=== PATIENT | male | born 1945 | race Caucasian/White ===

== ENCOUNTER 2018-03-28 16:33 | Inpatient (IN) | payer MEDICARE, OTHER ==
[2018-03-28] MEDS ORDERED: ASPIRIN 81 MG PO STA (16:53)
[2018-03-28] MEDS ORDERED: NITROGLYCERIN OINT 1 INCH/GM PACKET TOPICAL STA (16:53)
--- NOTE | 2018-03-28 16:56 | ED ---
General Adult HPI - General Chief complaint: Chest Pain Stated complaint: Chest pain Time Seen by Provider: 03/28/18 16:44 Source: patient, family, RN notes reviewed Mode of arrival: ambulatory Limitations: no limitations - History of Present Illness Initial comments: Patient is a pleasant 72-year-old male presenting to the emergency Department with chest discomfort. Patient has had intermittent chest heaviness over the past 4-5 days. Discomfort is mild at this time. Discomfort does get as bad as 7/10. Discomfort is not necessarily exertional. No associated dyspnea, nausea , or diaphoresis. No history of similar symptoms previously. Patient did have elective right hip surgery/replacement done approximately 5 weeks ago. No leg pain or leg swelling. No radiation. - Related Data Home Medications Medication Instructions Recorded Confirmed Calcium Carbonate [Calcium] 600 mg PO DAILY 03/28/18 03/28/18 Hydrocodone/Acetaminophen [[place] 1 tab PO Q6H PRN 03/28/18 03/28/18 7.5-325] Losartan [Cozaar] 50 mg PO DAILY 03/28/18 03/28/18 Meloxicam [Mobic] 7.5 mg PO BID 03/28/18 03/28/18 Multivitamins, Thera [Multivitamin 1 tab PO DAILY 03/28/18 03/28/18 (formulary)] Simvastatin 40 mg PO DAILY 03/28/18 03/28/18 Vit C/E/Zn/Coppr/Lutein/Zeaxan 1 cap PO BID 03/28/18 03/28/18 [Preservision Areds 2 Softgel] predniSONE 40 mg PO DAILY 03/28/18 03/28/18 Allergies Allergy/AdvReac Type Severity Reaction Status Date / Time No Known Allergies Allergy Verified 03/28/18 17:25 Review of Systems ROS Statement: Those systems with pertinent positive or pertinent negative responses have been documented in the HPI. ROS Other: All systems not noted in ROS Statement are negative. Constitutional: Denies: fever Eyes: Denies: eye pain ENT: Denies: ear pain Respiratory: Denies: cough, dyspnea Cardiovascular: Reports: chest pain Endocrine: Denies: fatigue Gastrointestinal: Denies: abdominal pain Genitourinary: Denies: dysuria Musculoskeletal: Denies: back pain Skin: Denies: rash Neurological: Denies: weakness Past Medical History Past Medical History: Hyperlipidemia, Hypertension History of Any Multi-Drug Resistant Organisms: None Reported Past Surgical History: Orthopedic Surgery Additional Past Surgical History / Comment(s): carpel tunnel Past Psychological History: No Psychological Hx Reported Smoking Status: Former smoker Past Alcohol Use History: None Reported Past Drug Use History: None Reported General Exam Limitations: no limitations General appearance: alert, in no apparent distress Head exam: Present: atraumatic Eye exam: Present: normal appearance, PERRL ENT exam: Present: normal oropharynx Neck exam: Present: normal inspection Respiratory exam: Present: normal lung sounds bilaterally. Absent: chest wall tenderness Cardiovascular Exam: Present: normal rhythm, bradycardia Expanded Peripheral pulses: 2+: Radial (R), Radial (L), Posterior Tibialis (R), Posterior Tibialis (L) GI/Abdominal exam: Present: soft. Absent: tenderness Extremities exam: Present: normal inspection. Absent: pedal edema, calf tenderness Neurological exam: Present: alert Psychiatric exam: Present: normal affect, normal mood Skin exam: Present: normal color Course Vital Signs 03/28/18 03/28/18 03/28/18 16:34 17:20 18:24 Temperature 98.2 F 98.2 F Pulse Rate 52 L 48 L 47 L Respiratory 18 18 Rate Blood Pressure 144/63 147/70 148/70 O2 Sat by Pulse 99 99 100 Oximetry EKG Findings - EKG Comments: EKG Findings:: Sinus bradycardia 51. PA 198. QRS 92. QT 452. QTC 416. Normal axis. Incomplete right bundle-branch block. No acute ST change. Medical Decision Making - Medical Decision Making Case discussed in detail with Dr. Dave, who will admit for Dr. Linton. She does request cardiology consult, echo, and subcutaneous heparin. Patient reevaluated and updated - Lab Data Result diagrams: 03/28/18 17:04 03/28/18 17:04 Lab Results 03/28/18 03/28/18 03/28/18 Range/Units 17:04 17:04 17:04 WBC 7.0 (3.8-10.6) k/uL RBC 4.28 L (4.30-5.90) m/uL Hgb 12.5 L (13.0-17.5) gm/dL Hct 39.9 (39.0-53.0) % MCV 93.2 (80.0-100.0) fL MCH 29.2 (25.0-35.0) pg MCHC 31.3 (31.0-37.0) g/dL RDW 14.8 (11.5-15.5) % Plt Count 259 (150-450) k/uL Neutrophils % 74 % Lymphocytes % 18 % Monocytes % 6 % Eosinophils % 1 % Basophils % 0 % Neutrophils # 5.2 (1.3-7.7) k/uL Lymphocytes # 1.2 (1.0-4.8) k/uL Monocytes # 0.4 (0-1.0) k/uL Eosinophils # 0.1 (0-0.7) k/uL Basophils # 0.0 (0-0.2) k/uL Hypochromasia Slight PT (9.0-12.0) sec INR (<1.2) APTT (22.0-30.0) sec D-Dimer (<0.60) mg/L FEU Sodium 139 (137-145) mmol/L Potassium 4.5 (3.5-5.1) mmol/L Chloride 105 (98-107) mmol/L Carbon Dioxide 27 (22-30) mmol/L Anion Gap 7 mmol/L BUN 27 H (9-20) mg/dL Creatinine 0.77 (0.66-1.25) mg/dL Est GFR (CKD-EPI)AfAm >90 (>60 ml/min/1.73 sqM) Est GFR (CKD-EPI)NonAf 90 (>60 ml/min/1.73 sqM) Glucose 103 H (74-99) mg/dL Calcium 9.5 (8.4-10.2) mg/dL Magnesium 2.3 (1.6-2.3) mg/dL Total Bilirubin 0.5 (0.2-1.3) mg/dL AST 52 (17-59) U/L ALT 32 (21-72) U/L Alkaline Phosphatase 80 (38-126) U/L Total Creatine Kinase 225 H (55-170) U/L CK-MB (CK-2) 3.0 H* (0.0-2.4) ng/mL CK-MB (CK-2) Rel Index 1.3 Troponin I 0.013 (0.000-0.034) ng/mL Total Protein 7.2 (6.3-8.2) g/dL Albumin 4.1 (3.5-5.0) g/dL Amylase 74 (30-110) U/L Lipase 124 (23-300) U/L 03/28/18 Range/Units 17:04 WBC (3.8-10.6) k/uL RBC (4.30-5.90) m/uL Hgb (13.0-17.5) gm/dL Hct (39.0-53.0) % MCV (80.0-100.0) fL MCH (25.0-35.0) pg MCHC (31.0-37.0) g/dL RDW (11.5-15.5) % Plt Count (150-450) k/uL Neutrophils % % Lymphocytes % % Monocytes % % Eosinophils % % Basophils % % Neutrophils # (1.3-7.7) k/uL Lymphocytes # (1.0-4.8) k/uL Monocytes # (0-1.0) k/uL Eosinophils # (0-0.7) k/uL Basophils # (0-0.2) k/uL Hypochromasia PT 10.1 (9.0-12.0) sec INR 1.0 (<1.2) APTT 22.1 (22.0-30.0) sec D-Dimer 1.29 H (<0.60) mg/L FEU Sodium (137-145) mmol/L Potassium (3.5-5.1) mmol/L Chloride (98-107) mmol/L Carbon Dioxide (22-30) mmol/L Anion Gap mmol/L BUN (9-20) mg/dL Creatinine (0.66-1.25) mg/dL Est GFR (CKD-EPI)AfAm (>60 ml/min/1.73 sqM) Est GFR (CKD-EPI)NonAf (>60 ml/min/1.73 sqM) Glucose (74-99) mg/dL Calcium (8.4-10.2) mg/dL Magnesium (1.6-2.3) mg/dL Total Bilirubin (0.2-1.3) mg/dL AST (17-59) U/L ALT (21-72) U/L Alkaline Phosphatase (38-126) U/L Total Creatine Kinase (55-170) U/L CK-MB (CK-2) (0.0-2.4) ng/mL CK-MB (CK-2) Rel Index Troponin I (0.000-0.034) ng/mL Total Protein (6.3-8.2) g/dL Albumin (3.5-5.0) g/dL Amylase (30-110) U/L Lipase (23-300) U/L - Radiology Data Radiology results: report reviewed (Computed tomography scan of the chest negative for pulmonary embolism.), image reviewed (Chest x-ray shows no acute process.) Disposition Clinical Impression: Chest pain Disposition: ADMITTED IP TO THIS HOSP Is patient prescribed a controlled substance at d/c from ED?: No Decision Time: 18:40
[2018-03-28 17:13] LABS: Basophils % (A) 0 %; Eosinophils # (A) 0.1 k/uL (0-0.7); Eosinophils % (A) 1 %; HCT 39.9 % (39.0-53.0); HGB 12.5 gm/dL (13.0-17.5); Hypochromasia Slight; Lymphocytes # (A) 1.2 k/uL (1.0-4.8); Lymphocytes % (A) 18 %; MCH 29.2 pg (25.0-35.0); MCHC 31.3 g/dL (31.0-37.0); MCV 93.2 fL (80.0-100.0); Mean Platelet Volume 6.7; Monocytes # (A) 0.4 k/uL (0-1.0); Monocytes % (A) 6 %; Neutrophils # (A) 5.2 k/uL (1.3-7.7); Neutrophils % (A) 74 %; Platelet Count 259 k/uL (150-450); RBC 4.28 m/uL (4.30-5.90); RDW 14.8 % (11.5-15.5)
[2018-03-28 17:25] LABS: ALT 32 U/L (21-72); AST 52 U/L (17-59); Albumin 4.1 g/dL (3.5-5.0); Alkaline Phosphatase 80 U/L (38-126); Amylase 74 U/L (30-110); Anion Gap 7 mmol/L; Blood Urea Nitrogen 27 mg/dL (9-20); Calcium 9.5 mg/dL (8.4-10.2); Carbon Dioxide 27 mmol/L (22-30); Chloride 105 mmol/L (98-107); Glucose 103 mg/dL (74-99); Lipase 124 U/L (23-300); Magnesium 2.3 mg/dL (1.6-2.3); Partial Thromboplastin Time 22.1 sec (22.0-30.0); Potassium 4.5 mmol/L (3.5-5.1); Prothrombin Time 10.1 sec (9.0-12.0); Sodium 139 mmol/L (137-145); Total Bilirubin 0.5 mg/dL (0.2-1.3); Total Protein 7.2 g/dL (6.3-8.2)
--- NOTE | 2018-03-28 17:30 | XR ---
EXAMINATION TYPE: XR chest 2V DATE OF EXAM: 03/28/2018 COMPARISON: NONE HISTORY: Chest pain. TECHNIQUE: Frontal and lateral views of the chest are obtained. FINDINGS: There is no heart failure nor confluent pneumonic infiltrate. There is right shoulder pros thesis. Thoracic aorta is atheromatous. There is no pleural effusion. There are chest leads. IMPRESSION: No active cardiopulmonary disease. Normal heart size.
[2018-03-28 17:33] LABS: D-Dimer 1.29 mg/L FEU (<0.60)
[2018-03-28 17:48] LABS: Troponin I 0.013 ng/mL (0.000-0.034)
--- NOTE | 2018-03-28 18:21 | CT ---
EXAMINATION TYPE: CT angio chest DATE OF EXAM: 03/28/2018 6:03 PM COMPARISON: None HISTORY: Chest heaviness. CT DLP: 647 mGycm Automated exposure control for dose reduction was used. CONTRAST: CTA scan of the thorax is performed with IV Contrast, patient injected with 100 mL of Isovue 370, pul monary embolism protocol. There are 3-D post processed images.. FINDINGS: There is mild linear density along the right minor fissure. There is no evidence of a pulmonary mass. There is no pleural effusion. Heart size is normal. I see no filling defects in the pulmonary arteries. Thoracic aorta is atheromatous. There is no evide nce of aneurysm or dissection. There is no mediastinal adenopathy. There are a few paratracheal lymph nodes that measure up to 1 cm. There are no hilar masses. There is spurring in the thoracic spine. IMPRESSION: NO EVIDENCE OF PULMONARY EMBOLISM. MILD ATHEROSCLEROTIC VASCULAR DISEASE. Minimal pleural thickening in the right minor fissure of uncertain significance.
[2018-03-28] MEDS ORDERED: NITROGLYCERIN SL TABS 0.4 MG TAB SUBLINGUAL PRN (18:38)
[2018-03-28] MEDS: HEPARIN SODIUM,PORCINE 5,000 UNIT/ML 1 ML VIAL SQ SCH (20:27)
[2018-03-28 23:37] LABS: Creatine Kinase MB 2.1 ng/mL (0.0-2.4); Troponin I 0.012 ng/mL (0.000-0.034)
[2018-03-28] MEDS: HYDROcodone/APAP 7.5-325MG 1 EACH TAB PO PRN (23:59)
[2018-03-29] MEDS: NITROGLYCERIN OINT 1 INCH/GM PACKET TOPICAL SCH ×2 (00:02→05:06)
[2018-03-29] MEDS: HEPARIN SODIUM,PORCINE 5,000 UNIT/ML 1 ML VIAL SQ SCH ×4 (00:02→23:07)
[2018-03-29 02:26] LABS: Cholesterol 195 mg/dL (<200); HDL Cholesterol 56 mg/dL (40-60); LDL Cholesterol,Calculated 121 mg/dL (0-99); Triglycerides 90 mg/dL (<150)
[2018-03-29 05:57] LABS: Creatine Kinase MB 1.9 ng/mL (0.0-2.4); Troponin I 0.012 ng/mL (0.000-0.034)
[2018-03-29] MEDS ORDERED: REGADENOSON 0.4 MG/5 ML SYRINGE IV ONE (07:44)
[2018-03-29] MEDS ORDERED: AMINOPHYLLINE 500 MG/20 ML VIAL IV PRN (07:44)
--- NOTE | 2018-03-29 08:46 | P.CRDCN ---
History of Present Illness History of present illness: Mr. Shafer is a pleasant 72-year-old male past medical history significant for hypertension, dyslipidemia, sinus bradycardia, sleep apnea, bariatric surgery and recent right hip replacement. He denies coronary artery disease and has never seen a traffic court magistrate for any reason. We have been asked to see him in consultation for chest pain. He states he has a heavy pressure sensation in his chest since approximately Tuesday or Tuesday of last week. The pain is located in the midsternal region and it feels so there as a weight sitting on his chest. The symptoms are intermittent in nature and not associated with any specific activity. He denies radiation to the arm, back, neck or jaw. He denies associated shortness of breath, dizziness, palpitations , nausea, vomiting or diaphoresis. He recently underwent right hip replacement February 15 and has been going to physical therapy. He went to physical therapy on Tuesday was having this heaviness in the morning. He was able to do EXERCISES and the pain did not get any worse. He says primary care physician yesterday and was sent in for further evaluation. Denies having any chest discomfort since coming to the hospital. EKG reveals sinus mechanism with incomplete right bundle branch block no acute ST or T wave abnormalities noted. Chest x-ray is negative for an acute cardiopulmonary process. CTA of the chest negative for pulmonary embolism with evidence of mild atherosclerotic vascular disease of the thoracic aorta. Laboratory data reviewed, hemoglobin 12.5, platelets 259, d-dimer 1.29, sodium 139, potassium 4.5, magnesium 2.3, creatinine 0.77, cardiac enzymes negative 3 , LDL 121, HDL 56. Current cardiac medications include simvastatin 40 mg daily and losartan 50 mg daily. He also takes [place], prednisone, multivitamin, Moban and calcium supplementation. There is no old diagnostic testing to review. Review of Systems At the time of my exam: CONSTITUTIONAL: Denies fever. Denies chills. EYES: Denies blurred vision. Denies vision changes. Denies eye pain. EARS, NOSE, MOUTH & THROAT: Denies headache. Denies sore throat. Denies ear pain. CARDIOVASCULAR: Denies chest pain. Denies shortness of breath. Denies orthopnea. Denies PND. Denies palpitations. RESPIRATORY: Denies cough. GASTROINTESTINAL: Denies abdominal pain. Denies diarrhea. Denies constipation. Denies nausea. Denies vomiting. MUSCULOSKELETAL: Denies myalgias. INTEGUMENTARY: Denies pruitis. Denies rash. NEUROLOGIC: Denies numbness. Denies tingling. Denies weakness. PSYCHIATRIC: Denies anxiety. Denies depression. ENDOCRINE: Denies fatigue. Denies weight change. Denies polydipsia. Denies polyurina. GENITOURINARY: Denies burning, hematuria or urgency with micturation. HEMATOLOGIC: Denies history of anemia. Denies bleeding. Past Medical History Past Medical History: Eye Disorder, Hyperlipidemia, Hypertension, Osteoarthritis (OA), Sleep Apnea/CPAP/BIPAP Additional Past Medical History / Comment(s): [place] 2002, in past was treated for diabetres but after bariatric sx lost 100# no longer needed insuling and only checks bs occ. no longer needs cpap machine since wt loss. ddd pt stated he had his back stretched by jayson wilson at [employer] [facility] in [place]. has the start of macular degeneration-has'nt progressed inpast 3 years. has abrasion lt lower leg. History of Any Multi-Drug Resistant Organisms: None Reported Past Surgical History: Bariatric Surgery, Orthopedic Surgery Additional Past Surgical History / Comment(s): bilcarpel tunnel release,gastric sleeve, alice cataracts, rt foot reconstruction d/t being flat footed. lt knee replacment, rt shoulder replacment, rt hip replacement, lt shoulder rebuilt Past Anesthesia/Blood Transfusion Reactions: No Reported Reaction Smoking Status: Former smoker - Past Family History Mother Family Medical History: Dementia Additional Family Medical History / Comment(s): at age 94 -dementia Father Family Medical History: Diabetes Mellitus, Myocardial Infarction ([place]) Additional Family Medical History / Comment(s): at age 69 from [place]. Medications and Allergies Home Medications Medication Instructions Recorded Confirmed Type Calcium Carbonate [Calcium] 600 mg PO DAILY 03/28/18 03/28/18 History Hydrocodone/Acetaminophen [[place] 1 tab PO Q6H PRN 03/28/18 03/28/18 History 7.5-325] Losartan [Cozaar] 50 mg PO DAILY 03/28/18 03/28/18 History Meloxicam [Mobic] 7.5 mg PO BID 03/28/18 03/28/18 History Multivitamins, Thera [Multivitamin 1 tab PO DAILY 03/28/18 03/28/18 History (formulary)] Simvastatin 40 mg PO DAILY 03/28/18 03/28/18 History Vit C/E/Zn/Coppr/Lutein/Zeaxan 1 cap PO BID 03/28/18 03/28/18 History [Preservision Areds 2 Softgel] predniSONE 40 mg PO DAILY 03/28/18 03/28/18 History Allergies Allergy/AdvReac Type Severity Reaction Status Date / Time No Known Allergies Allergy Verified 03/28/18 17:25 Physical Exam Vitals: Vital Signs Temp Pulse Pulse Resp BP BP Pulse Ox 03/29/18 04:10 97.5 F L 41 L 18 124/67 95 03/29/18 04:00 18 03/29/18 00:00 98.3 F 43 L 16 128/63 97 03/28/18 20:00 18 03/28/18 19:50 97.4 F L 50 L 18 169/71 95 03/28/18 19:44 97.8 F 03/28/18 19:30 45 L 19 168/79 97 03/28/18 18:24 98.2 F 47 L 18 148/70 100 03/28/18 17:20 48 L 147/70 99 03/28/18 16:34 98.2 F 52 L 18 144/63 99 Intake and Output 03/28/18 03/29/18 03/29/18 22:59 06:59 14:59 Other: # Voids 2 Weight 113.2 kg 114.2 kg GENERAL: This is a 72-year-old male in no apparent distress at the time of my examination. HEENT: Head is atraumatic, normocephalic. Pupils are equal, round. Sclerae anicteric. Conjunctivae are clear. Mucous membranes of the mouth are moist. Neck is supple. There is no jugular venous distention. No carotid bruit is heard. LUNGS: Clear to auscultation no wheezes, rales or rhonchi. No chest wall tenderness is noted on palpation or with deep breathing. HEART: Slow, regular rate and rhythm without murmurs, rubs or gallops. S1 and S2 heard. ABDOMEN: Soft, nontender. Bowel sounds are heard. No organomegaly noted. EXTREMITIES: No evidence of peripheral edema and no calf tenderness noted. VASCULAR: Radial and dorsalis pedis pulses palpated, no evidence of clubbing. NEUROLOGIC: Patient is awake, alert and oriented x3. Results 03/28/18 17:04 03/28/18 17:04 Cardiac Enzymes 03/28/18 03/28/18 03/28/18 Range/Units 17:04 17:04 22:48 AST 52 (17-59) U/L CK-MB (CK-2) 3.0 H* 2.1 (0.0-2.4) ng/mL Troponin I 0.013 0.012 (0.000-0.034) ng/mL 03/29/18 Range/Units 05:18 AST (17-59) U/L CK-MB (CK-2) 1.9 (0.0-2.4) ng/mL Troponin I 0.012 (0.000-0.034) ng/mL Coagulation 03/28/18 Range/Units 17:04 PT 10.1 (9.0-12.0) sec APTT 22.1 (22.0-30.0) sec Lipids 03/28/18 Range/Units 17:04 Triglycerides 90 (<150) mg/dL Cholesterol 195 (<200) mg/dL HDL Cholesterol 56 (40-60) mg/dL CBC 03/28/18 Range/Units 17:04 WBC 7.0 (3.8-10.6) k/uL RBC 4.28 L (4.30-5.90) m/uL Hgb 12.5 L (13.0-17.5) gm/dL Hct 39.9 (39.0-53.0) % Plt Count 259 (150-450) k/uL Comprehensive Metabolic Panel 03/28/18 Range/Units 17:04 Sodium 139 (137-145) mmol/L Potassium 4.5 (3.5-5.1) mmol/L Chloride 105 (98-107) mmol/L Carbon Dioxide 27 (22-30) mmol/L BUN 27 H (9-20) mg/dL Creatinine 0.77 (0.66-1.25) mg/dL Glucose 103 H (74-99) mg/dL Calcium 9.5 (8.4-10.2) mg/dL AST 52 (17-59) U/L ALT 32 (21-72) U/L Alkaline Phosphatase 80 (38-126) U/L Total Protein 7.2 (6.3-8.2) g/dL Albumin 4.1 (3.5-5.0) g/dL Current Medications Generic Name Dose Route Start Last Admin Trade Name Freq PRN Reason Stop Dose Admin Hydrocodone Bitart/Acetaminophen 1 each 03/28/18 21:21 03/28/18 23:59 [place] 7.5-325 PO 1 each Q6H PRN Administration Pain Aspirin 325 mg 03/29/18 09:00 Aspirin PO DAILY [facility] Heparin Sodium (Porcine) 5,000 unit 03/28/18 18:45 03/29/18 00:02 Heparin SQ Not Given Q8HR [facility] Nitroglycerin 1 inch 03/29/18 00:00 03/29/18 05:06 Nitro-Bid Oint TOPICAL Not Given Q6HR [facility] Nitroglycerin 0.4 mg 03/28/18 18:38 Nitrostat SUBLINGUAL Q5M PRN Chest Pain Sodium Chloride 10 ml 03/28/18 21:00 03/28/18 20:29 Saline Flush IV 10 ml BID MERLYN Administration Intake and Output 03/28/18 03/29/18 03/29/18 22:59 06:59 14:59 Other: # Voids 2 Weight 113.2 kg 114.2 kg 03/28/18 17:04 03/28/18 17:04 Assessment and Plan Assessment: ASSESSMENT Chest pain, atypical. An acute coronary event has been ruled out with no EKG evidence of ischemia and negative cardiac enzymes. Hypertension Dyslipidemia Sinus bradycardia, asymptomatic Recent right hip replacement, December 2017 PLAN An acute coronary event has been ruled out. Obtain 2D echocardiogram and doppler study to assess cardiac structure and function. Perform Lexiscan stress test to assess for reversible cardiac ischemia. Further recommendations to follow based on clinical course and diagnostic test findings. Thank you kindly for this consultation. Nurse Practitioner note has been reviewed, I agree with a documented findings and plan of care. Patient was seen and examined.
[2018-03-29] MEDS ORDERED: ASPIRIN 325 MG TAB PO SCH (09:00)
[2018-03-29] MEDS ORDERED: ASPIRIN 81 MG PO SCH (09:00)
[2018-03-29] MEDS ORDERED: ATORVASTATIN 20 MG TAB PO SCH ×2 (09:00→21:00)
--- NOTE | 2018-03-29 10:35 | ECHOF ---
Referral Reason:cp MEASUREMENTS -------- HEIGHT: 162.6 cm WEIGHT: 118.4 kg BP: RVIDd: 3.4 cm (< 3.3) IVSd: 1.3 cm (0.6 - 1.1) LVIDd: 5.1 cm (3.9 - 5.3) LVPWd: 1.2 cm (0.6 - 1.1) IVSs: 1.4 cm LVIDs: 4.3 cm LVPWs: 1.1 cm LA Diam: 3.9 cm (2.7 - 3.8) LAESV Index (A-L): 26.24 ml/m Ao Diam: 3.5 cm (2.0 - 3.7) AV Cusp: 2.2 cm (1.5 - 2.6) LA Diam: 4.8 cm (2.7 - 3.8) MV EXCURSION: 13.644 mm (> 18.000) MV EF SLOPE: 59 mm/s (70 - 150) EPSS: 0.8 cm MV E Luis: 0.63 m/s MV DecT: 222 ms MV A Luis: 0.79 m/s MV E/A Ratio: 0.80 RAP: 5.00 mmHg RVSP: 22.12 mmHg FINDINGS -------- Sinus rhythm. Resting bradycardia (HR<60bpm). This was a technically adequate study. The left ventricular size is normal. There is mild concentric left ventricular hypertrophy. Overa ll left ventricular systolic function is normal with, an EF between 55 - 60 %. The right ventricle is normal in size. Normal LA size by volume 22+/-6 ml/m2. The right atrial size is normal. The aortic valve is trileaflet, and appears structurally normal. No aortic stenosis or regurgitation. Mild mitral annular calcification present. Mild mitral regurgitation is present. Mild tricuspid regurgitation present. There is no evidence of pulmonary hypertension. The right v entricular systolic pressure, as measured by Doppler, is 22.12mmHg. Trace/mild (physiologic) pulmonic regurgitation. The aortic root size is normal. There is no pericardial effusion. CONCLUSIONS -------- 1. Sinus rhythm. 2. The left ventricular size is normal. 3. There is mild concentric left ventricular hypertrophy. 4. Overall left ventricular systolic function is normal with, an EF between 55 - 60 %. 5. Normal LA size by volume 22+/-6 ml/m2. 6. The aortic valve is trileaflet, and appears structurally normal. No aortic stenosis or regurgitati on. 7. Mild mitral annular calcification present. 8. Mild mitral regurgitation is present. 9. Mild tricuspid regurgitation present. 10. There is no evidence of pulmonary hypertension. 11. Trace/mild (physiologic) pulmonic regurgitation. 12. The aortic root size is normal. 13. There is no pericardial effusion. SALES TECHNICIAN [employer] THE[employer]: Ophelia Connell RDCS
[2018-03-29] MEDS: LOSARTAN 50 MG TAB PO SCH (10:47)
--- NOTE | 2018-03-29 10:53 | NM ---
EXAMINATION TYPE: NM stress lexiscan cardiolite DATE OF EXAM: 03/29/2018 COMPARISON: NONE HISTORY: Chest pain TECHNIQUE: After the intravenous administration of 10.45 mCi Tc 99m Sestamibi - Cardiolite resting S PECT images acquired 65 minutes post injection. The patient received 0.4mg Lexiscan, 26.8 mCi Tc 99m Sestamibi - Stress images obtained [address] injection FINDINGS: There is loss of radiotracer through the inferior wall on both rest and stress images. Find ings appear matched. No stress-induced ischemic changes are evident. There is mild hypokinesia. The ejection fraction of 47% is slightly low. Normal greater than 50%. Onel e dyskinesia may be at the cardiac apex. There may be some minimal reversibility at the cardiac apex best visualized on the coronal SPECT imag ing IMPRESSION: 1. Suggestion of minimal stress-induced ischemic change at the cardiac apex. This is supported by rudy ar map findings. 2. 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 3. Global hypokinesia. Some dyskinesia cardiac apex is present. 4. Ejection fraction is low at 47%
--- NOTE | 2018-03-29 11:03 | EST ---
EXERCISE STRESS AGE: 72 SEX: M HT: 66" WT: 251 PROTOCOL: Lexiscan Cardiolite Stress Test HEART RATE REST: 41 BLOOD PRESSURE REST: 129/72 MAXIMUM HEART RATE ACHIEVED: 66 MAXIMUM BLOOD PRESSURE: 129/72 85% MPHR: 124 100% MPHR: 146 INDICATIONS: Chest pain. CLINICAL INFORMATION: Baseline rhythm sinus mechanism rate 41, normal axis and intervals, normal electrocardiogram. Baseline blood pressure 129/72 mmHg. Patient received an injection of Lexiscan. Electrocardiographic monitoring revealed occasional PACs. There was no evidence of diagnostic ischemic ST deviation. Cardiolite was injected per protocol. CONCLUSION: 1. Nondiagnostic electrocardiograph stress testing. 2. Nuclear images will be reported separately. MMODL / IJN: [id number] /
[2018-03-29] MEDS ORDERED: NEOMYCIN-BACITRACIN-POLY OINT 14 GM TUBE TOPICAL PRN (12:43)
[2018-03-29] MEDS ORDERED: ALPRAZolam 0.25 MG TAB PO PRN (13:42)
[2018-03-29] MEDS ORDERED: SODIUM CHLORIDE 0.9% 1,000 ML in EMPTY BAG 1 BAG IV ONE (13:42)
[2018-03-29] MEDS ORDERED: ALPRAZolam 0.5 MG TAB PO PRN (13:42)
--- NOTE | 2018-03-29 13:42 | P.PN ---
Progress Note - Text Lexiscan stress test performed revealed suggestion of minimal stress-induced ischemic changes at the cardiac apex with evidence of prior infarct with a fixed defect along the inferior wall, global hypokinesia with an ejection fraction low at 47%. He's findings have been discussed in detail with the patient and we recommend proceeding with cardiac catheterization. I have discussed the risks, benefits and alternative therapies for the above-mentioned procedure and for both sedation/analgesia as well as necessary blood product administration, if indicated, as they pertain to this patient. The patient has indicated understanding and acceptance of the risks and procedures discussed. Questions have been answered appropriately and he is agreeable to move forward with above stated procedure. Case has been boarded with Dr. Burkett tomorrow morning.
--- NOTE | 2018-03-29 14:50 | P.HPIM ---
History of Present Illness H&P Date: 03/29/18 Chief Complaint: Chest pain This 72-year-old gentleman patient of Dr. Tigre Linton. He has underlying history of hypertension, hyperlipidemia, obstructive sleep apnea, sinus bradycardia, with recent right hip replacement on 02/15/2018 anterior approach at [facility] Dr. Cummings. He did well, complaining of chest pressure. Patient has never seen a business administration professor in the past, no known history of CAD. Chest pain occurred one week prior to admission, with pressure, off and on without any particular aggravation or palliative measures, it is midsternal, without any regurgitation, with symptoms of feeling like wavy sitting on his chest. Patient denies any dysphagia, no dysarthria, no likeness of dizziness or palpitation, patient comes to the emergency room for the above complaints. Patient's chest pain-free while in the hospital. While in the emergency room EKG showed sinus mechanism with incomplete right bundle branch block, no acute ST-T wave changes, chest x-ray shows no acute cardiopulmonary process, CTA of the chest failed to reveal any pulmonary emboli , has mild atherosclerotic vascular disease of the aorta, d-dimer 1.29, creatinine 0.7 troponins are negative 3, LDL of 121 Review of Systems Constitutional: Reports as per HPI, Denies anorexia, Denies chills, Denies chronic headaches, Denies chronic pain, Denies daytime sleepiness, Denies fatigue, Denies fever, Denies lethargy, Denies malaise, Denies night sweats, Denies poor appetite, Denies sweats, Denies weakness, Denies weight gain, Denies weight loss Ears, nose, mouth and throat: Reports as per HPI Cardiovascular: Reports as per HPI, Reports chest pain, Denies claudication, Denies decreased exercise tolerance, Denies dyspnea on exertion, Denies edema, Denies high blood pressure, Denies irregular heart beat, Denies leg edema, Denies lightheadedness, Denies orthopnea, Denies palpitations, Denies paroxysmal nocturnal dyspnea, Denies phlebitis, Denies rapid heart beat, Denies shortness of breath, Denies syncope Respiratory: Reports as per HPI, Denies congestion, Denies cough, Denies cough with sputum, Denies dyspnea, Denies excessive sputum, Denies hemoptysis, Denies home oxygen, Denies pain, Denies pain on inspiration, Denies pleurisy, Denies respiratory infections, Denies sleep apnea, Denies snoring, Denies wheezing Gastrointestinal: Reports as per HPI, Denies abdominal pain, Denies belching, Denies bloating, Denies BRBPR, Denies change in bowel habits, Denies coffee ground emesis, Denies constipation, Denies diarrhea, Denies dyspepsia, Denies early satiety, Denies excessive gas, Denies heartburn, Denies hematemesis, Denies hematochezia, Denies indigestion, Denies jaundice, Denies lactose intolerance, Denies loss of appetite, Denies melena, Denies nausea, Denies vomiting Genitourinary: Reports as per HPI Musculoskeletal: Reports as per HPI, Denies arm numbness/tingling, Denies atrophy, Denies fractures, Denies frequent falls, Denies gait dysfunction, Denies hot joints, Denies leg numbness/tingling, Denies limitation of motion, Denies loss of height, Denies low back pain, Denies morning stiffness, Denies muscle cramps, Denies muscle weakness, Denies myalgias, Denies neck pain, Denies neck stiffness, Denies prior amputations, Denies redness of joints, Denies shooting arm pain, Denies shooting leg pain Integumentary: Reports as per HPI Neurological: Reports as per HPI, Denies aphasia, Denies ataxia, Denies balance difficulties, Denies burning pain, Denies change in mentation, Denies change in smell/taste, Denies change in speech, Denies confusion, Denies convulsions, Denies double vision, Denies gait dysfunction, Denies head injury, Denies headaches, Denies hearing difficulties, Denies lack of coordination, Denies loss of vision, Denies memory loss, Denies migraines, Denies motor disturbance, Denies numbness, Denies paralysis, Denies paresthesias, Denies seizures, Denies sensory deficit, Denies spasticity, Denies syncope, Denies tic, Denies tingling , Denies transient paralysis, Denies tremors, Denies vertigo, Denies weakness, Denies visual changes Psychiatric: Reports as per HPI, Denies anhedonia, Denies anxiety, Denies anxiety attacks, Denies change in appetite, Denies change in libido, Denies change in sleep habits, Denies confusion, Denies depression, Denies difficulty concentrating, Denies disorientation, Denies hallucinations, Denies hopelessness , Denies hypersomnia, Denies insomnia, Denies irritability, Denies memory loss, Denies mood swings, Denies paranoia, Denies sadness/tearfulness, Denies sleep disturbances, Denies suicidal ideation Endocrine: Reports as per HPI Hematologic/Lymphatic: Reports as per HPI, Denies easy bleeding, Denies easy bruising, Denies lymphadenopathy, Denies lymphedema, Denies thrombophilia Allergic/Immunologic: Reports as per HPI, Denies allergic rhinitis, Denies anaphylaxis, Denies angioedema, Denies gluten intolerance, Denies persistent infections, Denies seasonal allergies, Denies urticaria, Denies wheezing Past Medical History Past Medical History: Eye Disorder, Hyperlipidemia, Hypertension, Osteoarthritis (OA), Sleep Apnea/CPAP/BIPAP Additional Past Medical History / Comment(s): [place] 2002, in past was treated for diabetres but after bariatric sx lost 100# no longer needed insuling and only checks bs occ. no longer needs cpap machine since wt loss. ddd pt stated he had his back stretched by jayson wilson at [employer] in [place]. has the start of macular degeneration-has'nt progressed inpast 3 years. has abrasion lt lower leg. History of Any Multi-Drug Resistant Organisms: None Reported Past Surgical History: Bariatric Surgery, Orthopedic Surgery Additional Past Surgical History / Comment(s): bilcarpel tunnel release,gastric sleeve, alice cataracts, rt foot reconstruction d/t being flat footed. lt knee replacment, rt shoulder replacment, rt hip replacement, lt shoulder rebuilt Past Anesthesia/Blood Transfusion Reactions: No Reported Reaction Smoking Status: Former smoker - Past Family History Mother Family Medical History: Dementia Additional Family Medical History / Comment(s): at age 94 -dementia Father Family Medical History: Diabetes Mellitus, Myocardial Infarction ([place]) Additional Family Medical History / Comment(s): at age 69 from [place]. Brother(s) Family Medical History: Diabetes Mellitus Sister(s) Family Medical History: Cancer (Ovarian) Medications and Allergies Home Medications Medication Instructions Recorded Confirmed Type Calcium Carbonate [Calcium] 600 mg PO DAILY 03/28/18 03/28/18 History Hydrocodone/Acetaminophen [[place] 1 tab PO Q6H PRN 03/28/18 03/28/18 History 7.5-325] Losartan [Cozaar] 50 mg PO DAILY 03/28/18 03/28/18 History Meloxicam [Mobic] 7.5 mg PO BID 03/28/18 03/28/18 History Multivitamins, Thera [Multivitamin 1 tab PO DAILY 03/28/18 03/28/18 History (formulary)] Simvastatin 40 mg PO DAILY 03/28/18 03/28/18 History Vit C/E/Zn/Coppr/Lutein/Zeaxan 1 cap PO BID 03/28/18 03/28/18 History [Preservision Areds 2 Softgel] predniSONE 40 mg PO DAILY 03/28/18 03/28/18 History Allergies Allergy/AdvReac Type Severity Reaction Status Date / Time atorvastatin AdvReac Unknown Verified 03/29/18 11:01 Physical Exam Vitals: Vital Signs Temp Pulse Pulse Resp BP BP BP 03/29/18 12:00 58 L 18 03/29/18 11:38 98.1 F 58 L 18 136/58 03/29/18 08:00 44 L 18 03/29/18 07:15 98.1 F 44 L 18 122/65 03/29/18 04:10 97.5 F L 41 L 18 124/67 03/29/18 04:00 18 03/29/18 00:00 98.3 F 43 L 16 128/63 03/28/18 20:00 18 03/28/18 19:50 97.4 F L 50 L 18 169/71 03/28/18 19:44 97.8 F 03/28/18 19:30 45 L 19 168/79 03/28/18 18:24 98.2 F 47 L 18 148/70 03/28/18 17:20 48 L 147/70 03/28/18 16:34 98.2 F 52 L 18 144/63 Pulse Ox 03/29/18 12:00 03/29/18 11:38 97 03/29/18 08:00 03/29/18 07:15 98 03/29/18 04:10 95 03/29/18 04:00 03/29/18 00:00 97 03/28/18 20:00 03/28/18 19:50 95 03/28/18 19:44 03/28/18 19:30 97 03/28/18 18:24 100 03/28/18 17:20 99 03/28/18 16:34 99 Intake and Output 03/28/18 03/29/18 03/29/18 22:59 06:59 14:59 Other: Voiding Method Toilet # Voids 2 2 Weight 113.2 kg 114.2 kg 113.852 kg - Constitutional General appearance: cooperative, no acute distress - EENT Eyes: anicteric sclerae, EOMI, PERRLA, dentition normal, normal appearance ENT: NA/AT, normal oropharynx - Neck Neck: no lymphadenopathy, normal ROM, no other, no rigidity, no stridor, no thyromegaly - Respiratory Respiratory: bilateral: CTA, negative: diminished, dullness - Cardiovascular Rhythm: regular Abnormal Heart Sounds: no systolic murmur, no diastolic murmur, no rub, no S3 Gallop, no S4 Gallop, no click, no other - Gastrointestinal General gastrointestinal: normal bowel sounds, soft - Integumentary Integumentary: decreased turgor, normal - Neurologic Neurologic: CNII-XII intact - Musculoskeletal Musculoskeletal: gait normal, strength equal bilaterally - Psychiatric Psychiatric: A&O x's 3, appropriate affect, intact judgment & insight Results CBC & Chem 7: 03/28/18 17:04 03/28/18 17:04 Labs: Abnormal Lab Results - Last 24 Hours (Table) 03/28/18 03/28/18 03/28/18 Range/Units 17:04 17:04 17:04 RBC 4.28 L (4.30-5.90) m/uL Hgb 12.5 L (13.0-17.5) gm/dL D-Dimer (<0.60) mg/L FEU BUN 27 H (9-20) mg/dL Glucose 103 H (74-99) mg/dL Total Creatine Kinase 225 H (55-170) U/L CK-MB (CK-2) 3.0 H* (0.0-2.4) ng/mL LDL Cholesterol, Calc (0-99) mg/dL 03/28/18 03/28/18 Range/Units 17:04 17:04 RBC (4.30-5.90) m/uL Hgb (13.0-17.5) gm/dL D-Dimer 1.29 H (<0.60) mg/L FEU BUN (9-20) mg/dL Glucose (74-99) mg/dL Total Creatine Kinase (55-170) U/L CK-MB (CK-2) (0.0-2.4) ng/mL LDL Cholesterol, Calc 121 H (0-99) mg/dL Laboratory Results WBC 7.0 k/uL (3.8-10.6) 03/28/18 17:04 RBC 4.28 m/uL (4.30-5.90) L 03/28/18 17:04 Hgb 12.5 gm/dL (13.0-17.5) L 03/28/18 17:04 Hct 39.9 % (39.0-53.0) 03/28/18 17:04 MCV 93.2 fL (80.0-100.0) 03/28/18 17:04 MCH 29.2 pg (25.0-35.0) 03/28/18 17:04 MCHC 31.3 g/dL (31.0-37.0) 03/28/18 17:04 RDW 14.8 % (11.5-15.5) 03/28/18 17:04 Plt Count 259 k/uL (150-450) 03/28/18 17:04 Neutrophils % 74 % 03/28/18 17:04 Lymphocytes % 18 % 03/28/18 17:04 Monocytes % 6 % 03/28/18 17:04 Eosinophils % 1 % 03/28/18 17:04 Basophils % 0 % 03/28/18 17:04 Neutrophils # 5.2 k/uL (1.3-7.7) 03/28/18 17:04 Lymphocytes # 1.2 k/uL (1.0-4.8) 03/28/18 17:04 Monocytes # 0.4 k/uL (0-1.0) 03/28/18 17:04 Eosinophils # 0.1 k/uL (0-0.7) 03/28/18 17:04 Basophils # 0.0 k/uL (0-0.2) 03/28/18 17:04 Hypochromasia Slight 03/28/18 17:04 PT 10.1 sec (9.0-12.0) 03/28/18 17:04 INR 1.0 (<1.2) 03/28/18 17:04 APTT 22.1 sec (22.0-30.0) 03/28/18 17:04 D-Dimer 1.29 mg/L FEU (<0.60) H 03/28/18 17:04 Sodium 139 mmol/L (137-145) 03/28/18 17:04 Potassium 4.5 mmol/L (3.5-5.1) 03/28/18 17:04 Chloride 105 mmol/L (98-107) 03/28/18 17:04 Carbon Dioxide 27 mmol/L (22-30) 03/28/18 17:04 Anion Gap 7 mmol/L 03/28/18 17:04 BUN 27 mg/dL (9-20) H 03/28/18 17:04 Creatinine 0.77 mg/dL (0.66-1.25) 03/28/18 17:04 Est GFR (CKD-EPI)AfAm >90 (>60 ml/min/1.73 sqM) 03/28/18 17:04 Est GFR (CKD-EPI)NonAf 90 (>60 ml/min/1.73 sqM) 03/28/18 17:04 Glucose 103 mg/dL (74-99) H 03/28/18 17:04 Calcium 9.5 mg/dL (8.4-10.2) 03/28/18 17:04 Magnesium 2.3 mg/dL (1.6-2.3) 03/28/18 17:04 Total Bilirubin 0.5 mg/dL (0.2-1.3) 03/28/18 17:04 AST 52 U/L (17-59) 03/28/18 17:04 ALT 32 U/L (21-72) 03/28/18 17:04 Alkaline Phosphatase 80 U/L (38-126) 03/28/18 17:04 Total Creatine Kinase 111 U/L (55-170) 03/29/18 05:18 CK-MB (CK-2) 1.9 ng/mL (0.0-2.4) 03/29/18 05:18 CK-MB (CK-2) Rel Index 1.7 03/29/18 05:18 Troponin I 0.012 ng/mL (0.000-0.034) 03/29/18 05:18 Total Protein 7.2 g/dL (6.3-8.2) 03/28/18 17:04 Albumin 4.1 g/dL (3.5-5.0) 03/28/18 17:04 Triglycerides 90 mg/dL (<150) 03/28/18 17:04 Cholesterol 195 mg/dL (<200) 03/28/18 17:04 LDL Cholesterol, Calc 121 mg/dL (0-99) H 03/28/18 17:04 HDL Cholesterol 56 mg/dL (40-60) 03/28/18 17:04 Amylase 74 U/L (30-110) 03/28/18 17:04 Lipase 124 U/L (23-300) 03/28/18 17:04 Thrombosis Risk Factor Assmnt - Choose All That Apply Each Factor Represents 1 point: History of prior major surgery (<1month), Obesity (BMI >25) Each Risk Factor Represents 2 Points: Age 61-74 years Thrombosis Risk Factor Assessment Total Risk Factor Score: 4 Thrombosis Risk Factor Assessment Level: Moderate Risk Assessment and Plan Plan: 1. Chest pain ruled out myocardial infarction, 3 negative troponins, EKG failed to reveal any ischemia nature however with risk factors, stress test was performed, was seen in consultation by cardiology, patient is to continue on aspirin, and beta blockers and statins 2. Abnormal stress test as performed during this current hospital stay, patient would undergo cardiac catheterization in the morning 03/30/2018 3. Hypertension on losartan 50 mg daily 4. 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 5. Recent right hip replacement on 02/15/2018 medications noted 6. Chronic pain, was on [place] prior to admission 8. Leg injury left leg, from type metal falling into the leg, recently finishing Keflex treatment completed, this point to be applied on remaining wound left leg 9. Exposure to poison bar present prior to admission, patient's to finish oral prednisone as directed
[2018-03-29] MEDS: predniSONE 20 MG TAB PO SCH (16:42)
[2018-03-29] MEDS: HYDROcodone/APAP 7.5-325MG 1 EACH TAB PO PRN (19:55)
[2018-03-30] MEDS: LOSARTAN 50 MG TAB PO SCH (07:47)
[2018-03-30] MEDS: predniSONE 20 MG TAB PO SCH (07:48)
[2018-03-30] MEDS ORDERED: IV FLUID CONTINUATION 1,000 ML IV ONE (08:21)
[2018-03-30] MEDS ORDERED: VERAPAMIL 2.5 MG/ML 2 ML AMP ONE (08:27)
[2018-03-30] MEDS ORDERED: LIDOCAINE 1% INJ 10MG/ML (20 ML MDV) ONE (08:28)
[2018-03-30] MEDS ORDERED: fentaNYL (PF) 50 MCG/ML 2 ML AMP ONE (08:28)
[2018-03-30] MEDS ORDERED: HEPARIN SODIUM 1,000 UN/ML (10ML VL) ONE (08:28)
[2018-03-30] MEDS ORDERED: fentaNYL (PF) 50 MCG/ML 2 ML AMP IV ONE (08:59)
[2018-03-30] MEDS ORDERED: ASPIRIN 325 MG TAB PO ONE (09:00)
[2018-03-30] MEDS ORDERED: LIDOCAINE 1% INJ 10MG/ML (20 ML MDV) SQ ONE (09:01)
[2018-03-30] MEDS: VERAPAMIL SYRINGE (5 MG/10 ML) INTRAARTER ONE ×2 (09:05→09:18)
[2018-03-30] MEDS ORDERED: BIVALIRUDIN BOLUS 250 MG/50 ML IV ONE (09:20)
[2018-03-30] MEDS ORDERED: BIVALIRUDIN 250 MG in SODIUM CHLORIDE 0.9% 35 ML IV ONE (09:20)
[2018-03-30] MEDS ORDERED: CLOPIDOGREL 75 MG TAB ONE (09:21)
[2018-03-30] MEDS ORDERED: CLOPIDOGREL 75 MG TAB PO ONE (09:22)
[2018-03-30] MEDS ORDERED: NITROGLYCERIN 1000MCG/10ML SYRINGE INTRACORON ONE (09:23)
[2018-03-30] MEDS ORDERED: IOPAMIDOL-370 125ML BTL INJ ONE (09:25)
[2018-03-30] MEDS: HEPARIN SODIUM,PORCINE 5,000 UNIT/ML 1 ML VIAL SQ SCH (09:43)
[2018-03-30] MEDS ORDERED: BIVALIRUDIN 250 MG in SODIUM CHLORIDE 0.9% 50 ML IV ONE (09:49)
[2018-03-30] MEDS ORDERED: ATROPINE SULFATE 0.1 MG/ML 10ML SYRINGE IV PRN (10:37)
[2018-03-30] MEDS ORDERED: ZOLPIDEM 5 MG TAB PO PRN (10:37)
[2018-03-30] MEDS ORDERED: NITROGLYCERIN SL TABS 0.4 MG TAB SUBLINGUAL PRN (10:37)
[2018-03-30] MEDS ORDERED: RX INFO: IV CONTRAST WAS GIVEN 1 EACH MISC MISCELLANE PRN (10:37)
[2018-03-30] MEDS ORDERED: MAG HYDROX/AL HYDROX/SIMETH 30 ML CUP PO PRN (10:37)
[2018-03-30] MEDS ORDERED: SODIUM CHLORIDE 0.9% 1,000 ML IV SCH (10:45)
--- NOTE | 2018-03-30 11:01 | CC ---
CARDIAC CATHETERIZATION REPORT Mr. Shafer is a 72-year-old male with known history of hypertension, hyperlipidemia, who presented with symptoms of chest discomfort. He underwent a myocardial perfusion imaging that showed evidence of inducible ischemia. In view of that, recommendation was made regarding cardiac catheterization. The procedure as well as the risks and the complications were discussed with the patient who is in full understanding and agreement. PROCEDURE: Patient was brought to labor commissioner in a fasting semi-sedated state after receiving fentanyl and Benadryl and achieving moderate conscious sedated state. Using Xylocaine anesthesia in the Seldinger technique, a 6-Khmer sheath was introduced in the right radial artery. Selective right and left coronary angiography performed using 5-Khmer 3.5 bend right and left Abhijit catheter. Multiple views of the coronary artery including hemiaxial views were obtained. Following that, the catheter was removed. Images were reviewed. FINDINGS: FLUOROSCOPY: There was severe calcification involving all the coronary arteries. LEFT MAIN: This is a large-sized vessel bifurcating in the left circumflex, left anterior descending artery. Left main coronary artery has no evidence of high-grade stenosis. LEFT ANTERIOR DESCENDING ARTERY: This is a large-sized vessel reaching towards the apex with a wraparound apex segment. The mid LAD has a plaque of about 40% to 50% The rest of the vessel has intimal disease without any evidence of high-grade stenosis. LEFT CIRCUMFLEX: This is a nondominant vessel giving rise to one obtuse marginal branch. The proximal left circumflex has tubular lesion of about 50%. The first obtuse marginal branch shortly after the takeoff has a 99% stenosis. The rest of the vessel has intimal disease without any evidence of high-grade stenosis. RIGHT CORONARY ARTERY: This is a large dominant vessel bifurcating PDA and posterolateral segment and branches. The right coronary artery has a plaque in the mid segment of about 40%. The rest of the vessel has no high-grade stenosis. LEFT VENTRICULOGRAM: Left ventriculogram is not performed. CONCLUSION: 1. Calcified coronary arteries. 2. Significant stenosis in the first obtuse marginal branch. 3. Mild to moderate disease in the left anterior descending artery and the right coronary artery. RECOMMENDATION: In view of finding anatomy, I recommend proceeding with angioplasty and stenting of the obtuse marginal branch. The procedure as well as the risks and the complications were discussed with the patient who is in full understanding and agreement. MMODL / IJN: [id number] /
--- NOTE | 2018-03-30 11:13 | PTCA ---
PERCUTANEOUSTRANS CORORONARY ANGIOGRAPHY Mr. Shafer is a 72-year-old male with known history of hypertension, hyperlipidemia, who presented with symptoms of chest discomfort, had an abnormal myocardial perfusion imaging, underwent cardiac catheterization, was found to have critical stenosis involving the obtuse marginal branch. In view of that, recommendation was made regarding angioplasty and stenting. The procedures, risks and complications were discussed with the patient who is in full understanding and agreement. PROCEDURE: A 6-Urdu FL 3.5 guiding catheter was introduced into the system. After cannulating the left main, a 0.014 balanced medium weight J-wire was advanced across the lesion and positioned distally. Subsequently, another wire 0.014 Whisper J-wire was advanced next to the first wire and positioned distally. Then attempt to advance a 2.5 x 12 mm Xience Alpine stent was unsuccessful because of the severe calcification and tortuosity. That stent was removed and an Heyburn Resolute 2.0 x 12 mm stent could not be advanced either. At that point, the stent was removed and a 2.0 x 8 mm Trek balloon was advanced and 2 inflations at the lesion at maximum of 10 atmospheres were done. Following that, the balloon was removed and the BMW J-wire was removed and a GuideLiner was advanced. Attempt to advance the Storm 12 mm stent was unsuccessful. That stent was removed and attempt to advance an 8 mm 2.0 Heyburn Resolute stent was unsuccessful as well. Those stents were removed. The guidewire was removed and another whisper J-wire was positioned next to the first one. Subsequently, attempt to advance a 8 mm Heyburn stent was unsuccessful. That stent was removed and a third Whisper J-wire was advanced with a Fine Cross catheter and exchanged to a Mailman. Following that, the Whisper J- wire was removed and attempt to advance the 8 mm Heyburn stent was unsuccessful as well. At that point, the stent and the Mailman was removed and a 2.25 x 12 mm Trek balloon was advanced and inflation up to 10 atmospheres were done. After the last inflation, after appropriate wait, the balloon and the guidewire were withdrawn back in the guiding catheter. Images were obtained and repeated. Those images reveal stable successful angioplasty. At that point, the guiding catheter, the balloon and the guidewire were removed. The sheath was removed. Hemostasis was obtained with deployment of a TR band. There was no immediate complication. Patient is returned to his room in stable condition. Of note, the patient received Angiomax per protocol as well as oral loading dose of clopidogrel. He had no chest discomfort or EKG changes with the inflations. RESULTS: Successful angioplasty of the first obtuse marginal branch with reduction of stenosis from 99% to less than 50% with inability to advance a stent because of that tortuosity and severe calcification. RECOMMENDATION: Patient will be continued on aspirin, Plavix and aggressive risk modification. Those findings and recommendation were discussed with the patient and his family who are in full understanding and agreement. Duration of the procedure is 130 minutes. MMODL / IJN: [id number] /
[2018-03-30 11:19] VITALS: RESP 20
--- NOTE | 2018-03-30 15:14 | P.PN ---
Subjective Progress Note Date: 03/30/18 This 72-year-old gentleman patient of Dr. Tigre Linton. He has underlying history of hypertension, hyperlipidemia, obstructive sleep apnea, sinus bradycardia, with recent right hip replacement on 02/15/2018 anterior approach at [facility] Dr. Cummings. He did well, complaining of chest pressure. Patient has never seen a family psychologist in the past, no known history of CAD. Chest pain occurred one week prior to admission, with pressure, off and on without any particular aggravation or palliative measures, it is midsternal, without any regurgitation, with symptoms of feeling like wavy sitting on his chest. Patient denies any dysphagia, no dysarthria, no likeness of dizziness or palpitation, patient comes to the emergency room for the above complaints. Patient's chest pain-free while in the hospital. While in the emergency room EKG showed sinus mechanism with incomplete right bundle branch block, no acute ST-T wave changes, chest x-ray shows no acute cardiopulmonary process, CTA of the chest failed to reveal any pulmonary emboli , has mild atherosclerotic vascular disease of the aorta, d-dimer 1.29, creatinine 0.7 troponins are negative 3, LDL of 121 03/30: Patient is status post heart catheterization with Dr. Burkett that revealed calcified coronary arteries, significant stenosis in the first obtuse marginal branch, mild to moderate disease in the left anterior descending artery and right coronary artery. Patient subsequently underwent angioplasty to the first obtuse marginal branch with inability to advance stent because of tortuosity and severe calcification. Patient will be monitored overnight and most likely discharge home tomorrow. Objective - Vital Signs Vital signs: Vital Signs Temp 98.2 F 03/30/18 08:00 Pulse 46 L 03/30/18 08:00 Resp 16 03/30/18 08:00 BP 157/84 03/30/18 08:00 Pulse Ox 98 03/30/18 08:00 Intake & Output 03/29/18 03/30/18 03/30/18 18:59 06:59 18:59 Intake Total 200 35 Balance 200 35 Weight 113.852 kg Intake: IV 35 Oral 200 Other: Voiding Method Toilet Toilet Toilet # Voids 2 1 1 - Exam General appearance: cooperative, no acute distress - EENT Eyes: anicteric sclerae, EOMI, PERRLA, dentition normal, normal appearance ENT: NA/AT, normal oropharynx - Neck Neck: no lymphadenopathy, normal ROM, no other, no rigidity, no stridor, no thyromegaly - Respiratory Respiratory: bilateral: CTA, negative: diminished, dullness - Cardiovascular Rhythm: regular Abnormal Heart Sounds: no systolic murmur, no diastolic murmur, no rub, no S3 Gallop, no S4 Gallop, no click, no other - Gastrointestinal General gastrointestinal: normal bowel sounds, soft - Integumentary Integumentary: decreased turgor, normal - Neurologic Neurologic: CNII-XII intact - Musculoskeletal Musculoskeletal: gait normal, strength equal bilaterally - Psychiatric Psychiatric: A&O x's 3, appropriate affect, intact judgment & insight - Labs CBC & Chem 7: 03/28/18 17:04 03/28/18 17:04 Assessment and Plan Plan: 1. Chest pain ruled out myocardial infarction, secondary to coronary artery disease status post PTCA with Dr. Burkett. Continue aspirin 81 mg daily, Lipitor 40 mg daily, Plavix 75 mg daily. Patient is not on beta isidoro due to bradycardia. 2. Abnormal stress test as performed during this current hospital stay, patient would undergo cardiac catheterization in the morning 03/30/2018 3. Hypertension on losartan 50 mg daily 4. 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 5. Recent right hip replacement on 02/15/2018 medications noted 6. Chronic pain, was on [place] prior to admission 8. Leg injury left leg, from type metal falling into the leg, recently finishing Keflex treatment completed, this point to be applied on remaining wound left leg 9. Exposure to poison bar present prior to admission, patient's to finish oral prednisone as directed Discharge plan: Return home Impression and plan of care have been directed as dictated by the signing physician. Ayanna Oneill nurse practitioner acting as scribe for signing physician.
[2018-03-30 15:16] VITALS: BMI 40.5
[2018-03-31 06:35] LABS: Anion Gap 7 mmol/L; Blood Urea Nitrogen 19 mg/dL (9-20); Calcium 9.4 mg/dL (8.4-10.2); Carbon Dioxide 26 mmol/L (22-30); Chloride 106 mmol/L (98-107); Glucose 101 mg/dL (74-99); Potassium 4.1 mmol/L (3.5-5.1); Sodium 139 mmol/L (137-145)
--- NOTE | 2018-03-31 08:29 | PN ---
PROGRESS NOTE Mr. Shafer is a 72-year-old male who presented with symptoms of chest discomfort, he had an abnormal myocardial perfusion imaging, underwent cardiac catheterization that revealed a severely calcified arteries with severe stenosis in the proximal first obtuse marginal branch. He underwent angioplasty of that vessel yesterday. There was inability to advance the stent because of the severe calcification. He is doing well this morning. He has no chest pain. His breathing has been stable. He denies any dizziness, palpitation. He denies any nausea. He is ambulating. He continues to be on aspirin once a day, Lipitor 40 mg daily, Plavix 75 mg daily, losartan 50 mg daily. PHYSICAL EXAMINATION: Blood pressure 134/60 with a heart rate in the 40s to 50s. LUNGS: Clear. HEART: Regular rate and rhythm, S1, S2. No S3 with a systolic murmur. ABDOMEN: Soft, nontender. EXTREMITIES: Trace to 1+ edema. Right radial pulse intact. LAB DATA: Revealed a BUN and creatinine 19 and 0.7, potassium 4.1. EKG revealed sinus bradycardia. IMPRESSION: 1. Status post angioplasty of the left circumflex obtuse marginal branch. 2. Calcified coronary arteries. 3. Hypertension. 4. Bradycardia, asymptomatic. 5. Hyperlipidemia. 6. Osteoarthritis. RECOMMENDATION: Patient will be discharged home today and followed in 1 week. MMODL / JALEESAN: [id number] /
[2018-03-31 08:41] VITALS: BP 141/63; PULSE 53; TEMP 97.5
--- NOTE | 2018-03-31 08:42 | P.DS ---
Providers Date of admission: 03/29/18 15:01 Expected date of discharge: 03/31/18 Attending physician: Francesca Dave Consults: 03/28/18 18:38 Consult Physician Urgent Consulting Provider: René Burkett Consult Reason/Comments: cp Do you want consulting provider notified?: Yes 03/30/18 10:38 Consult Physician Routine Consulting Provider: [facility] Consult Reason/Comments: Post Interventional patient Do you want consulting provider notified?: Already Contacted Primary care physician: Rg Linton [facility] Course: This 72-year-old gentleman patient of Dr. Tigre Linton. He has underlying history of hypertension, hyperlipidemia, obstructive sleep apnea, sinus bradycardia, with recent right hip replacement on 02/15/2018 anterior approach at [facility] Dr. Cummings. He did well, complaining of chest pressure. Patient has never seen a industrial education teacher in the past, no known history of CAD. Chest pain occurred one week prior to admission, with pressure, off and on without any particular aggravation or palliative measures, it is midsternal, without any regurgitation, with symptoms of feeling like wavy sitting on his chest. Patient denies any dysphagia, no dysarthria, no likeness of dizziness or palpitation, patient comes to the emergency room for the above complaints. Patient's chest pain-free while in the hospital. While in the emergency room EKG showed sinus mechanism with incomplete right bundle branch block, no acute ST-T wave changes, chest x-ray shows no acute cardiopulmonary process, CTA of the chest failed to reveal any pulmonary emboli , has mild atherosclerotic vascular disease of the aorta, d-dimer 1.29, creatinine 0.7 troponins are negative 3, LDL of 121 03/30: Patient is status post heart catheterization with Dr. Burkett that revealed calcified coronary arteries, significant stenosis in the first obtuse marginal branch, mild to moderate disease in the left anterior descending artery and right coronary artery. Patient subsequently underwent angioplasty to the first obtuse marginal branch with inability to advance stent because of tortuosity and severe calcification. Patient will be monitored overnight and most likely discharge home tomorrow. 03/31: She has had no further chest pain, shortness of breath, lightheadedness or dizziness. He is able to ambulate without symptoms. Patient has been cleared for discharge by Dr. Burkett. Discharge diagnoses: 1. Chest pain ruled out myocardial infarction, secondary to coronary artery disease status post PTCA with Dr. Burkett. 2. Abnormal stress test 3. Hypertension 4. Hyperlipidemia 5. Recent right hip replacement on 02/15/2018 6. Chronic pain 8. Leg injury left leg, from metal falling into the leg, recently finishing Keflex 9. Exposure to poison bar present prior to admission, Discharge plan: Return home Impression and plan of care have been directed as dictated by the signing physician. Ayanna Oneill nurse practitioner acting as scribe for signing physician. Plan - Discharge Summary Discharge Rx Participant: Yes New Discharge Prescriptions: New Aspirin 81 mg PO DAILY chew Clopidogrel [Plavix] 75 mg PO DAILY #30 tab Lphlpgkg-Mkvynyubgb-Rcja Oint [Triple Antibiotic Ointment] 1 applic TOPICAL BID PRN applic PRN Reason: Skin Irritation Continue predniSONE 40 mg PO DAILY Multivitamins, Thera [Multivitamin (formulary)] 1 tab PO DAILY Losartan [Cozaar] 50 mg PO DAILY Vit C/E/Zn/Coppr/Lutein/Zeaxan [Preservision Areds 2 Softgel] 1 cap PO BID Simvastatin 40 mg PO DAILY Calcium Carbonate [Calcium] 600 mg PO DAILY Hydrocodone/Acetaminophen [[place] 7.5-325] 1 tab PO Q6H PRN PRN Reason: Pain Discontinued Meloxicam [Mobic] 7.5 mg PO BID Discharge Medication List Calcium Carbonate [Calcium] 600 mg PO DAILY 03/28/18 [History] Hydrocodone/Acetaminophen [[place] 7.5-325] 1 tab PO Q6H PRN 03/28/18 [History] Losartan [Cozaar] 50 mg PO DAILY 03/28/18 [History] Multivitamins, Thera [Multivitamin (formulary)] 1 tab PO DAILY 03/28/18 [History ] Simvastatin 40 mg PO DAILY 03/28/18 [History] Vit C/E/Zn/Coppr/Lutein/Zeaxan [Preservision Areds 2 Softgel] 1 cap PO BID 03/28 [History] predniSONE 40 mg PO DAILY 03/28/18 [History] Aspirin 81 mg PO DAILY chew 03/31/18 [Rx] Clopidogrel [Plavix] 75 mg PO DAILY #30 tab 03/31/18 [Rx] Qjeabnoz-Vbleowxjmh-Qdvg Oint [Triple Antibiotic Ointment] 1 applic TOPICAL BID PRN applic 03/31/18 [Rx] Follow up Appointment(s)/Referral(s): René Burkett MD [STAFF PHYSICIAN] - 1 Week Rg Linton MD [Primary Care Provider] - 1 Week Patient Instructions/Handouts: *Surgery [facility] - After Heart Catheterization - [employer] Instructions, Left Heart Catheterization (DC) Discharge Disposition: HOME SELF-CARE
[2018-03-31] MEDS: predniSONE 20 MG TAB PO SCH (08:45)
[2018-03-31] MEDS: LOSARTAN 50 MG TAB PO SCH (08:45)
[2018-03-31] MEDS ORDERED: ATORVASTATIN 40 MG TAB PO SCH (09:00)
[2018-03-31] MEDS ORDERED: CLOPIDOGREL 75 MG TAB PO SCH (09:00)
[2018-03-31] MEDS ORDERED: ASPIRIN 81 MG PO SCH (09:00)
== END 2018-03-31 10:05 | disposition home or self-care (01) | DRG 251 ==
LOC: EC 16:33 → 3OBS 18:38 → OBSVTOIN 03-29 15:01 → 6SEL 03-30 10:34
PROVIDERS: ADMIT Family Medicine; ATTEND Family Medicine
PROC: 02703ZZ Dilation of Coronary Artery, One Artery, Percutaneous Approach (ICD-10-PCS; principal; 2018-03-30 09:00)
PROC: B211YZZ Fluoroscopy of Multiple Coronary Arteries using Other Contrast (ICD-10-PCS; 2018-03-30 09:00)
DX: I25.10 Atherosclerotic heart disease of native coronary artery without angina pectoris (principal); E11.9 Type 2 diabetes mellitus without complications; I45.10 Unspecified right bundle-branch block; I70.0 Atherosclerosis of aorta; I25.84 Coronary atherosclerosis due to calcified coronary lesion; E78.5 Hyperlipidemia, unspecified; G47.33 Obstructive sleep apnea (adult) (pediatric); M19.91 Primary osteoarthritis, unspecified site; I10 Essential (primary) hypertension; L23.7 Allergic contact dermatitis due to plants, except food; G89.29 Other chronic pain; H35.30 Unspecified macular degeneration; Z79.1 Long term (current) use of non-steroidal anti-inflammatories (NSAID); Z79.899 Other long term (current) drug therapy; Z87.891 Personal history of nicotine dependence; Z86.19 Personal history of other infectious and parasitic diseases; Z98.84 Bariatric surgery status; Z96.651 Presence of right artificial knee joint; Z96.641 Presence of right artificial hip joint; Z96.612 Presence of left artificial shoulder joint; Z98.42 Cataract extraction status, left eye; Z98.41 Cataract extraction status, right eye; Z88.8 Allergy status to other drugs, medicaments and biological substances; Z82.0 Family history of epilepsy and other diseases of the nervous system; Z82.49 Family history of ischemic heart disease and other diseases of the circulatory system; Z83.3 Family history of diabetes mellitus; Z80.41 Family history of malignant neoplasm of ovary
CPT/HCPCS: 36415; 71046; 71275; 78452; 80048; 80053; 80061; 82150; 82550; 82553; 83690; 83735; 84484; 85025; 85347; 85379; 85610; 85730; 92920; 93005; 93017; 93306; 93454; 99285

== ENCOUNTER 2019-02-14 12:40 | Emergency (ER) | payer MEDICARE, OTHER ==
[2019-02-14 13:02] VITALS: TEMP 97.9
[2019-02-14] MEDS ORDERED: LIDOCAINE 1% INJ 10MG/ML (20 ML MDV) SQ ONE (13:34)
--- NOTE | 2019-02-14 14:26 | ED ---
Wound/Laceration HPI - General Chief Complaint: Wound/Laceration Stated Complaint: leg lac Time Seen by Provider: 02/14/19 13:04 Source: patient Mode of arrival: ambulatory Limitations: no limitations - History of Present Illness Initial Comments: 73-year-old male on anticoagulation therapy presented for laceration of the right lower leg. Patient states he brushed against a stick while doing yard work. Patient states he sustained a laceration. Patient thought he didn't need sutures however his did. He states the bleeding was very persistent in the presents emergency department for further evaluation. Patient denies any numbness tingling or loss sensation. Patient denies any pain in proportion. He states that it was a clean cut denies any evidence of foreign body. He states that they cleansed it and applied a bandage prior to the presentation. Upon arrival patient's bleeding controlled. Patient appears well signs of acute distress . Patient states his tetanus is up-to-date within last 5 years. Remaining review of system negative patient denies history of diabetes. - Related Data Home Medications Medication Instructions Recorded Confirmed Calcium Carbonate [Calcium] 600 mg PO DAILY 03/28/18 02/14/19 Multivitamins, Thera [Multivitamin 1 tab PO DAILY 03/28/18 02/14/19 (formulary)] Vit C/E/Zn/Coppr/Lutein/Zeaxan 1 cap PO BID 03/28/18 02/14/19 [Preservision Areds 2 Softgel] Cetirizine HCl [Zyrtec] 10 mg PO DAILY 02/14/19 02/14/19 Doxycycline Monohydrate [Monodox] 100 mg PO DAILY 02/14/19 02/14/19 Losartan-Hctz 50-12.5 mg [Hyzaar 1 tab PO DAILY 02/14/19 02/14/19 50-12.5] Meloxicam [Mobic] 15 mg PO DAILY 02/14/19 02/14/19 Rosuvastatin Calcium [Crestor] 40 mg PO DAILY 02/14/19 02/14/19 Triamcinolone 0.1% Cream [Kenalog 1 applicatio TOPICAL BID 02/14/19 02/14/19 0.1% Cream] metroNIDAZOLE [metroNIDAZOLE 1 applic TOPICAL DAILY 02/14/19 02/14/19 Lotion] Previous Rx's Medication Instructions Recorded Aspirin 81 mg PO DAILY chew 03/31/18 Clopidogrel [Plavix] 75 mg PO DAILY #30 tab 03/31/18 Cephalexin [Keflex] 500 mg PO Q8HR 7 Days #21 cap 02/14/19 Allergies Allergy/AdvReac Type Severity Reaction Status Date / Time atorvastatin AdvReac Unknown Verified 02/14/19 13:17 Review of Systems ROS Statement: Those systems with pertinent positive or pertinent negative responses have been documented in the HPI. ROS Other: All systems not noted in ROS Statement are negative. Past Medical History Past Medical History: Eye Disorder, Hyperlipidemia, Hypertension, Osteoarthritis (OA), Sleep Apnea/CPAP/BIPAP Additional Past Medical History / Comment(s): sh[place] 2002, in past was treated for diabetres but after bariatric sx lost 100# no longer needed insuling and only checks bs occ. no longer needs cpap machine since wt loss. ddd pt stated he had his back stretched by jayson wilson at [employer] in [place]. has the start of macular degeneration-has'nt progressed inpast 3 years. has abrasion lt lower leg. History of Any Multi-Drug Resistant Organisms: None Reported Past Surgical History: Bariatric Surgery, Orthopedic Surgery Additional Past Surgical History / Comment(s): bilcarpel tunnel release,gastric sleeve, alice cataracts, rt foot reconstruction d/t being flat footed. lt knee replacment, rt shoulder replacment, rt hip replacement, lt shoulder rebuilt Past Anesthesia/Blood Transfusion Reactions: No Reported Reaction Past Psychological History: No Psychological Hx Reported Smoking Status: Former smoker Past Alcohol Use History: None Reported Past Drug Use History: None Reported - Past Family History Mother Family Medical History: Dementia Additional Family Medical History / Comment(s): at age 94 -dementia Father Family Medical History: Diabetes Mellitus, Myocardial Infarction (VT) Additional Family Medical History / Comment(s): at age 69 from [place]. Brother(s) Family Medical History: Diabetes Mellitus Sister(s) Family Medical History: Cancer (Ovarian) General Exam - General Exam Comments Initial Comments: General: The patient is awake and alert, in no distress, and does not appear acutely ill. Eye: Pupils are equal, round and reactive to light, extra-ocular movements are intact. No nystagmus. There is normal conjunctiva bilaterally. No signs of icterus. Cardiovascular: There is a regular rate and rhythm. No murmur, rub or gallop is appreciated. Respiratory: Lungs are clear to auscultation, respirations are non-labored, breath sounds are equal. No wheezes, stridor, rales, or rhonchi. Musculoskeletal: Normal ROM, no tenderness. Strength 5/5. Sensation intact. Pulses equal bilaterally 2+. Neurological: A&O x 3. CN II-XII intact, There are no obvious motor or sensory deficits. Coordination appears grossly intact. Speech is normal. Skin: Skin is warm and dry and no rashes. 4cm laceration of the right lateral aspect of lower leg. No exposure of underlying structures. No evidence of FB. Bleeding controlled, Psychiatric: Cooperative, appropriate mood & affect, normal judgment. Limitations: no limitations Course Vital Signs 02/14/19 02/14/19 13:00 14:37 Temperature 97.9 F Pulse Rate 52 L 72 Respiratory 16 18 Rate Blood Pressure 130/80 138/80 O2 Sat by Pulse 96 100 Oximetry Procedures - Laceration Laceration #1 Consent Obtained: verbal consent Indication: laceration Site: lower extremity Size (cm): 4 Description: linear Depth: simple, single layer Anesthetic Used: lidocaine 1% Anesthesia Technique: local infiltration Amount (mls): 2 Pre-repair: wound explored, irrigated extensively, deep structures intact Type of Sutures: nylon Size of Sutures: 4-0 Number of Sutures: 8 Patient Tolerated Procedure: well, no complications Medical Decision Making - Medical Decision Making After extensive irrigation cleansing iodine excoriation of the wound revealed no evidence of foreign body or deeper injury. Wound was closed. Patient had a procedure well. Patient has no other complaints. Return parameters in son's infections were discussed at length. Patient was given prophylactic antibiotics to prevent infection. Patient is discharged appearing well. Disposition Clinical Impression: Laceration of right lower leg Disposition: HOME SELF-CARE Condition: Good Instructions (If sedation given, give patient instructions): Care For Your Stitches (ED), Laceration (ED) Additional Instructions: Please use medication as discussed. Please follow-up for removal in 7-10 days. Please return to emergency room if the symptoms increase or worsen or for any other concerns, redness, drainage, increasing pain. Prescriptions: Cephalexin [Keflex] 500 mg PO Q8HR 7 Days #21 cap Is patient prescribed a controlled substance at d/c from ED?: No Referrals: Rg Linton MD [Primary Care Provider] - 1-2 days Time of Disposition: 14:24
[2019-02-14 14:38] VITALS: BP 138/80; PULSE 72; RESP 18
== END 2019-02-14 14:36 | disposition home or self-care (01) ==
LOC: EC 12:40
DX: S81.811A Laceration without foreign body, right lower leg, initial encounter (principal); E78.5 Hyperlipidemia, unspecified; I10 Essential (primary) hypertension; M19.90 Unspecified osteoarthritis, unspecified site; Z87.891 Personal history of nicotine dependence; Z88.8 Allergy status to other drugs, medicaments and biological substances; Z79.01 Long term (current) use of anticoagulants; Z79.1 Long term (current) use of non-steroidal anti-inflammatories (NSAID); Z79.52 Long term (current) use of systemic steroids; Z79.899 Other long term (current) drug therapy; Z96.641 Presence of right artificial hip joint; Z96.652 Presence of left artificial knee joint; Z96.611 Presence of right artificial shoulder joint; Z96.612 Presence of left artificial shoulder joint; Z98.890 Other specified postprocedural states; W26.8XXA Contact with other sharp object(s), not elsewhere classified, initial encounter; Y93.H2 Activity, gardening and landscaping; Y92.096 Garden or yard of other non-institutional residence as the place of occurrence of the external cause
CPT/HCPCS: 99282; 12002; J2001

== ENCOUNTER → 2021-12-03 | Outpatient (CLI) | payer MEDICARE, OTHER ==
--- NOTE | 2021-12-03 15:11 | US ---
LOWER EXTREMITY VENOUS INSUFFICIENCY CLINICAL HISTORY: I87.313 CHR VENOUS HYPERTENSION. SIDE PERFORMED: Bilateral 1) Color flow is present and patency is documented in the following vessels. No DVT or SVT is noted . Common Femoral Vein Deep Femoral Vein Femoral Vein Popliteal Vein Proximal Calf Veins Greater Saph Vein Upper Small Saph Vein 2) There is venous reflux noted at the following venous levels: none IMPRESSION: No ultrasound evidence for acute deep or superficial venous thrombosis in the bilateral l ower extremities.
--- NOTE | 2021-12-03 15:14 | US ---
EXAMINATION TYPE: US arterial LE single level DATE OF EXAM: 12/03/2021 2:53 PM CLINICAL HISTORY: I87.313 CHR VENOUS HYPERTENSION. History of hypertension and hyperlipidemia. Bilate ral lower extremity nonhealing wounds. Doppler Waveforms: Right: Biphasic to monophasic Left: Biphasic to monophasic Pulse Volume Recording: Flattened Pressure Gradients: Ankle-Brachial Indices: Right: CNO Left: CNO Toe Brachial Indices: Right: 0.49 Left: 0.71 Loss of phasicity could be technical. Other etiologies not excluded. Diminished TBI in the left noted . IMPRESSION: Abnormal study. Follow-up advised with vascular surgical consultation to further evaluat e
== END | disposition home or self-care (01) ==
LOC: RADUSWWP 12:50
PROVIDERS: ATTEND Family Medicine
DX: I10 Essential (primary) hypertension (principal); E78.5 Hyperlipidemia, unspecified; L97.529 Non-pressure chronic ulcer of other part of left foot with unspecified severity; L97.519 Non-pressure chronic ulcer of other part of right foot with unspecified severity
CPT/HCPCS: 93922; 93970

== ENCOUNTER 2023-10-01 12:01 | Inpatient (IN) | payer MEDICARE, OTHER ==
--- NOTE | 2023-10-01 12:44 | ED ---
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 He states he had this last night for about an hour he is short of breath with it no nausea vomiting fevers chills or sweats. He states that this morning about 2 hours prior to arrival he had 6-7/10 pain similar to the previous pain which lasted for perhaps an hour he still states its there but about 5/10 in severity he was brought in by his family member. He did take 81 mg of aspirin this morning. He denies any worsening of the condition with exertion and nothing makes it better. MD Complaint: chest pain - Related Data Home Medications Medication Instructions Recorded Confirmed Calcium Carbonate [Calcium] 600 mg PO DAILY 03/28/18 02/14/19 Multivitamins, Thera [Multivitamin 1 tab PO DAILY 03/28/18 02/14/19 (formulary)] Vit C/E/Zn/Coppr/Lutein/Zeaxan 1 cap PO BID 03/28/18 02/14/19 [Preservision Areds 2 Softgel] Cetirizine HCl [Zyrtec] 10 mg PO DAILY 02/14/19 02/14/19 Doxycycline Monohydrate [Monodox] 100 mg PO DAILY 02/14/19 02/14/19 Losartan-Hctz 50-12.5 mg [Hyzaar 1 tab PO DAILY 02/14/19 02/14/19 50-12.5] Meloxicam [Mobic] 15 mg PO DAILY 02/14/19 02/14/19 Rosuvastatin Calcium [Crestor] 40 mg PO DAILY 02/14/19 02/14/19 Triamcinolone 0.1% Cream [Kenalog 1 applicatio TOPICAL BID 02/14/19 02/14/19 0.1% Cream] metroNIDAZOLE [metroNIDAZOLE 1 applic TOPICAL DAILY 02/14/19 02/14/19 Lotion] Previous Rx's Medication Instructions Recorded Aspirin 81 mg PO DAILY chew 03/31/18 Clopidogrel [Plavix] 75 mg PO DAILY #30 tab 03/31/18 Cephalexin [Keflex] 500 mg PO Q8HR 7 Days #21 cap 02/14/19 Cephalexin [Keflex] 500 mg PO Q6HR #20 cap 02/26/19 Allergies Allergy/AdvReac Type Severity Reaction Status Date / Time atorvastatin AdvReac Unknown Verified 02/14/19 13:17 Review of Systems ROS Statement: Those systems with pertinent positive or pertinent negative responses have been documented in the HPI. ROS Other: All systems not noted in ROS Statement are negative. Past Medical History Past Medical History: Coronary Artery Disease (CAD), Diabetes Mellitus, Eye Disorder, Hyperlipidemia, Hypertension, Osteoarthritis (OA), Sleep Apnea/CPAP/BIPAP Additional Past Medical History / Comment(s): tammie 2002, in past was treated for diabetres but after bariatric sx lost 100# no longer needed insuling and only checks bs occ. no longer needs cpap machine since wt loss. ddd pt stated he had his back stretched by jayson wilson at [facility] in [place]. has the start of macular degeneration-has'nt progressed inpast 3 years. has abrasion lt lower leg. History of Any Multi-Drug Resistant Organisms: None Reported Past Surgical History: Bariatric Surgery, Orthopedic Surgery Additional Past Surgical History / Comment(s): bilcarpel tunnel release,gastric sleeve, alice cataracts, rt foot reconstruction d/t being flat footed. lt knee replacment, rt shoulder replacment, rt hip replacement, lt shoulder rebuilt Past Anesthesia/Blood Transfusion Reactions: No Reported Reaction Past Psychological History: No Psychological Hx Reported Past Alcohol Use History: None Reported Past Drug Use History: None Reported - Past Family History Mother Family Medical History: Dementia Additional Family Medical History / Comment(s): at age 94 -dementia Father Family Medical History: Diabetes Mellitus, Myocardial Infarction ([place]) Additional Family Medical History / Comment(s): [place] 69 [place] Brother(s) Family Medical History: Diabetes Mellitus Sister(s) Family Medical History: Cancer (Ovarian) General Exam - General Exam Comments Initial Comments: This is a well-developed well-nourished awake alert oriented x 4 male Limitations: no limitations General appearance: alert, in no apparent distress Head exam: Present: atraumatic, normocephalic, normal inspection Eye exam: Present: normal appearance, PERRL, EOMI. Absent: scleral icterus, conjunctival injection, periorbital swelling ENT exam: Present: normal exam, mucous membranes moist Neck exam: Present: normal inspection, full ROM, other (No stridor JVD or bruits). Absent: tenderness, meningismus, lymphadenopathy Respiratory exam: Present: normal lung sounds bilaterally. Absent: respiratory distress, wheezes, rales, rhonchi, stridor Cardiovascular Exam: Present: regular rate, bradycardia, normal heart sounds. Absent: systolic murmur, diastolic murmur, rubs, gallop, clicks GI/Abdominal exam: Present: soft, normal bowel sounds, other (Obese abdomen no tenderness to palpation no bruits no pulsatile masses.). Absent: distended, tenderness, guarding, rebound, rigid Rectal exam: Present: deferred Extremities exam: Present: full ROM, normal capillary refill, other (Bilateral lower extremity stasis changes the patient does have dressings applied.). Absent: tenderness, pedal edema, joint swelling, calf tenderness Back exam: Present: normal inspection Neurological exam: Present: alert, oriented X3, CN II-XII intact Psychiatric exam: Present: normal affect, normal mood Skin exam: Present: warm, dry, intact, other (Patient's changes as noted). Absent: rash Course Vital Signs 10/01/23 10/01/23 10/01/23 12:05 13:39 14:00 Temperature 98.3 F 97.5 F L Pulse Rate 50 L 61 67 Respiratory 20 18 17 Rate Blood Pressure 164/84 126/82 138/77 O2 Sat by Pulse 98 95 98 Oximetry 10/01/23 15:36 Temperature 98.2 F Pulse Rate 64 Respiratory 18 Rate Blood Pressure 124/76 O2 Sat by Pulse 94 L Oximetry - Reevaluation(s) Reevaluation #1: 10/01/23 16:25 Patient has had intermittent chest pains during his stay he is on heparin Moran given aspirin and is on nitroglycerin paste 1 inch. Reevaluation #2: 10/01/23 16:31 The patient's attending physician is Rg Linton not Lalo Linton this is confirmed by discussion with patient. Chest Pain MDM - MDM I did discuss the findings with the patient and multiple family members the patient CT was negative for evidence of pulmonary embolism. The presentation appears to be consistent with ACS/unstable angina acute exacerbation of his known history. He will be admitted with cardiology consultation I did discuss the case with Dr. Mina covering Dr. Rg Linton. Was pt. sent in by a medical professional or institution (, [facility], SIGNALLING AND COMMUNICATIONS ENGINEER, urgent care, hospital, or senior care...) When possible be specific @ -No Did you speak to anyone other than the patient for history (EMS, parent, family, police, friend...)? What history was obtained from this source @ -Family members Did you review nursing and triage notes (agree or disagree)? Why? @ -I reviewed and agree with nursing and triage notes Were old charts reviewed (outside hosp., previous admission, EMS record, old EKG, old radiological studies, urgent care reports/EKG's, senior care records)? Report findings @ -2018 old charts were reviewed Differential Diagnosis (chest pain, altered mental status, abdominal pain women, abdominal pain men, vaginal bleeding, weakness, fever, dyspnea, syncope, headache, dizziness, GI bleed, back pain, seizure, CVA, palpatations, mental health, musculoskeletal)? @ -Chest pain, pulmonary embolism EKG interpreted by me (3pts min.). @ -As above EKG interpreted by me sinus bradycardia with first-degree AV block and frequent PVCs rate 56 ND interval 223 QRS duration 100 QT/QTc 350/443 evidence of incomplete right bundle branch block. This was compared with an EKG dated March 28, 2018 showing similar morphology X-rays interpreted by me (1pt min.). @ -Chest x-ray interpreted by me no evidence of acute process CT interpreted by me (1pt min.). @ -CAT scan of the chest with angiography interpreted by me no evidence of pulmonary embolism U/S interpreted by me (1pt. min.). @ -None done What testing was considered but not performed or refused? (CT, X-rays, U/S, labs)? Why? @ -None What meds were considered but not given or refused? Why? @ -None Did you discuss the management of the patient with other professionals (professionals i.e. , [facility], SIGNALLING AND COMMUNICATIONS ENGINEER, lab, RT, psych nurse, social media project manager, fruit sorter, t eacher, security flex officer, community case manager)? Give summary @ -Dr. Mina Was smoking cessation discussed for >3mins.? @ -No Was critical care preformed (if so, how long)? @ -35 minutes Were there social determinants of health that impacted care today? How? (Homelessness, low income, unemployed, alcoholism, drug addiction, transportation, low edu. Level, literacy, decrease access to med. care, senior living, rehab)? @ -No Was there de-escalation of care discussed even if they declined (Discuss DNR or withdrawal of care, Hospice)? DNR status @ -No What co-morbidities impacted this encounter? (DM, HTN, Smoking, COPD, CAD, Cancer, CVA, ARF, Chemo, Hep., AIDS, mental health diagnosis, sleep apnea, morbid obesity)? @ -Coronary artery disease, diabetes, hyperlipidemia, hypertension, history of obtuse marginal vessel disease Was patient admitted / discharged? Hospital course, mention meds given and route, prescriptions, significant lab abnormalities, going to OR and other pertinent info. @ -Hospital course patient was admitted for inpatient evaluation and treatment cardiology consultation Undiagnosed new problem with uncertain prognosis? @ -No Drug Therapy requiring intensive monitoring for toxicity (Heparin, Nitro, Insulin, Cardizem)? @ -Heparin, nitroglycerin paste Were any procedures done? @ -No Diagnosis/symptom? @ -Acute coronary syndrome, unstable angina, chest pain Acute, or Chronic, or Acute on Chronic? @ -Acute Uncomplicated (without systemic symptoms) or Complicated (systemic symptoms)? @ -Default Side effects of treatment? @ -No Exacerbation, Progression, or Severe Exacerbation? @ -No Poses a threat to life or bodily function? How? (Chest pain, [place], [place], pneumonia, PE, COPD, DKA, ARF, appy, cholecystitis, CVA, Diverticulitis, Homicidal, Suicidal, threat to staff... and all critical care pts) @ -Potential, ACS, unstable angina, chest pain Critical Care Time Critical Care Time: Yes Total Critical Care Time: 35 Disposition Clinical Impression: Acute coronary syndrome, Chest pain, Unstable angina pectoris Disposition: ADMITTED IP TO THIS [facility] Condition: Fair Referrals: Lalo Linton MD [STAFF PHYSICIAN] - 1-2 days Decision Date: 10/01/23 Decision Time: 16:31
[2023-10-01 12:52] LABS: Basophils % (A) 1 %; Eosinophils # (A) 0.1 k/uL (0-0.7); Eosinophils % (A) 2 %; HGB 12.9 gm/dL (13.0-17.5); Lymphocytes # (A) 0.8 k/uL (1.0-4.8); Lymphocytes % (A) 24 %; MCH 30.5 pg (25.0-35.0); MCHC 32.1 g/dL (31.0-37.0); Mean Platelet Volume 8.1; Monocytes # (A) 0.3 k/uL (0-1.0); Monocytes % (A) 9 %; Neutrophils # (A) 2.1 k/uL (1.3-7.7); Neutrophils % (A) 59 %; Platelet Count 143 k/uL (150-450); RBC 4.21 m/uL (4.30-5.90); RDW 14.8 % (11.5-15.5); WBC 3.5 k/uL (3.8-10.6)
[2023-10-01] MEDS: ASPIRIN 81 MG PO STA (12:59)
[2023-10-01] MEDS: NITROGLYCERIN OINT 1 INCH/GM PACKET TOPICAL STA (12:59)
[2023-10-01 13:10] LABS: ALT 21 U/L (4-49); AST 40 U/L (17-59); African American GFR (CKD) >90 (>60 ml/min/1.73 sqM); Albumin 4.2 g/dL (3.5-5.0); Alkaline Phosphatase 74 U/L (38-126); Anion Gap 11 mmol/L; Blood Urea Nitrogen 28 mg/dL (9-20); Calcium 9.1 mg/dL (8.4-10.2); Carbon Dioxide 22 mmol/L (22-30); Chloride 107 mmol/L (98-107); Glucose 107 mg/dL (74-99); Lipase 144 U/L (23-300); Non-African American GFR(CKD) 79 (>60 ml/min/1.73 sqM); Potassium 4.4 mmol/L (3.5-5.1); Sodium 140 mmol/L (137-145); Total Bilirubin 0.7 mg/dL (0.2-1.3); Total Protein 7.4 g/dL (6.3-8.2)
[2023-10-01] MEDS: HEPARIN SODIUM 1,000 UN/ML (10ML VL) IV ONE (13:10)
[2023-10-01] MEDS: HEPARIN SOD,PORK IN 0.45% NACL 25,000 UNIT in 0.45% NACL 1 250ML.BAG IV SCH (13:11)
[2023-10-01 13:18] LABS: NT-Pro-B-Type Natriuretic Pept 402 pg/mL
[2023-10-01 13:26] LABS: Prothrombin Time 11.1 sec (10.0-12.5)
--- NOTE | 2023-10-01 13:39 | XR ---
EXAMINATION TYPE: XR chest 2V DATE OF EXAM: 10/01/2023 COMPARISON: Chest x-ray and CT chest March 28, 2018 HISTORY: Substernal chest pain with exertion TECHNIQUE: Frontal and lateral views of the chest are obtained. FINDINGS: There is no focal air space opacity, pleural effusion, or pneumothorax seen. The cardiac silhouette size is upper limits of normal with atherosclerotic thoracic aorta redemonstrated. Bilater al hilar prominence suggesting underlying pulmonary artery hypertension is redemonstrated. Surgical c hanges right shoulder is redemonstrated. IMPRESSION: No acute process. No significant change from prior studies.
--- NOTE | 2023-10-01 15:14 | CT ---
EXAMINATION TYPE: CT angio chest CT DLP: 1141.6 mGycm, Automated exposure control for dose reduction was used. DATE OF EXAM: 10/01/2023 2:57 PM COMPARISON: Chest radiograph from same day. 03/20/2018 CLINICAL INDICATION:Male, 77 years old with history of PE suspected; sob TECHNIQUE/CONTRAST: CTA scan of the thorax is performed with IV Contrast, patient injected with 100 ml mL of Isovue 300, MIP images are created and reviewed these are created on a separate workstation.. FINDINGS: Pulmonary Artery: There is no evidence for a filling defect within the pulmonary vasculature to sugge st acute pulmonary embolism. The pulmonary artery is dilated up to 47 mm. Lungs/Pleura: No evidence of focal consolidation, pleural effusion or pneumothorax. Airway: Large airways are patent. Heart: The heart is moderately enlarged for size. Vasculature: No evidence of aortic aneurysm. Mediastinum: No gross evidence of adenopathy. Musculoskeletal: Mild degenerative disc disease changes are present throughout the thoracolumbar spin e. Right shoulder arthroplasty changes hardware appears intact. Soft Tissues: Unremarkable. Lower neck: No significant findings. Upper Abdomen: Postsurgical changes to the gastric lumen. IMPRESSION: 1. No evidence of pulmonary embolism. 2. Cardiomegaly with pulmonary hypertension. Correlate with serum BNP.
[2023-10-01] MEDS ORDERED: NITROGLYCERIN SL TABS 0.4 MG TAB SUBLINGUAL PRN (16:32)
[2023-10-01] MEDS: SODIUM CHLORIDE 0.9% 1,000 ML IV SCH (18:03)
[2023-10-01] MEDS: NITROGLYCERIN OINT 1 INCH/GM PACKET TOPICAL SCH (19:27)
--- NOTE | 2023-10-01 20:05 | P.HPIM ---
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 He states he had this last night for about an hour he is short of breath with it no nausea vomiting fevers chills or sweats. He states that this morning about 2 hours prior to arrival he had 6-7/10 pain similar to the previous pain which lasted for perhaps an hour he still states its there but about 5/10 in severity he was brought in by his family member. He did take 81 mg of aspirin this morning. He denies any worsening of the condition with exertion and nothing makes it better. Blood work completed in ED reveals WBC of 3.5, hemoglobin of 12.9 and platelet count of 143, D-dimer of 1.16, sodium 140, potassium 4.4, BUNs/creatinine of 28/0.92, troponin of less than 0.012, BNP of 402. EKG is negative for any acute changes CT of the chest completed with PE protocol is negative for PE Review of Systems REVIEW OF SYSTEMS: CONSTITUTIONAL: No fever, no malaise, no fatigue. HEENT: No recent visual problems or hearing problems. Denied any sore throat. CARDIOVASCULAR: No chest pain, orthopnea, PND, no palpitations, no syncope. PULMONARY: No shortness of breath, no cough, no hemoptysis. GASTROINTESTINAL: No diarrhea, no nausea, no vomiting, no abdominal pain. NEUROLOGICAL: No headaches, no weakness, no numbness. HEMATOLOGICAL: Denies any bleeding or petechiae. GENITOURINARY: Denies any burning micturition, frequency, or urgency. MUSCULOSKELETAL/RHEUMATOLOGICAL: Denies any joint pain, swelling, or any muscle pain. ENDOCRINE: Denies any polyuria or polydipsia. The rest of the 14-point review of systems is negative. Past Medical History Past Medical History: Coronary Artery Disease (CAD), Diabetes Mellitus, Eye Disorder, Hyperlipidemia, Hypertension, Osteoarthritis (OA), Sleep Apnea/CPAP/BIPAP Additional Past Medical History / Comment(s): tammie 2002, in past was treated for diabetres but after bariatric sx lost 100# no longer needed insuling and only checks bs occ. no longer needs cpap machine since wt loss. ddd pt stated he had his back stretched by jayson wilson at [facility] in [place]. has the start of macular degeneration-has'nt progressed inpast 3 years. has abrasion lt lower leg. History of Any Multi-Drug Resistant Organisms: None Reported Past Surgical History: Bariatric Surgery, Orthopedic Surgery Additional Past Surgical History / Comment(s): bilcarpel tunnel release,gastric sleeve, alice cataracts, rt foot reconstruction d/t being flat footed. lt knee re placment, rt shoulder replacment, rt hip replacement, lt shoulder rebuilt Past Anesthesia/Blood Transfusion Reactions: No Reported Reaction Past Psychological History: No Psychological Hx Reported Past Alcohol Use History: None Reported Past Drug Use History: None Reported - Past Family History Mother Family Medical History: Dementia Additional Family Medical History / Comment(s): at age 94 -dementia Father Family Medical History: Diabetes Mellitus, Myocardial Infarction ([place]) Additional Family Medical History / Comment(s): [place] 69 [place] Brother(s) Family Medical History: Diabetes Mellitus Sister(s) Family Medical History: Cancer (Ovarian) Medications and Allergies Home Medications Medication Instructions Recorded Confirmed Type Calcium Carbonate [Calcium] 600 mg PO DAILY 03/28/18 10/01/23 History Multivitamins, Thera [Multivitamin 1 tab PO DAILY 03/28/18 10/01/23 History (formulary)] Aspirin 81 mg PO DAILY chew 03/31/18 10/01/23 Rx Meloxicam [Mobic] 15 mg PO DAILY 02/14/19 10/01/23 History Rosuvastatin Calcium [Crestor] 40 mg PO DAILY 02/14/19 10/01/23 History Triamcinolone 0.1% Cream [Kenalog 1 applicatio TOPICAL BID 02/14/19 10/01/23 History 0.1% Cream] Clotrimazole Cream [Lotrimin Cream] 1 applic TOPICAL BID 10/01/23 10/01/23 History HYDROcodone/APAP 7.5-325MG [[place] 1 tab PO TID PRN 10/01/23 10/01/23 History 7.5-325] Losartan Potassium 100 mg PO DAILY 10/01/23 10/01/23 History Turmeric Root Extract [Turmeric] 500 mg PO DAILY 10/01/23 10/01/23 History hydrALAZINE HCL [Apresoline] 25 mg PO BID 10/01/23 10/01/23 History hydroCHLOROthiazide [Hydrodiuril] 25 mg PO DAILY 10/01/23 10/01/23 History Allergies Allergy/AdvReac Type Severity Reaction Status Date / Time atorvastatin AdvReac Unknown Verified 10/01/23 18:52 Physical Exam Vitals: Vital Signs Temp Pulse Resp BP Pulse Ox 10/01/23 15:36 98.2 F 64 18 124/76 94 L 10/01/23 14:00 67 17 138/77 98 10/01/23 13:39 97.5 F L 61 18 126/82 95 10/01/23 12:05 98.3 F 50 L 20 164/84 98 Intake and Output 10/01/23 10/01/23 10/01/23 06:59 14:59 22:59 Other: Weight 127.006 kg General appearance: alert, in no apparent distress Head exam: Present: atraumatic, normocephalic, normal inspection Eye exam: Present: normal appearance, PERRL, EOMI. Absent: scleral icterus, conjunctival injection, periorbital swelling ENT exam: Present: normal exam, mucous membranes moist Neck exam: Present: normal inspection, full ROM, other (No stridor JVD or bruits). Absent: tenderness, meningismus, lymphadenopathy Respiratory exam: Present: normal lung sounds bilaterally. Absent: respiratory distress, wheezes, rales, rhonchi, stridor Cardiovascular Exam: Present: regular rate, bradycardia, normal heart sounds. Absent: systolic murmur, diastolic murmur, rubs, gallop, clicks GI/Abdominal exam: Present: soft, normal bowel sounds, other (Obese abdomen no tenderness to palpation no bruits no pulsatile masses.). Absent: distended, tenderness, guarding, rebound, rigid Rectal exam: Present: deferred Extremities exam: Present: full ROM, normal capillary refill, other (Bilateral lower extremity stasis changes the patient does have dressings applied.). Absent: tenderness, pedal edema, joint swelling, calf tenderness Neurological exam: Present: alert, oriented X3, CN II-XII intact Skin exam: Present: warm, dry, intact, other (Patient's changes as noted). Absent: rash Results CBC & Chem 7: 10/01/23 12:45 10/01/23 12:45 Labs: Abnormal Lab Results - Last 24 Hours (Table) 10/01/23 10/01/23 10/01/23 Range/Units 12:45 12:45 12:45 WBC 3.5 L (3.8-10.6) k/uL RBC 4.21 L (4.30-5.90) m/uL Hgb 12.9 L (13.0-17.5) gm/dL Plt Count 143 L (150-450) k/uL Lymphocytes # 0.8 L (1.0-4.8) k/uL D-Dimer 1.16 H (<0.60) mg/L FEU BUN 28 H (9-20) mg/dL Glucose 107 H (74-99) mg/dL Assessment and Plan Assessment: 1. Chest pain/unstable angina -Patient has extensive cardiac history; troponin and EKG is unremarkable -- Given history and chest pain consistent with unstable angina, patient is placed on IV heparin infusion -- Will monitor EKG and trend troponin; nitroglycerin ointment 1 inch every 6 hours -- Consult cardiology; appreciate recommendations 2. Elevated D-dimer; D-dimer elevated at 1.16 --CTA chest completed in ED with PE protocol is negative for PE 3. Mild MELL; BUN mildly elevated at 28 with normal creatinine; patient advised increase oral fluid intake -Will monitor renal function and electrolytes, strict LILIBETH's and daily weights, avoid nephrotoxins and hypotension 4. Pancytopenia; WBC at 3.5 with hemoglobin of 12.9 and platelet count of 143 -- We will monitor CBC closely with plans to consult hematology if blood counts continue to trend down 5. Hypertension; stable on home dose of losartanhydrochlorothiazide 50-12.5 mg daily 6. Hyperlipidemia; Crestor 40 mg daily 7. Diabetes mellitus; monitor Accu-Cheks before every meal and at bedtime with insulin sliding scale DVT prophylaxis; SCDs/IV heparin CODE STATUS;
[2023-10-01] MEDS: HYDROcodone/APAP 7.5-325MG 1 EACH TAB PO PRN (22:26)
[2023-10-02 04:35] LABS: Basophils % (A) 1 %; Eosinophils # (A) 0.1 k/uL (0-0.7); Eosinophils % (A) 3 %; HGB 12.1 gm/dL (13.0-17.5); Lymphocytes # (A) 0.9 k/uL (1.0-4.8); Lymphocytes % (A) 27 %; MCH 30.4 pg (25.0-35.0); MCHC 31.9 g/dL (31.0-37.0); MCV 95.4 fL (80.0-100.0); Monocytes # (A) 0.4 k/uL (0-1.0); Monocytes % (A) 10 %; Neutrophils # (A) 1.9 k/uL (1.3-7.7); Neutrophils % (A) 56 %; Platelet Count 139 k/uL (150-450); RBC 3.99 m/uL (4.30-5.90); RDW 14.7 % (11.5-15.5); WBC 3.5 k/uL (3.8-10.6)
[2023-10-02 05:02] LABS: African American GFR (CKD) >90 (>60 ml/min/1.73 sqM); Anion Gap 4 mmol/L; Blood Urea Nitrogen 23 mg/dL (9-20); Carbon Dioxide 27 mmol/L (22-30); Chloride 107 mmol/L (98-107); Glucose 108 mg/dL (74-99); Non-African American GFR(CKD) 86 (>60 ml/min/1.73 sqM); Sodium 138 mmol/L (137-145)
[2023-10-02] MEDS: HEPARIN SODIUM 1,000 UN/ML (10ML VL) IV PRN (05:18)
[2023-10-02] MEDS: NON FORMULARY DRUG (Rosuvastatin Calcium [Crestor] 40 MG Tablet) PO SCH (08:41)
[2023-10-02] MEDS: ASPIRIN 325 MG TAB PO SCH (08:46)
[2023-10-02] MEDS: LORATADINE 10 MG TAB PO SCH (08:46)
[2023-10-02] MEDS: MELOXICAM 7.5 MG TAB PO SCH (08:46)
[2023-10-02] MEDS: CALCIUM CARBONATE 500 MG CHEWABLE PO SCH (08:47)
[2023-10-02] MEDS: LOSARTAN-HCTZ 50-12.5 MG 1 EACH TAB PO SCH (08:49)
[2023-10-02] MEDS ORDERED: CLOPIDOGREL 75 MG TAB PO SCH (09:00)
[2023-10-02 09:31] LABS: Chol/HDL Ratio 2.74 Ratio
[2023-10-02] MEDS: ACETAMINOPHEN TAB 325 MG TAB PO PRN (10:33)
--- NOTE | 2023-10-02 11:58 | P.CRDCN ---
History of Present Illness Consult date: 10/02/23 Chief complaint: CP History of present illness: The patient is a very pleasant 77-year-old gentleman with a past medical history significant for coronary artery disease with prior angioplasty of the left circumflex in the setting of very tortuous and calcified lesion and also hypertension and dyslipidemia and overweight. In 2018 he underwent successful angioplasty of the left circumflex coronary artery and because the artery was extremely tortuous and calcified stent was not be able to be delivered. He did well till recently. He presented to the hospital complaining of chest discomfort. He describes intermittent episodes of chest discomfort. He describes discomfort as a pressure in the middle of the chest with no radiation into the arms or neck or shoulders or back and no associated symptoms and the chest discomfort according to him is not exertional related. The discomfort started few weeks ago. Did not get worse in terms of intensity or frequency. Currently his chest pain-free with he underwent further workup including D-dimer came in to be abnormal but CT scan of the chest showed no pulmonary embolism. He also underwent an EKG which showed sinus rhythm with sinus bradycardia and diffuse nonspecific ST and T wave abnormalities and PVCs. Troponin is unremarkable. He was started on heparin in spite of normal troponin and he stated that he has been feeling better overall. The echo is still pending. Examination is remarkable for regular rhythm with a systolic murmur at the right and left upper sternal border with clear breathing sounds bilaterally and no edema was noted. Assessment Chest discomfort Coronary artery disease as described above Multiple comorbid conditions including obesity and hypertension and dyslipidemia Plan Continue the current medical regimen Oral nitrate and Ranexa to the current medical regimen Follow-up on the echocardiogram which was ordered earlier Further recommendation to follow the echocardiogram and the patient progression Past Medical History Past Medical History: Coronary Artery Disease (CAD), Diabetes Mellitus, Eye Disorder, Hyperlipidemia, Hypertension, Osteoarthritis (OA), Sleep Apnea/CPAP/BIPAP Additional Past Medical History / Comment(s): tammie 2002, in past was treated for diabetres but after bariatric sx lost 100# no longer needed insuling and only checks bs occ. no longer needs cpap machine since wt loss. ddd pt stated he had his back stretched by jayson wilson at [facility] in [place]. has the start of macular degeneration-has'nt progressed inpast 3 years. has abrasion lt lower leg. History of Any Multi-Drug Resistant Organisms: None Reported Past Surgical History: Bariatric Surgery, Orthopedic Surgery Additional Past Surgical History / Comment(s): bilcarpel tunnel release,gastric sleeve, alice cataracts, rt foot reconstruction d/t being flat footed. lt knee replacment, rt shoulder replacment, rt hip replacement, lt shoulder rebuilt Past Anesthesia/Blood Transfusion Reactions: No Reported Reaction Past Psychological History: No Psychological Hx Reported Smoking Status: Former smoker Past Alcohol Use History: None Reported Additional Past Alcohol Use History / Comment(s): started smoking age 18 and quit age 33 smoked a pipe. no alcohol use now. Past Drug Use History: None Reported - Past Family History Mother Family Medical History: Dementia Additional Family Medical History / Comment(s): at age 94 -dementia Father Family Medical History: Diabetes Mellitus, Myocardial Infarction ([place]) Additional Family Medical History / Comment(s): at age 69 from [place]. Brother(s) Family Medical History: Diabetes Mellitus Sister(s) Family Medical History: Cancer Medications and Allergies Home Medications Medication Instructions Recorded Confirmed Type Calcium Carbonate [Calcium] 600 mg PO DAILY 03/28/18 10/01/23 History Multivitamins, Thera [Multivitamin 1 tab PO DAILY 03/28/18 10/01/23 History (formulary)] Aspirin 81 mg PO DAILY chew 03/31/18 10/01/23 Rx Meloxicam [Mobic] 15 mg PO DAILY 02/14/19 10/01/23 History Rosuvastatin Calcium [Crestor] 40 mg PO DAILY 02/14/19 10/01/23 History Triamcinolone 0.1% Cream [Kenalog 1 applicatio TOPICAL BID 02/14/19 10/01/23 History 0.1% Cream] Clotrimazole Cream [Lotrimin Cream] 1 applic TOPICAL BID 10/01/23 10/01/23 History HYDROcodone/APAP 7.5-325MG [[place] 1 tab PO TID PRN 10/01/23 10/01/23 History 7.5-325] Losartan Potassium 100 mg PO DAILY 10/01/23 10/01/23 History Turmeric Root Extract [Turmeric] 500 mg PO DAILY 10/01/23 10/01/23 History hydrALAZINE HCL [Apresoline] 25 mg PO BID 10/01/23 10/01/23 History hydroCHLOROthiazide [Hydrodiuril] 25 mg PO DAILY 10/01/23 10/01/23 History Allergies Allergy/AdvReac Type Severity Reaction Status Date / Time atorvastatin AdvReac Unknown Verified 10/01/23 18:52 Physical Exam Vitals: Vital Signs Temp Pulse Pulse Resp BP BP Pulse Ox 10/02/23 11:46 63 18 116/57 94 L 10/02/23 08:00 97.6 F 56 L 18 129/66 97 10/02/23 05:07 98.0 F 58 L 16 153/90 97 10/01/23 19:08 97.9 F 60 18 133/67 95 10/01/23 17:59 59 L 18 117/62 95 10/01/23 15:36 98.2 F 64 18 124/76 94 L 10/01/23 14:00 67 17 138/77 98 10/01/23 13:39 97.5 F L 61 18 126/82 95 10/01/23 12:05 98.3 F 50 L 20 164/84 98 Intake and Output 10/01/23 10/02/23 10/02/23 22:59 06:59 14:59 Intake Total 159.833 289.95 Balance 159.833 289.95 Intake: Intake, IV Titration 159.833 49.95 Amount Heparin Sod,Pork in 0.45% 159.833 49.95 NaCl 25,000 unit In 0.45 % NaCl 1 250ml.bag @ 7. 874 UNITS/KG/HR 10 mls/hr IV .Q24H [facility] Rx#: [id number] Oral 240 Other: # Voids 1 # Bowel Movements 1 Weight 127.006 kg Results 10/02/23 04:25 10/02/23 04:25 Cardiac Enzymes 10/01/23 10/01/23 10/01/23 Range/Units 12:45 12:45 17:19 AST 40 (17-59) U/L Troponin I <0.012 <0.012 (0.000-0.034) ng/mL 10/01/23 Range/Units 19:37 AST (17-59) U/L Troponin I <0.012 (0.000-0.034) ng/mL Coagulation 10/01/23 10/01/23 10/02/23 Range/Units 12:45 19:37 04:25 PT 11.1 (10.0-12.5) sec APTT 25.0 38.4 H 30.5 H (22.0-30.0) sec Lipids 10/02/23 Range/Units 04:25 Triglycerides 115.00 (0.00-149.00) mg/dL Cholesterol 118.00 (0.00-200.00) mg/dL HDL Cholesterol 43.00 (40.00-60.00) mg/dL Cholesterol/HDL Ratio 2.74 Ratio CBC 10/01/23 10/02/23 Range/Units 12:45 04:25 WBC 3.5 L 3.5 L (3.8-10.6) k/uL RBC 4.21 L 3.99 L (4.30-5.90) m/uL Hgb 12.9 L 12.1 L (13.0-17.5) gm/dL Hct 40.0 38.0 L (39.0-53.0) % Plt Count 143 L 139 L (150-450) k/uL Comprehensive Metabolic Panel 10/01/23 10/02/23 Range/Units 12:45 04:25 Sodium 140 138 (137-145) mmol/L Potassium 4.4 4.0 (3.5-5.1) mmol/L Chloride 107 107 (98-107) mmol/L Carbon Dioxide 22 27 (22-30) mmol/L BUN 28 H 23 H (9-20) mg/dL Creatinine 0.92 0.79 (0.66-1.25) mg/dL Glucose 107 H 108 H (74-99) mg/dL Calcium 9.1 9.0 (8.4-10.2) mg/dL AST 40 (17-59) U/L ALT 21 (4-49) U/L Alkaline Phosphatase 74 (38-126) U/L Total Protein 7.4 (6.3-8.2) g/dL Albumin 4.2 (3.5-5.0) g/dL Current Medications Generic Name Dose Route Start Last Admin Trade Name Freq PRN Reason Stop Dose Admin Acetaminophen 650 mg 10/02/23 10:17 10/02/23 10:33 Acetaminophen Tab 325 Mg Tab PO 650 mg Q6HR PRN Administration Fever and/ or Pain Hydrocodone Bitart/Acetaminophen 1 each 10/01/23 19:52 10/02/23 08:51 Hydrocodone/Apap 7.5-325mg 1 Each Tab PO 1 each TID PRN Administration Pain Aspirin 325 mg 10/02/23 09:00 10/02/23 08:46 Aspirin 325 Mg Tab PO 325 mg DAILY [facility] Administration Calcium Carbonate/Glycine 500 mg 10/02/23 09:00 10/02/23 08:47 Calcium Carbonate 500 Mg Chewable PO 500 mg DAILY [facility] Administration HCTZ/Losartan Potassium 1 each 10/02/23 09:00 10/02/23 08:49 Losartan-Hctz 50-12.5 Mg 1 Each Tab PO 1 each DAILY [facility] Administration Heparin Sodium (Porcine) 0 unit 10/02/23 05:15 10/02/23 05:18 Heparin Sodium 1,000 Un/Ml (10ml Vl) IV 6,350.3 unit Q6HR PRN Administration Low PTT Protocol Heparin Sodium/Sodium Chloride 250 mls @ 10 mls/hr 10/01/23 12:45 10/02/23 08:47 25,000 unit/ Sodium Chloride IV 10.874 units/kg/hr .Q24H [facility] 13.811 mls/hr Administration Protocol 7.874 UNITS/KG/HR Sodium Chloride 1,000 mls @ 20 mls/hr 10/01/23 16:45 10/01/23 18:03 Saline 0.9% IV 20 mls/hr .Q24H [facility] Administration Isosorbide Mononitrate 30 mg 10/03/23 09:00 Isosorbide Mononitrate Er 30 Mg Tab.Er.24h PO DAILY [facility] Loratadine 10 mg 10/02/23 09:00 10/02/23 08:46 Loratadine 10 Mg Tab PO 10 mg DAILY [facility] Administration Meloxicam 15 mg 10/02/23 09:00 10/02/23 08:46 Meloxicam 7.5 Mg Tab PO 15 mg DAILY [facility] Administration Nitroglycerin 0.4 mg 10/01/23 16:32 Nitroglycerin Sl Tabs 0.4 Mg Tab SUBLINGUAL Q5M PRN Chest Pain Nitroglycerin 1 inch 10/01/23 18:00 10/02/23 11:28 Nitroglycerin Oint 1 Inch/Gm Packet TOPICAL Not Given Q6HR [facility] Non-Formulary Medication 40 mg 10/02/23 09:00 10/02/23 08:41 Rosuvastatin Calcium [Crestor] PO Not Given DAILY [facility] Ranolazine 500 mg 10/02/23 21:00 Ranolazine 500 Mg Tab.Er.12h PO Q12HR [facility] Intake and Output 10/01/23 10/02/23 10/02/23 22:59 06:59 14:59 Intake Total 159.833 289.95 Balance 159.833 289.95 Intake: Intake, IV Titration 159.833 49.95 Amount Heparin Sod,Pork in 0.45% 159.833 49.95 NaCl 25,000 unit In 0.45 % NaCl 1 250ml.bag @ 7. 874 UNITS/KG/HR 10 mls/hr IV .Q24H [facility] Rx#: [id number] Oral 240 Other: # Voids 1 # Bowel Movements 1 Weight 127.006 kg Patient Weight 10/03/23 06:59 Weight 127.006 kg 10/02/23 04:25 10/02/23 04:25
--- NOTE | 2023-10-02 15:46 | P.PN ---
Subjective Progress Note Date: 10/02/23 77-year-old male history of hypertension, hyperlipidemia, diabetes mellitus and coronary artery disease with a obtuse marginal lesion that was not able to be stented in 2018 history of diabetes hyperlipidemia hypertension chronic stasis dermatitis to the lower extremities who presents with complaints of retrosternal chest pain feeling like someone standing on his chest. He states he had this last night for about an hour he is short of breath with it no nausea vomiting fevers chills or sweats. He states that this morning about 2 hours prior to arrival he had 6-7/10 pain similar to the previous pain which lasted for perhaps an hour he still states its there but about 5/10 in severity he was brought in by his family member. He did take 81 mg of aspirin this morning. He denies any worsening of the condition with exertion and nothing makes it better. Blood work completed in ED reveals WBC of 3.5, hemoglobin of 12.9 and platelet count of 143, D-dimer of 1.16, sodium 140, potassium 4.4, BUNs/creatinine of 28/0.92, troponin of less than 0.012, BNP of 402. EKG is negative for any acute changes CT of the chest completed with PE protocol is negative for PE Patient has been evaluated by cardiology-- Continue the current medical regimen Oral nitrate and Ranexa to the current medical regimen Follow-up on the echocardiogram which was ordered earlier Further recommendation to follow the echocardiogram and the patient progression Objective - Vital Signs Vital signs: Vital Signs Temp 97.6 F 10/02/23 08:00 Pulse 63 10/02/23 11:46 Resp 18 10/02/23 11:46 BP 116/57 10/02/23 11:46 Pulse Ox 94 L 10/02/23 11:46 FiO2 Intake & Output 10/01/23 10/02/23 10/02/23 18:59 06:59 18:59 Intake Total 159.833 289.95 Balance 159.833 289.95 Weight 127.006 kg 127.006 kg Intake: Intake, IV Titration 159.833 49.95 Amount Heparin Sod,Pork in 0.45% 159.833 49.95 NaCl 25,000 unit In 0.45 % NaCl 1 250ml.bag @ 7. 874 UNITS/KG/HR 10 mls/hr IV .Q24H [facility] Rx#: [id number] Oral 240 Other: # Voids 1 # Bowel Movements 1 - Exam General appearance: alert, in no apparent distress Head exam: Present: atraumatic, normocephalic, normal inspection Eye exam: Present: normal appearance, PERRL, EOMI. Absent: scleral icterus, conjunctival injection, periorbital swelling ENT exam: Present: normal exam, mucous membranes moist Neck exam: Present: normal inspection, full ROM, other (No stridor JVD or bruits). Absent: tenderness, meningismus, lymphadenopathy Respiratory exam: Present: normal lung sounds bilaterally. Absent: respiratory distress, wheezes, rales, rhonchi, stridor Cardiovascular Exam: Present: regular rate, bradycardia, normal heart sounds. Absent: systolic murmur, diastolic murmur, rubs, gallop, clicks GI/Abdominal exam: Present: soft, normal bowel sounds, other (Obese abdomen no tenderness to palpation no bruits no pulsatile masses.). Absent: distended, tenderness, guarding, rebound, rigid Rectal exam: Present: deferred Extremities exam: Present: full ROM, normal capillary refill, other (Bilateral lower extremity stasis changes the patient does have dressings applied.). Absent: tenderness, pedal edema, joint swelling, calf tenderness Neurological exam: Present: alert, oriented X3, CN II-XII intact Skin exam: Present: warm, dry, intact, other (Patient's changes as noted). Absent: rash - Labs CBC & Chem 7: 10/02/23 04:25 10/02/23 04:25 Labs: Abnormal Lab Results - Last 24 Hours (Table) 10/01/23 10/01/23 10/01/23 Range/Units 12:45 12:45 12:45 WBC 3.5 L (3.8-10.6) k/uL RBC 4.21 L (4.30-5.90) m/uL Hgb 12.9 L (13.0-17.5) gm/dL Hct (39.0-53.0) % Plt Count 143 L (150-450) k/uL Lymphocytes # 0.8 L (1.0-4.8) k/uL APTT (22.0-30.0) sec D-Dimer 1.16 H (<0.60) mg/L FEU BUN 28 H (9-20) mg/dL Glucose 107 H (74-99) mg/dL 10/01/23 10/02/23 10/02/23 Range/Units 19:37 04:25 04:25 WBC 3.5 L (3.8-10.6) k/uL RBC 3.99 L (4.30-5.90) m/uL Hgb 12.1 L (13.0-17.5) gm/dL Hct 38.0 L (39.0-53.0) % Plt Count 139 L (150-450) k/uL Lymphocytes # 0.9 L (1.0-4.8) k/uL APTT 38.4 H (22.0-30.0) sec D-Dimer (<0.60) mg/L FEU BUN 23 H (9-20) mg/dL Glucose 108 H (74-99) mg/dL 10/02/23 Range/Units 04:25 WBC (3.8-10.6) k/uL RBC (4.30-5.90) m/uL Hgb (13.0-17.5) gm/dL Hct (39.0-53.0) % Plt Count (150-450) k/uL Lymphocytes # (1.0-4.8) k/uL APTT 30.5 H (22.0-30.0) sec D-Dimer (<0.60) mg/L FEU BUN (9-20) mg/dL Glucose (74-99) mg/dL Assessment and Plan Assessment: 1. Chest pain/unstable angina -Patient has extensive cardiac history; troponin and EKG is unremarkable -- Given history and chest pain consistent with unstable angina, patient is placed on IV heparin infusion -- Will monitor EKG and trend troponin; nitroglycerin ointment 1 inch every 6 hours -- Consult cardiology; appreciate recommendations 2. Elevated D-dimer; D-dimer elevated at 1.16 --CTA chest completed in ED with PE protocol is negative for PE 3. Mild MELL; BUN mildly elevated at 28 with normal creatinine; patient advised increase oral fluid intake -Will monitor renal function and electrolytes, strict LILIBETH's and daily weights, avoid nephrotoxins and hypotension 4. Pancytopenia; WBC at 3.5 with hemoglobin of 12.9 and platelet count of 143 -- We will monitor CBC closely with plans to consult hematology if blood counts continue to trend down 5. Hypertension; stable on home dose of losartanhydrochlorothiazide 50-12.5 mg daily 6. Hyperlipidemia; Crestor 40 mg daily 7. Diabetes mellitus; monitor Accu-Cheks before every meal and at bedtime with insulin sliding scale DVT prophylaxis; SCDs/IV heparin CODE STATUS;
[2023-10-02] MEDS ORDERED: MAG HYDROX/AL HYDROX/SIMETH 30 ML CUP PO PRN (18:59)
--- NOTE | 2023-10-02 19:32 | CA ---
Transthoracic Echo Report Name: Bradly Shafer Age: 77 Gender: M : 1945 Exam Date: 10/02/2023 15:53 Exam Location: [facility] Ht (in): 65 Wt (lb): 280 Ordering Physician: Chapito Morris MD Attending/Referring Phys: [employer] Worker Sergio Vargas RDCS Procedure CPT: Indications: Chest pain, ACS, unstable angina Cardiac Hx: Technical Quality: Contrast 1: Definity Total Dose (mL): 2 Contrast 2: Total Dose (mL): MEASUREMENTS (Male / Female) Normal Values 2D ECHO LV Diastolic Diameter PLAX 5.2 cm 4.2 - 5.9 / 3.9 - 5.3 cm LV Systolic Diameter PLAX 4.3 cm IVS Diastolic Thickness 1.1 cm 0.6 - 1.0 / 0.6 - 0.9 cm LVPW Diastolic Thickness 1.1 cm 0.6 - 1.0 / 0.6 - 0.9 cm LV Relative Wall Thickness 0.4 LVOT Diameter 2.5 cm Aortic Root Diameter 3.7 cm LA Systolic Diameter LX 3.8 cm 3.0 - 4.0 / 2.7 - 3.8 cm DOPPLER AV Peak Velocity 118.7 cm/s AV Peak Gradient 5.6 mmHg AV Mean Velocity 82.6 cm/s AV Mean Gradient 3.1 mmHg AV Velocity Time Integral 22.1 cm LVOT Peak Velocity 98.4 cm/s LVOT Peak Gradient 3.9 mmHg LVOT Velocity Time Integral 17.7 cm LVOT Stroke Volume 86.6 cm??? LVOT Stroke Volume Index 37.9 ml/m??? LVOT Cardiac Index 1915.7 cm???/min???m??? AV Area Cont Eq vti 3.9 cm??? AV Area Cont Eq pk 4.1 cm??? Mitral E Point Velocity 66.0 cm/s Mitral A Point Velocity 92.7 cm/s Mitral E to A Ratio 0.7 MV Deceleration Time 266.1 ms MV E' Velocity 8.4 cm/s Mitral E to MV E' Ratio 7.9 PV Peak Velocity 84.6 cm/s PV Peak Gradient 2.9 mmHg FINDINGS Left Ventricle Mildly increased septal wall thickness. Left ventricular ejection fraction is estimated at 40-45 %. Right Ventricle Unable to estimate the right ventricular systolic pressure. Right Atrium Left Atrium Normal left atrial size. Mitral Valve Trace mitral regurgitation. Aortic Valve Trileaflet aortic valve. Tricuspid Valve Mild tricuspid regurgitation. Pulmonic Valve Trace pulmonic regurgitation. Pericardium No pericardial effusion. Aorta Normal size aortic root. CONCLUSIONS Previous echo recorded on 03/29/2018. Technically difficult study for interpretation Mildly impaired LV function with EF between 40-45% Poorly visualized intracardiac valves Previewed by: Dr. Awais Drake MD (Electronically Signed) Final Date: 02 October 2023 19:31
[2023-10-02] MEDS: RANOLAZINE 500 MG TAB.ER.12H PO SCH (20:48)
[2023-10-03 09:33] LABS: Basophils % (A) 0 %; Eosinophils # (A) 0.1 k/uL (0-0.7); Eosinophils % (A) 2 %; HGB 13.4 gm/dL (13.0-17.5); Hypochromasia Slight; Lymphocytes # (A) 0.9 k/uL (1.0-4.8); Lymphocytes % (A) 25 %; MCHC 31.9 g/dL (31.0-37.0); MCV 97.1 fL (80.0-100.0); Mean Platelet Volume 8.3; Monocytes # (A) 0.3 k/uL (0-1.0); Monocytes % (A) 8 %; Neutrophils # (A) 2.2 k/uL (1.3-7.7); Neutrophils % (A) 61 %; Platelet Count 156 k/uL (150-450); RBC 4.32 m/uL (4.30-5.90); RDW 14.9 % (11.5-15.5); WBC 3.6 k/uL (3.8-10.6)
[2023-10-03 09:43] VITALS: RESP 20
[2023-10-03 09:55] LABS: African American GFR (CKD) >90 (>60 ml/min/1.73 sqM); Anion Gap 10 mmol/L; Blood Urea Nitrogen 22 mg/dL (9-20); Calcium 9.4 mg/dL (8.4-10.2); Carbon Dioxide 28 mmol/L (22-30); Chloride 104 mmol/L (98-107); Glucose 112 mg/dL (74-99); Non-African American GFR(CKD) 80 (>60 ml/min/1.73 sqM); Potassium 4.8 mmol/L (3.5-5.1); Sodium 142 mmol/L (137-145)
[2023-10-03] MEDS: ISOSORBIDE MONONITRATE ER 30 MG TAB.ER.24H PO SCH (10:36)
[2023-10-03 11:27] VITALS: BP 126/66; PULSE 78; TEMP 97.4
--- NOTE | 2023-10-03 14:27 | P.PN ---
Subjective HISTORY OF PRESENT ILLNESS: The patient is a very pleasant 77-year-old gentleman with a past medical history significant for coronary artery disease with prior angioplasty of the left circumflex in the setting of very tortuous and calcified lesion and also hypertension and dyslipidemia and overweight. In 2018 he underwent successful angioplasty of the left circumflex coronary artery and because the artery was extremely tortuous and calcified stent was not be able to be delivered. He did well till recently. He presented to the hospital complaining of chest discomfort. He describes intermittent episodes of chest discomfort. He describes discomfort as a pressure in the middle of the chest with no radiation into the arms or neck or shoulders or back and no associated symptoms and the chest discomfort according to him is not exertional related. The discomfort started few weeks ago. Did not get worse in terms of intensity or frequency. Currently his chest pain-free with he underwent further workup including D-dimer came in to be abnormal but CT scan of the chest showed no pulmonary embolism. He also underwent an EKG which showed sinus rhythm with sinus bradycardia and diffuse nonspecific ST and T wave abnormalities and PVCs. Troponin is unremarkable. He was started on heparin in spite of normal troponin and he stated that he has been feeling better overall. The echo is still pending. Examination is remarkable for regular rhythm with a systolic murmur at the right and left upper sternal border with clear breathing sounds bilaterally and no edema was noted. 10/03/2023 Patient examined this morning. Patient is sitting up in the chair. Patient denies any further episodes of chest pain or pressure. He was started on Imdur and Ranexa. He denies any shortness of breath. Vital signs are stable. Echocardiogram completed revealing ejection fraction 40 to 45%, trace MR, and technically difficult study. He is hoping to be discharged home today. PHYSICAL EXAM: VITAL SIGNS: Reviewed. GENERAL: Well-developed in no acute distress. NECK: Supple. No JVD or thyromegaly LUNGS: Respirations even and unlabored. Lungs essentially clear to auscultation bilaterally. HEART: Regular rate and rhythm. S1 and S2 heard. EXTREMITIES: Normal range of motion. No clubbing or cyanosis. Peripheral pulses intact. No lower extremity edema ASSESSMENT: Chest pain, troponin negative x 3 History of coronary artery disease with previous angioplasty Hypertension Hyperlipidemia Morbid obesity PLAN: Continue current cardiac medications Continue IV heparin Patient may be discharged home today from a cardiac standpoint He is to follow-up postdischarge in the office Nurse practitioner note has been reviewed by physician. Signing provider agrees with the documented findings, assessment, and plan of care documented by [employer] ATTENDANT as a scribe. Objective - Vital Signs Vital signs: Vital Signs Temp 97.4 F L 10/03/23 11:24 Pulse 78 10/03/23 11:24 Resp 20 10/03/23 11:24 BP 126/66 10/03/23 11:24 Pulse Ox 94 L 10/03/23 11:24 FiO2 Intake & Output 10/02/23 10/03/23 10/03/23 18:59 06:59 18:59 Intake Total 588.186 177.893 118 Balance 588.186 177.893 118 Weight 127.006 kg Intake: Intake, IV Titration 108.186 177.893 Amount Heparin Sod,Pork in 0.45% 108.186 177.893 NaCl 25,000 unit In 0.45 % NaCl 1 250ml.bag @ 7. 874 UNITS/KG/HR 10 mls/hr IV .Q24H [facility] Rx#: [id number] Oral 480 118 Other: # Voids 1 3 # Bowel Movements 1 - Labs CBC & Chem 7: 10/03/23 08:34 10/03/23 08:34 Labs: Abnormal Lab Results - Last 24 Hours (Table) 10/02/23 10/03/23 10/03/23 Range/Units 18:30 08:34 08:34 WBC 3.6 L (3.8-10.6) k/uL Lymphocytes # 0.9 L (1.0-4.8) k/uL APTT 50.5 H (22.0-30.0) sec BUN 22 H (9-20) mg/dL Glucose 112 H (74-99) mg/dL 10/03/23 Range/Units 08:34 WBC (3.8-10.6) k/uL Lymphocytes # (1.0-4.8) k/uL APTT 39.8 H (22.0-30.0) sec BUN (9-20) mg/dL Glucose (74-99) mg/dL
[2023-10-03] MEDS ORDERED: HEPARIN SODIUM,PORCINE 5,000 UNIT/ML 1 ML VIAL SQ SCH (16:00)
[2023-10-04] MEDS ORDERED: ASPIRIN 81 MG PO SCH (09:00)
--- NOTE | 2023-10-04 10:06 | P.DS ---
Providers Date of admission: 10/01/23 16:32 Expected date of discharge: 10/03/23 Attending physician: Javier Mina MD Consults: 10/01/23 16:32 Consult Physician Urgent Consulting Provider: René Burkett Consult Reason/Comments: Chest pain, ACS Do you want consulting provider notified?: Yes Primary care physician: Rg Linton Hospital Course: Final diagnosis Chest pain/unstable angina, ruled out ACS Elevated D-dimer; D-dimer elevated at 1.16, ruled out PE on CTA History of coronary artery disease with previous angioplasty Mild MELL Pancytopenia Hypertension Hyperlipidemia Diabetes mellitus Morbid obesity with a BMI of 45.2 GI prophylaxis DVT prophylaxis full code Discharge disposition Patient is being discharged in a stable condition with guarded prognosis to home. Patient will follow-up with Dr. Rg Linton in the outpatient setting upon discharge. Patient is to continue with current medications and outpatient follow-up with cardiology as scheduled. Total time taken is greater than 35 minutes. Hospital course This is a 77-year-old male who was recently admitted with chest pain, troponins x 3 were negative. Patient has extensive cardiac history evaluated by cardiology underwent 2D echo which showed a mildly increased septal wall thickness with LV ejection fraction 40 to 45%. Patient has been cleared by cardiology recommending outpatient follow-up. Please refer to cardiology notes for further HPI. Patient reports to feeling well and would like to go home. Medications adjusted and sent to the pharmacy. Currently no reports of chest pain, shortness of breath, or palpitations. Patient is afebrile. No reports of nausea or vomiting and patient is tolerating diet. Patient will be discharged home today. Guarded prognosis Physical exam: Gen: This is a 77-year-old male who is awake, alert and oriented x 3, well- developed, well-nourished HEENT: Head is atraumatic, normocephalic. Pupils equal, round. Sclerae is anicteric. NECK: Supple. No JVD. No lymphadenopathy. No thyromegaly. LUNGS: Diminished breath sounds bilaterally otherwise clear to auscultation. No wheezes or rhonchi. No intercostal retractions. HEART: S1, S2 are muffled ABDOMEN: Soft. Obese. Bowel sounds are present. No masses. No tenderness. EXTREMITIES: No pedal edema. No calf tenderness. NEUROLOGICAL: Patient is awake, alert and oriented x3. Cranial nerves 2 through 12 are grossly intact. Please refer to medication reconciliation sheet for a list of medications. The impression and plan of care has been dictated by Cher Ochoa, Nurse Practitioner as directed. Dr. Silvino MD I have performed a history and examination and MDM of this patient, discussed the same with the dictator, and agree with the dictator's assessment and plan as written ,documented as a scribe. Based on total visit time, I have performed more than 50% of the visit. Patient Condition at Discharge: Fair Plan - Discharge Summary Discharge Rx Participant: No New Discharge Prescriptions: New Loratadine [Claritin] 10 mg PO DAILY #30 tab Isosorbide Mononitrate ER [Imdur] 30 mg PO DAILY #30 tab Ranolazine [Ranexa] 500 mg PO Q12HR 30 Days #60 tab Acetaminophen Tab [Tylenol] 650 mg PO Q6HR PRN tab PRN Reason: Fever And/ Or Pain Losartan-Hctz 50-12.5 mg [Hyzaar 50-12.5] 1 tab PO DAILY #30 tablet Continue Multivitamins, Thera [Multivitamin (formulary)] 1 tab PO DAILY Calcium Carbonate [Calcium] 600 mg PO DAILY Aspirin 81 mg PO DAILY chew Triamcinolone 0.1% Cream [Kenalog 0.1% Cream] 1 applicatio TOPICAL BID Rosuvastatin Calcium [Crestor] 40 mg PO DAILY Meloxicam [Mobic] 15 mg PO DAILY Clotrimazole Cream [Lotrimin Cream] 1 applic TOPICAL BID Turmeric Root Extract [Turmeric] 500 mg PO DAILY HYDROcodone/APAP 7.5-325MG [Straughn 7.5-325] 1 tab PO TID PRN PRN Reason: Pain Discontinued hydroCHLOROthiazide [Hydrodiuril] 25 mg PO DAILY Losartan Potassium 100 mg PO DAILY hydrALAZINE HCL [Apresoline] 25 mg PO BID Discharge Medication List Calcium Carbonate [Calcium] 600 mg PO DAILY 03/28/18 [History] Multivitamins, Thera [Multivitamin (formulary)] 1 tab PO DAILY 03/28/18 [History] Aspirin 81 mg PO DAILY chew 03/31/18 [Rx] Meloxicam [Mobic] 15 mg PO DAILY 02/14/19 [History] Rosuvastatin Calcium [Crestor] 40 mg PO DAILY 02/14/19 [History] Triamcinolone 0.1% Cream [Kenalog 0.1% Cream] 1 applicatio TOPICAL BID 02/14/19 [History] Clotrimazole Cream [Lotrimin Cream] 1 applic TOPICAL BID 10/01/23 [History] HYDROcodone/APAP 7.5-325MG [Straughn 7.5-325] 1 tab PO TID PRN 10/01/23 [History] Turmeric Root Extract [Turmeric] 500 mg PO DAILY 10/01/23 [History] Acetaminophen Tab [Tylenol] 650 mg PO Q6HR PRN tab 10/03/23 [Rx] Isosorbide Mononitrate ER [Imdur] 30 mg PO DAILY #30 tab 10/03/23 [Rx] Loratadine [Claritin] 10 mg PO DAILY #30 tab 10/03/23 [Rx] Losartan-Hctz 50-12.5 mg [Hyzaar 50-12.5] 1 tab PO DAILY #30 tablet 10/03/23 [Rx] Ranolazine [Ranexa] 500 mg PO Q12HR 30 Days #60 tab 10/03/23 [Rx] Follow up Appointment(s)/Referral(s): René Burkett MD [STAFF PHYSICIAN] - 10/14/23 3:00 pm Rg Linton MD [Primary Care Provider] - 10/04/23 11:30 am Activity/Diet/Wound Care/Special Instructions: Activity limited until follow-up Follow-up with cardiology outpatient Follow-up with primary care provider on discharge Continue to take medications as prescribed and follow-up Discharge Disposition: HOME SELF-CARE
== END 2023-10-03 15:40 | disposition home or self-care (01) | DRG 303 ==
LOC: SUPCPDRO 12:01 → EC 12:01 → 3SCARD 16:32
PROVIDERS: ADMIT Internal Medicine; ATTEND Internal Medicine
DX: I25.110 Atherosclerotic heart disease of native coronary artery with unstable angina pectoris (principal); D61.818 Other pancytopenia; Z68.42 Body mass index [BMI] 45.0-49.9, adult; N17.9 Acute kidney failure, unspecified; E11.9 Type 2 diabetes mellitus without complications; E66.01 Morbid (severe) obesity due to excess calories; I10 Essential (primary) hypertension; I25.84 Coronary atherosclerosis due to calcified coronary lesion; E78.5 Hyperlipidemia, unspecified; I87.2 Venous insufficiency (chronic) (peripheral); I49.3 Ventricular premature depolarization; G47.30 Sleep apnea, unspecified; M19.90 Unspecified osteoarthritis, unspecified site; H35.30 Unspecified macular degeneration; S80.812A Abrasion, left lower leg, initial encounter; Z79.82 Long term (current) use of aspirin; Z79.1 Long term (current) use of non-steroidal anti-inflammatories (NSAID); Z79.899 Other long term (current) drug therapy; Z98.61 Coronary angioplasty status; Z87.891 Personal history of nicotine dependence; Z96.641 Presence of right artificial hip joint; Z96.611 Presence of right artificial shoulder joint; Z96.652 Presence of left artificial knee joint; Z98.84 Bariatric surgery status; Z86.19 Personal history of other infectious and parasitic diseases; Z88.8 Allergy status to other drugs, medicaments and biological substances; Z82.49 Family history of ischemic heart disease and other diseases of the circulatory system
CPT/HCPCS: 36415; 71046; 71275; 80048; 80053; 80061; 83690; 83735; 83880; 84484; 85025; 85379; 85610; 85730; 93005; 93306; 96365; 96366; 99291

== ENCOUNTER 2023-10-17 21:09 | Inpatient (IN) | payer MEDICARE, OTHER ==
--- NOTE | 2023-10-17 21:44 | ED ---
Chest Pain HPI - General Chief Complaint: Chest Pain Stated Complaint: Chest Pain,Sob Time Seen by Provider: 10/17/23 21:26 Source: patient Mode of arrival: wheelchair Limitations: no limitations - History of Present Illness Initial Comments: Patient is an 78-year-old man who presents for evaluation of a pressure feeling on his chest. The patient states that it started this afternoon. He notes that he had gone to the cardiology clinic and he had a stress test. The patient states that he felt well during the stress test but notes that his medications had been held prior to the stress test. He went home and then was having a pressure feeling on his chest and noted that his blood pressure was high. He tried taking medication but blood pressure remained elevated so he presents here still with the chest pressure. The patient has no associated symptoms, no dyspnea, diaphoresis, nausea/vomiting, palpitations, lightheadedness or syncope. MD Complaint: chest pain -: hour(s) Onset: during rest Pain Location: substernal, left chest Pain Radiation: none Severity: moderate Quality: heaviness Consistency: constant Improves With: nothing Worsens With: nothing Treatments Prior to Arrival: none - Related Data Home Medications Medication Instructions Recorded Confirmed Calcium Carbonate [Calcium] 600 mg PO DAILY 03/28/18 10/18/23 Multivitamins, Thera [Multivitamin 1 tab PO DAILY 03/28/18 10/18/23 (formulary)] Meloxicam [Mobic] 15 mg PO DAILY 02/14/19 10/18/23 Triamcinolone 0.1% Cream [Kenalog 1 applicatio TOPICAL BID 02/14/19 10/18/23 0.1% Cream] Clotrimazole Cream [Lotrimin Cream] 1 applic TOPICAL BID 10/01/23 10/18/23 HYDROcodone/APAP 7.5-325MG [[place] 1 tab PO TID PRN 10/01/23 10/18/23 7.5-325] Turmeric Root Extract [Turmeric] 500 mg PO DAILY 10/01/23 10/18/23 Previous Rx's Medication Instructions Recorded Aspirin 81 mg PO DAILY chew 03/31/18 Acetaminophen Tab [Tylenol] 650 mg PO Q6HR PRN tab 10/03/23 Isosorbide Mononitrate ER [Imdur] 30 mg PO DAILY #30 tab 10/03/23 Loratadine [Claritin] 10 mg PO DAILY #30 tab 10/03/23 Losartan-Hctz 50-12.5 mg [Hyzaar 1 tab PO DAILY #30 tablet 10/03/23 50-12.5] Ranolazine [Ranexa] 500 mg PO Q12HR 30 Days #60 tab 10/03/23 Atorvastatin [Lipitor] 80 mg PO DAILY #90 tab 10/19/23 Clopidogrel [Plavix] 75 mg PO DAILY #90 tab 10/19/23 Nitroglycerin Sl Tabs [Nitrostat] 0.4 mg SUBLINGUAL Q5M PRN #25 tab 10/19/23 Allergies Allergy/AdvReac Type Severity Reaction Status Date / Time atorvastatin AdvReac muscle Verified 10/18/23 07:54 aches/ stiffness Review of Systems ROS Statement: Those systems with pertinent positive or pertinent negative responses have been documented in the HPI. ROS Other: All systems not noted in ROS Statement are negative. Constitutional: Denies: fever, chills, weakness Respiratory: Denies: cough, dyspnea Cardiovascular: Reports: chest pain. Denies: palpitations, orthopnea, edema, syncope Gastrointestinal: Denies: abdominal pain, nausea, vomiting, diarrhea Musculoskeletal: Denies: back pain Skin: Denies: rash Neurological: Denies: headache, weakness, numbness EKG Findings - EKG Results: EKG: interpreted by ERMD, sinus rhythm, normal axis EKG shows: bradycardia (Rate 55 bpm) - Blocks, [place], Hypertrophy, ST Abn: AV and intraventricular conduction: right bundle branch block (fixed/intermittent, complete/incomplete) (Incomplete) Repolarization changes or abnormalities: nonspecific abnormality, ST segment, and/or T wave Past Medical History Past Medical History: Coronary Artery Disease (CAD), Diabetes Mellitus, Eye Disorder, Hyperlipidemia, Hypertension, Osteoarthritis (OA), Sleep Apnea/CPAP/BIPAP Additional Past Medical History / Comment(s): shingles 2002, in past was treated for diabetres but after bariatric sx lost 100# no longer needed insuling and only checks bs occ. no longer needs cpap machine since wt loss. ddd pt stated he had his back stretched by jayson wilson at [employer] in [place]. has the start of macular degeneration-has'nt progressed inpast 3 years. has abrasion lt lower leg. History of Any Multi-Drug Resistant Organisms: None Reported Past Surgical History: Bariatric Surgery, Orthopedic Surgery Additional Past Surgical History / Comment(s): bilcarpel tunnel release,gastric sleeve, alice cataracts, rt foot reconstruction d/t being flat footed. lt knee replacment, rt shoulder replacment, rt hip replacement, lt shoulder rebuilt Past Anesthesia/Blood Transfusion Reactions: No Reported Reaction Past Psychological History: No Psychological Hx Reported Smoking Status: Former smoker Past Alcohol Use History: None Reported Past Drug Use History: None Reported - Past Family History Mother Family Medical History: Dementia Additional Family Medical History / Comment(s): at age 94 -dementia Father Family Medical History: Diabetes Mellitus, Myocardial Infarction (PA) Additional Family Medical History / Comment(s): [place] age 69 from [place] Brother(s) Family Medical History: Diabetes Mellitus Sister(s) Family Medical History: Cancer General Exam Limitations: no limitations General appearance: alert, in no apparent distress Head exam: Present: atraumatic, normocephalic Eye exam: Present: normal appearance. Absent: scleral icterus, conjunctival injection Neck exam: Present: normal inspection Respiratory exam: Present: normal lung sounds bilaterally. Absent: respiratory distress, wheezes, rales, rhonchi, stridor Cardiovascular Exam: Present: regular rate, normal rhythm, normal heart sounds. Absent: systolic murmur, diastolic murmur, rubs, gallop GI/Abdominal exam: Present: soft. Absent: distended, tenderness, guarding, rebound, rigid, mass Extremities exam: Present: normal inspection, normal capillary refill, other (Chronic venous stasis change). Absent: pedal edema, calf tenderness Back exam: Present: normal inspection. Absent: CVA tenderness (R), CVA tenderness (L) Neurological exam: Present: alert Skin exam: Present: warm, dry, intact, normal color, other (Bilateral stasis changes). Absent: rash Course Vital Signs 10/17/23 10/17/23 10/17/23 21:17 21:53 23:32 Temperature 98 F Pulse Rate 55 L 59 L Pulse Rate [ 60 Bilateral Dorsalis Pedis] Respiratory 18 18 Rate Blood Pressure 173/87 156/77 O2 Sat by Pulse 95 99 Oximetry 10/18/23 00:00 Temperature Pulse Rate 59 L Pulse Rate [ Bilateral Dorsalis Pedis] Respiratory 18 Rate Blood Pressure 127/71 O2 Sat by Pulse 97 Oximetry Chest Pain MDM - MDM The patient had chest x-ray which I interpreted as showing mild cardiomegaly, no infiltrate, no congestive heart failure. Was pt. sent in by a medical professional or institution (, [facility], [employer], urgent care, hospital, or shelter...) When possible be specific @ -[No] Did you speak to anyone other than the patient for history (EMS, parent, family, police, friend...)? What history was obtained from this source @ -[No] Did you review nursing and triage notes (agree or disagree)? Why? @ -[I reviewed and agree with nursing and triage notes] Were old charts reviewed (outside hosp., previous admission, EMS record, old EKG, old radiological studies, urgent care reports/EKG's, shelter records)? Report findings @ -[No old charts were reviewed] Differential Diagnosis (chest pain, altered mental status, abdominal pain women, abdominal pain men, vaginal bleeding, weakness, fever, dyspnea, syncope, headache, dizziness, GI bleed, back pain, seizure, CVA, palpatations, mental health, musculoskeletal)? @ -[Differential Chest Pain: Stable Angina, Unstable Angina, STEMI, NSTEMI Aortic Dissection, Pneumothorax, Musculoskeletal, Esophageal Spasm GERD, Cholecystitis, Pancreatitis, Zoster, this is not meant to be an all-inclusive list. EKG interpreted by me (3pts min.). @ -[I interpreted as above X-rays interpreted by me (1pt min.). @ -[I interpreted as above CT interpreted by me (1pt min.). @ -[None done] U/S interpreted by me (1pt. min.). @ -[None done] What testing was considered but not performed or refused? (CT, X-rays, U/S, labs)? Why? @ -[None] What meds were considered but not given or refused? Why? @ -[None] Did you discuss the management of the patient with other professionals (professionals i.e. ANGELIA Murray, MANAGER [employer], lab, RT, psych nurse, social work professor, pump operator, teacher, animal control officer, telephonic nurse case manager)? Give summary @ -[Discussed with admitting physician and treatment recommendations incorporated Was smoking cessation discussed for >3mins.? @ -[No] Was critical care preformed (if so, how long)? @ -[No] Were there social determinants of health that impacted care today? How? (Homelessness, low income, unemployed, alcoholism, drug addiction, transportation, low edu. Level, literacy, decrease access to med. care, [facility], rehab)? @ -[No] Was there de-escalation of care discussed even if they declined (Discuss DNR or withdrawal of care, Hospice)? DNR status @ -[No] What co-morbidities impacted this encounter? (DM, HTN, Smoking, COPD, CAD, Cancer, CVA, ARF, Chemo, Hep., AIDS, mental health diagnosis, sleep apnea, morbid obesity)? @ -[Previous coronary artery disease, hypertension Was patient admitted / discharged? Hospital course, mention meds given and route, prescriptions, significant lab abnormalities, going to OR and other pertinent info. @ -[This patient is an 78-year-old man who presents with chest symptoms following a stress test. The initial workup is unremarkable, but given the symptoms will admit patient to have serial cardiac enzymes, telemetry monitori ng, cardiology consultation Undiagnosed new problem with uncertain prognosis? @ -[No] Drug Therapy requiring intensive monitoring for toxicity (Heparin, Nitro, Insulin, Cardizem)? @ -[No] Were any procedures done? @ -[No] Diagnosis/symptom? @ -Acute chest pain Acute, or Chronic, or Acute on Chronic? @ -[Acute Uncomplicated (without systemic symptoms) or Complicated (systemic symptoms)? @ -[Uncomplicated Side effects of treatment? @ -[No] Exacerbation, Progression, or Severe Exacerbation? @ -[No] Poses a threat to life or bodily function? How? (Chest pain, [place], PA, pneumonia, PE, COPD, DKA, ARF, appy, cholecystitis, CVA, Diverticulitis, Homicidal, Suicidal, threat to staff... and all critical care pts) @ -[Yes Disposition Clinical Impression: Chest pain Disposition: ADMITTED IP TO THIS HOSP Condition: Stable Is patient prescribed a controlled substance at d/c from ED?: No
[2023-10-17 22:00] LABS: ALT 19 U/L (4-49); AST 42 U/L (17-59); African American GFR (CKD) >90 (>60 ml/min/1.73 sqM); Albumin 3.8 g/dL (3.5-5.0); Alkaline Phosphatase 93 U/L (38-126); Anion Gap 7 mmol/L; Blood Urea Nitrogen 29 mg/dL (9-20); Calcium 9.1 mg/dL (8.4-10.2); Carbon Dioxide 27 mmol/L (22-30); Chloride 105 mmol/L (98-107); Glucose 103 mg/dL (74-99); Non-African American GFR(CKD) 81 (>60 ml/min/1.73 sqM); Potassium 4.6 mmol/L (3.5-5.1); Sodium 139 mmol/L (137-145); Total Bilirubin 0.6 mg/dL (0.2-1.3); Total Protein 7.1 g/dL (6.3-8.2)
[2023-10-17] MEDS: ASPIRIN 81 MG PO STA (22:02)
[2023-10-17] MEDS: ENALAPRILAT 1.25 MG/ML 1 ML VIAL IVP STA (22:03)
[2023-10-17 22:08] LABS: Partial Thromboplastin Time 25.8 sec (22.0-30.0); Prothrombin Time 10.9 sec (10.0-12.5)
[2023-10-17 22:17] LABS: HCT 40.1 % (39.0-53.0); HGB 12.9 gm/dL (13.0-17.5); MCH 30.4 pg (25.0-35.0); MCHC 32.1 g/dL (31.0-37.0); MCV 94.7 fL (80.0-100.0); Mean Platelet Volume 8.2; Platelet Count 151 k/uL (150-450); RBC 4.23 m/uL (4.30-5.90); RDW 15.2 % (11.5-15.5); WBC 3.5 k/uL (3.8-10.6)
--- NOTE | 2023-10-17 22:31 | XR ---
EXAMINATION TYPE: XR chest 2V DATE OF EXAM: 10/17/2023 9:49 PM CLINICAL INDICATION:Male, 78 years old with history of Chest Pain; [facility] COMPARISON: Chest radiographs from 10/01/2023 TECHNIQUE: XR chest 2V Frontal and lateral views of the chest. FINDINGS: Lungs/Pleura: There is no evidence of pleural effusion, focal consolidation, or pneumothorax. Pulmonary vascularity: Unremarkable. Heart/mediastinum: Cardiomediastinal silhouette is prominent in size. Atherosclerotic calcifications are seen in the aorta. Musculoskeletal: No acute osseous pathology. Reverse shoulder arthroplasty changes appear intact. IMPRESSION: No acute cardiopulmonary disease/process.
[2023-10-17 22:49] LABS: Eosinophils # (M) 0.21 k/uL (0-0.7); Monocytes # (M) 0.46 k/uL (0-1.0); Neutrophils # (M) 2.14 k/uL (1.3-7.7); Neutrophils % (M) 61 %; Nucleated Red Blood Cells 0 /100 WBC (0-0); Total Cells Counted 100
[2023-10-17] MEDS ORDERED: NITROGLYCERIN SL TABS 0.4 MG TAB SUBLINGUAL PRN (23:12)
[2023-10-18] MEDS: LOSARTAN-HCTZ 50-12.5 MG 1 EACH TAB PO SCH (01:41)
[2023-10-18] MEDS: RANOLAZINE 500 MG TAB.ER.12H PO SCH (08:17)
[2023-10-18] MEDS: ISOSORBIDE MONONITRATE ER 30 MG TAB.ER.24H PO SCH (08:18)
[2023-10-18] MEDS: ASPIRIN 325 MG TAB PO SCH (08:18)
[2023-10-18] MEDS: ASPIRIN 81 MG PO SCH (08:30)
[2023-10-18] MEDS: HYDROcodone/APAP 7.5-325MG 1 EACH TAB PO PRN (08:31)
[2023-10-18 09:09] LABS: Chol/HDL Ratio 2.91 Ratio; LDL Cholesterol,Calculated 63.7 mg/dL (0.0-131.0); VLDL Calculation 17.14 mg/dL (5.00-40.00)
--- NOTE | 2023-10-18 10:04 | P.CRDCN ---
History of Present Illness Consult date: 10/18/23 Consult reason: chest pain History of present illness: History of present illness: This is an 78-year-old male patient of Dr. Burkett with past medical history of hypertension, dyslipidemia, remote history of tobacco use, coronary artery disease, peripheral artery disease, venous insufficiency. We have been asked to evaluate the patient for chest pain. Patient was recently in the office on 10/[address] Burkett at that time it was a follow-up from a hospital visit at which time he presented for chest pain. Patient was discharged from the hospital at that time on Ranexa and Imdur. Patient was set up for Lexiscan stress test yesterday which he completed. Patient was feeling fine until about 4 hours after the test he was developing chest pain. He does relate that he did not take his medications prior to the stress test and were taken later in the day. He states he also had some shortness of breath and felt flushed during the test. He did not have any chest pain while he was under testing. He states his blood pressure was high in the day running at 170. He now does not have any chest pain. He feels tired. EKG sinus rhythm with first-degree AV block. Telemetry sinus rhythm bradycardic in the 50s and 60s with PVCs. Chest x-ray: No acute process WBC 3.5, hemoglobin 12.9, platelet count 151. INR 2.0. Electrolytes are normal. BUN 29 creatinine 0.89. Troponin negative x 2. Triglycerides 85, cholesterol 123, LDL 63, HDL 42. Liver function test are normal. Magnesium 2. Home cardiac medications: Aspirin 81 mg daily, Imdur 30 mg daily, losartan hydrochlorothiazide 50-12.5 mg 1 daily, Ranexa 500 mg every 12 hours, Crestor 40 mg daily. Echocardiogram performed 10/02/2023 reveals EF of 40 to 45%, technically difficult study for interpretation. Poorly visualized intracardiac valves. Lexiscan Cardiolite stress test performed 11/11/2022 revealed nondiagnostic electrocardiographic stress testing. Abnormal myocardial perfusion imaging with fixed inferior and inferior apical wall and hypokinesis of the apex suggestive of prior ID involving the inferior apical wall and soft tissue attenuation in the inferior wall. No evidence of stress-induced ischemia. Review Of Systems: At the time of my exam: CONSTITUTIONAL: Denies fever or chills. HEENT: Denies blurred vision, vision changes, or eye pain. Denies hemoptysis CARDIOVASCULAR: Denies chest pain. Denies orthopnea. Denies PND. Denies palpitations RESPIRATORY: Denies shortness of breath. GASTROINTESTINAL: Denies abdominal pain. Denies nausea or vomiting. HEMATOLOGIC: Denies bleeding disorders. GENITOURINARY: Denies any blood in urine. SKIN: Denies pruitis. Denies rash. Physical examination: Gen: This is an 86-year-old male resting in bed in no acute distress VS: reviewed HEENT: Head is atraumatic, normocephalic. Pupils equal, round. Sclerae is a nicteric. NECK: Supple. No JVD. LUNGS: Clear to auscultation. No wheezes or rhonchi. No intercostal retractions. HEART: Irregular rate and rhythm. 2/6 systolic ejection murmur at the base. ABDOMEN: Soft No tenderness. EXTREMITIES: No pedal edema. No calf tenderness. NEUROLOGICAL: Patient is awake, alert and oriented x3. Assessment: Chest pain, acute coronary syndrome ruled out with negative troponins History of coronary artery disease Chronic angina Cardiomyopathy with EF of 40 to 45% Valvular heart disease with mild AR, mild MR, mild TR Hypertension Dyslipidemia Peripheral artery disease Venous insufficiency Remote history of tobacco use Plan: Resume patient's home cardiac medications Will obtain stress test reports from [facility] office May consider Holter monitor to determine PVC burden No need to repeat echocardiogram Further recommendations to follow based upon clinical course Thank you kindly for this consultation. Nurse practitioner note has been reviewed, I agree with documented findings and plan of care. Patient was seen and examined. Past Medical History Past Medical History: Coronary Artery Disease (CAD), Diabetes Mellitus, Eye Disorder, Hyperlipidemia, Hypertension, Osteoarthritis (OA), Sleep Apnea/CPAP /BIPAP Additional Past Medical History / Comment(s): shingles 2002, in past was treated for diabetres but after bariatric sx lost 100# no longer needed insuling and only checks bs occ. no longer needs cpap machine since wt loss. ddd pt stated he had his back stretched by jayson wilson at [facility] in [place]. has the start of macular degeneration-has'nt progressed inpast 3 years. has abrasion lt lower leg. History of Any Multi-Drug Resistant Organisms: None Reported Past Surgical History: Bariatric Surgery, Orthopedic Surgery Additional Past Surgical History / Comment(s): bilcarpel tunnel release,gastric sleeve, alice cataracts, rt foot reconstruction d/t being flat footed. lt knee replacment, rt shoulder replacment, rt hip replacement, lt shoulder rebuilt Past Anesthesia/Blood Transfusion Reactions: No Reported Reaction Past Psychological History: No Psychological Hx Reported Smoking Status: Former smoker Past Alcohol Use History: None Reported Additional Past Alcohol Use History / Comment(s): started smoking age 18 and quit age 33 smoked a pipe. no alcohol use now. Past Drug Use History: None Reported - Past Family History Mother Family Medical History: Dementia Additional Family Medical History / Comment(s): at age 94 -dementia Father Family Medical History: Diabetes Mellitus, Myocardial Infarction (ID) Additional Family Medical History / Comment(s): at age 69 from [place] Brother(s) Family Medical History: Diabetes Mellitus Sister(s) Family Medical History: Cancer Medications and Allergies Home Medications Medication Instructions Recorded Confirmed Type Calcium Carbonate [Calcium] 600 mg PO DAILY 03/28/18 10/18/23 History Multivitamins, Thera [Multivitamin 1 tab PO DAILY 03/28/18 10/18/23 History (formulary)] Aspirin 81 mg PO DAILY chew 03/31/18 10/18/23 Rx Meloxicam [Mobic] 15 mg PO DAILY 02/14/19 10/18/23 History Rosuvastatin Calcium [Crestor] 40 mg PO DAILY 02/14/19 10/18/23 History Triamcinolone 0.1% Cream [Kenalog 1 applicatio TOPICAL BID 02/14/19 10/18/23 History 0.1% Cream] Clotrimazole Cream [Lotrimin Cream] 1 applic TOPICAL BID 10/01/23 10/18/23 History HYDROcodone/APAP 7.5-325MG [Stella 1 tab PO TID PRN 10/01/23 10/18/23 History 7.5-325] Turmeric Root Extract [Turmeric] 500 mg PO DAILY 10/01/23 10/18/23 History Acetaminophen Tab [Tylenol] 650 mg PO Q6HR PRN tab 10/03/23 10/18/23 Rx Isosorbide Mononitrate ER [Imdur] 30 mg PO DAILY #30 tab 10/03/23 10/18/23 Rx Loratadine [Claritin] 10 mg PO DAILY #30 tab 10/03/23 10/18/23 Rx Losartan-Hctz 50-12.5 mg [Hyzaar 1 tab PO DAILY #30 tablet 10/03/23 10/18/23 Rx 50-12.5] Ranolazine [Ranexa] 500 mg PO Q12HR 30 Days #60 tab 10/03/23 10/18/23 Rx Allergies Allergy/AdvReac Type Severity Reaction Status Date / Time atorvastatin AdvReac muscle Verified 10/18/23 07:54 aches/ stiffness Physical Exam Vitals: Vital Signs Temp Pulse Pulse Resp BP BP Pulse Ox 10/18/23 01:39 68 14 121/61 97 10/18/23 01:04 20 10/18/23 00:39 98.0 F 55 L 18 176/76 95 10/18/23 00:00 59 L 18 127/71 97 10/17/23 23:32 59 L 18 156/77 99 10/17/23 21:53 60 10/17/23 21:17 98 F 55 L 18 173/87 95 Intake and Output 10/17/23 10/18/23 10/18/23 22:59 06:59 14:59 Intake Total 480 Balance 480 Intake: Oral 480 Other: Voiding Method Toilet # Voids 2 Weight 127.006 kg 127.006 kg Results 10/17/23 21:40 10/17/23 21:40 Cardiac Enzymes 10/17/23 10/17/23 10/18/23 Range/Units 21:40 21:40 03:07 AST 42 (17-59) U/L Troponin I <0.012 <0.012 (0.000-0.034) ng/mL Coagulation 10/17/23 Range/Units 21:40 PT 10.9 (10.0-12.5) sec APTT 25.8 (22.0-30.0) sec CBC 10/17/23 Range/Units 21:40 WBC 3.5 L (3.8-10.6) k/uL RBC 4.23 L (4.30-5.90) m/uL Hgb 12.9 L (13.0-17.5) gm/dL Hct 40.1 (39.0-53.0) % Plt Count 151 (150-450) k/uL Comprehensive Metabolic Panel 10/17/23 Range/Units 21:40 Sodium 139 (137-145) mmol/L Potassium 4.6 (3.5-5.1) mmol/L Chloride 105 (98-107) mmol/L Carbon Dioxide 27 (22-30) mmol/L BUN 29 H (9-20) mg/dL Creatinine 0.89 (0.66-1.25) mg/dL Glucose 103 H (74-99) mg/dL Calcium 9.1 (8.4-10.2) mg/dL AST 42 (17-59) U/L ALT 19 (4-49) U/L Alkaline Phosphatase 93 (38-126) U/L Total Protein 7.1 (6.3-8.2) g/dL Albumin 3.8 (3.5-5.0) g/dL Current Medications Generic Name Dose Route Start Last Admin Trade Name Freq PRN Reason Stop Dose Admin Acetaminophen 650 mg 10/18/23 01:26 Acetaminophen Tab 325 Mg Tab PO Q6HR PRN Fever and/ or Pain Hydrocodone Bitart/Acetaminophen 1 each 10/18/23 01:26 Hydrocodone/Apap 7.5-325mg 1 Each Tab PO TID PRN Pain Aspirin 325 mg 10/18/23 09:00 Aspirin 325 Mg Tab PO DAILY MERLYN HCTZ/Losartan Potassium 1 each 10/18/23 01:30 10/18/23 01:41 Losartan-Hctz 50-12.5 Mg 1 Each Tab PO Not Given DAILY MERLYN Isosorbide Mononitrate 30 mg 10/18/23 09:00 Isosorbide Mononitrate Er 30 Mg Tab.Er.24h PO DAILY MELRYN Nitroglycerin 0.4 mg 10/17/23 23:12 Nitroglycerin Sl Tabs 0.4 Mg Tab SUBLINGUAL Q5M PRN Chest Pain Non-Formulary Medication 40 mg 10/18/23 09:00 Rosuvastatin Calcium [Crestor] PO DAILY MERLYN Ranolazine 500 mg 10/18/23 09:00 Ranolazine 500 Mg Tab.Er.12h PO Q12HR MERLYN Sodium Chloride 10 ml 10/18/23 09:00 Sodium Chloride 0.9% Flush 10 Ml Syringe IV BID MERLYN Intake and Output 10/17/23 10/18/23 10/18/23 22:59 06:59 14:59 Intake Total 480 Balance 480 Intake: Oral 480 Other: Voiding Method Toilet # Voids 2 Weight 127.006 kg 127.006 kg 10/17/23 21:40 10/17/23 21:40
[2023-10-18] MEDS ORDERED: ASPIRIN 325 MG TAB PO STA (10:38)
[2023-10-18] MEDS ORDERED: ALPRAZolam 0.5 MG TAB PO PRN (10:38)
[2023-10-18] MEDS ORDERED: NITROGLYCERIN SL TABS 0.4 MG TAB SUBLINGUAL PRN ×2 (10:38→13:38)
[2023-10-18] MEDS ORDERED: ALPRAZolam 0.25 MG TAB PO PRN (10:38)
[2023-10-18] MEDS: ATORVASTATIN 80 MG TAB PO STA (11:13)
[2023-10-18] MEDS: SODIUM CHLORIDE 0.9% 1,000 ML in EMPTY BAG 1 BAG IV ONE (11:13)
[2023-10-18] MEDS: NON FORMULARY DRUG (Rosuvastatin Calcium [Crestor] 40 MG Tablet) PO SCH (12:01)
--- NOTE | 2023-10-18 12:10 | P.HPIM ---
History of Present Illness H&P Date: 10/18/23 Chief Complaint: Chest pain Patient is a 78-year-old male 78-year-old male with a past medical history of coronary artery disease with prior cardiac catheterization, no PCI due to difficult location, diabetes type 2 improved after bariatric surgery, hypertension, obstructive sleep apnea not on CPAP, prior history of smoking presents to ER with complaints of chest pain. 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 Associated with lightheadedness. No nausea or vomiting. No radiation of the pain. His face felt flushed at the time. Patient presented to ER for further evaluation. P denies any cough or sputum production. No shortness of breath. No headache. Patient did not take his morning medications due to schedule test. On admission blood pressure was 173/87 pulse 55 respiration 18 and pulse ox 90% on room air. Chest x-ray showed no acute cardiopulmonary process. EKG showed sinus bradycardia with heart rate 55 and incomplete right bundle branch block. Laboratory data showed WBC 3.5 hemoglobin 12.9 and platelets 151 Sodium 139 potassium 4.6 chloride 105 bicarb is 27 BUN 29 and creatinine 0.89 and blood sugar 103 and troponin x 2 negative and magnesium 2.0 liver enzymes are not elevated. Review of Systems Constitutional: Patient denies any fever or chills . No generalized weakness or weight loss. Abdomen: Patient denied nausea vomiting and diarrhea and abdominal pain. Cardiovascular: Patient denies any chest pain or short of breath no palpitations. Respiratory: patient denied any cough is from production. No shortness of breath Neurologic: Patient denied any numbness or tingling headache. Musculoskeletal: Patient denies any complaints of joint swelling or deformity. Skin: Negative Psychiatric: Negative Endocrine: No heat or cold intolerance. No recent weight gain. Genitourinary: No dysuria or hematuria. All other 14 point ROS negative except the above Past Medical History Past Medical History: Coronary Artery Disease (CAD), Diabetes Mellitus, Eye Disorder, Hyperlipidemia, Hypertension, Osteoarthritis (OA), Sleep Apnea/CPAP/BIPAP Additional Past Medical History / Comment(s): tammie 2002, in past was treated for diabetres but after bariatric sx lost 100# no longer needed insuling and only checks bs occ. no longer needs cpap machine since wt loss. ddd pt stated he had his back stretched by jayson wilson at [facility] in [place]. has the start of macular degeneration-has'nt progressed inpast 3 years. has abrasion lt lower leg. History of Any Multi-Drug Resistant Organisms: None Reported Past Surgical History: Bariatric Surgery, Orthopedic Surgery Additional Past Surgical History / Comment(s): bilcarpel tunnel release,gastric sleeve, alice cataracts, rt foot reconstruction d/t being flat footed. lt knee replacment, rt shoulder replacment, rt hip replacement, lt shoulder rebuilt Past Anesthesia/Blood Transfusion Reactions: No Reported Reaction Past Psychological History: No Psychological Hx Reported Smoking Status: Former smoker Past Alcohol Use History: None Reported Additional Past Alcohol Use History / Comment(s): started smoking age 18 and quit age 33 smoked a pipe. no alcohol use now. Past Drug Use History: None Reported - Past Family History Mother Family Medical History: Dementia Additional Family Medical History / Comment(s): at age 94 -dementia Father Family Medical History: Diabetes Mellitus, Myocardial Infarction (SD) Additional Family Medical History / Comment(s): at age 69 from [place] Brother(s) Family Medical History: Diabetes Mellitus Sister(s) Family Medical History: Cancer Medications and Allergies Home Medications Medication Instructions Recorded Confirmed Type Calcium Carbonate [Calcium] 600 mg PO DAILY 03/28/18 10/18/23 History Multivitamins, Thera [Multivitamin 1 tab PO DAILY 03/28/18 10/18/23 History (formulary)] Aspirin 81 mg PO DAILY chew 03/31/18 10/18/23 Rx Meloxicam [Mobic] 15 mg PO DAILY 02/14/19 10/18/23 History Triamcinolone 0.1% Cream [Kenalog 1 applicatio TOPICAL BID 02/14/19 10/18/23 H istory 0.1% Cream] Clotrimazole Cream [Lotrimin Cream] 1 applic TOPICAL BID 10/01/23 10/18/23 History HYDROcodone/APAP 7.5-325MG [Linn 1 tab PO TID PRN 10/01/23 10/18/23 History 7.5-325] Turmeric Root Extract [Turmeric] 500 mg PO DAILY 10/01/23 10/18/23 History Acetaminophen Tab [Tylenol] 650 mg PO Q6HR PRN tab 10/03/23 10/18/23 Rx Isosorbide Mononitrate ER [Imdur] 30 mg PO DAILY #30 tab 10/03/23 10/18/23 Rx Loratadine [Claritin] 10 mg PO DAILY #30 tab 10/03/23 10/18/23 Rx Losartan-Hctz 50-12.5 mg [Hyzaar 1 tab PO DAILY #30 tablet 10/03/23 10/18/23 Rx 50-12.5] Ranolazine [Ranexa] 500 mg PO Q12HR 30 Days #60 tab 10/03/23 10/18/23 Rx Atorvastatin [Lipitor] 80 mg PO DAILY #90 tab 10/19/23 Rx Clopidogrel [Plavix] 75 mg PO DAILY #90 tab 10/19/23 Rx Nitroglycerin Sl Tabs [Nitrostat] 0.4 mg SUBLINGUAL Q5M PRN #25 tab 10/19/23 Rx Allergies Allergy/AdvReac Type Severity Reaction Status Date / Time atorvastatin AdvReac muscle Verified 10/18/23 07:54 aches/ stiffness Physical Exam Vitals: Vital Signs Temp Pulse Pulse Pulse Resp BP BP 10/18/23 08:30 10/18/23 07:05 97.5 F L 59 L 17 152/79 10/18/23 01:39 68 14 121/61 10/18/23 01:04 20 10/18/23 00:39 98.0 F 55 L 18 176/76 10/18/23 00:00 59 L 18 127/71 10/17/23 23:32 59 L 18 156/77 10/17/23 21:53 60 10/17/23 21:17 98 F 55 L 18 173/87 Pulse Ox 10/18/23 08:30 91 L 10/18/23 07:05 10/18/23 01:39 97 10/18/23 01:04 10/18/23 00:39 95 10/18/23 00:00 97 10/17/23 23:32 99 10/17/23 21:53 10/17/23 21:17 95 Intake and Output 10/17/23 10/18/23 10/18/23 22:59 06:59 14:59 Intake Total 480 Balance 480 Intake: Oral 480 Other: Voiding Method Toilet # Voids 2 Weight 127.006 kg 127.006 kg PHYSICAL EXAMINATION: Patient is lying in the bed comfortably, no acute distress, awake alert and oriented.. HEENT: Normocephalic. Neck is supple. Pupils reactive. Nostrils clear. Oral cavity is moist. Neck reveals no JVD, carotid bruits, or thyromegaly. CHEST EXAMINATION: Trachea is central. Symmetrical expansion. Lung zamora clear to auscultation and percussion. CARDIAC: Normal S1, S2 with no gallops. No murmurs ABDOMEN: Soft. Bowel sounds normal. No organomegaly. No abdominal bruits. Extremities: Bilateral lower extremity trace edema with skin discoloration and superficial wounds. No drainage noted.. No clubbing or cyanosis Neurologically awake, alert, oriented x3 with well-coordinated movements. No focal deficits noted Skin: No rash or skin lesions. Psychiatric: Coperative. Nonsuicidal Musculoskeletal: No joint swelling or deformity. Normal range of motion. Results CBC & Chem 7: 10/17/23 21:40 10/19/23 06:03 Labs: Abnormal Lab Results - Last 24 Hours (Table) 10/17/23 10/17/23 Range/Units 21:40 21:40 WBC 3.5 L (3.8-10.6) k/uL RBC 4.23 L (4.30-5.90) m/uL Hgb 12.9 L (13.0-17.5) gm/dL Lymphocytes # (Manual) 0.70 L (1.0-4.8) k/uL BUN 29 H (9-20) mg/dL Glucose 103 H (74-99) mg/dL Thrombosis Risk Factor Assmnt - DVT/VTE Prophylaxis DVT/VTE Prophylaxis: Pharmacologic Prophylaxis ordered - Choose All That Apply Any of the Below Risk Factors Present?: Yes Each Factor Represents 1 point: Obesity (BMI >25), Swollen legs (current) Other Risk Factors: Yes Each Risk Factor Represents 3 Points: Age 75 years or older Thrombosis Risk Factor Assessment Total Risk Factor Score: 5 Thrombosis Risk Factor Assessment Level: High Risk Assessment and Plan Assessment: Chest pain possible cardiac. Ruled out ACS. 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 Coronary artery disease no prior history of PCI Cardiomyopathy ejection fraction 40 to 45% Valvular heart disease with mild MR, TR and AR. unControlled hypertension History of diabetes type 2 improved after bariatric surgery Hyperlipidemia Peripheral vascular disease Chronic venous insufficiency Prior history of smoking Morbid obesity with BMI 45.2 Obstructive sleep apnea not on CPAP currently Plan: Patient will be continued on telemetry monitoring. Serial EKG and troponin x 2 negative. Start back on home blood pressure medications and titrate dose as needed. Continue with aspirin and statins. Cardiology was consulted for evaluation and is planning for catheterization today. Continue to follow closely. Currently patient denies any complaints of chest pain . Time with Patient: Greater than 30
[2023-10-18] MEDS: IV FLUID CONTINUATION 1,000 ML IV ONE (12:36)
[2023-10-18] MEDS: VERAPAMIL SYRINGE (5 MG/10 ML) INTRAARTER ONE (12:36)
[2023-10-18] MEDS: LIDOCAINE 1% INJ 10MG/ML (30 ML VIAL-PF) SQ ONE (12:36)
[2023-10-18] MEDS: fentaNYL (PF) 50 MCG/1 ML VIAL IVP ONE (12:36)
[2023-10-18] MEDS: HEPARIN SODIUM 1,000 UN/ML (10ML VL) IVP ONE (12:39)
[2023-10-18] MEDS: NITROGLYCERIN 1000MCG/10ML SYRINGE INTRACORON ONE (13:10)
[2023-10-18] MEDS: CLOPIDOGREL 75 MG TAB PO ONE (13:10)
[2023-10-18] MEDS: IOPAMIDOL-370 100ML BTL INJ ONE ×2 (13:16→13:18)
[2023-10-18] MEDS ORDERED: ATROPINE SULFATE 0.1 MG/ML 10ML SYRINGE IV PRN (13:38)
[2023-10-18] MEDS ORDERED: RX INFO: IV CONTRAST WAS GIVEN 1 EACH MISC MISCELLANE PRN (13:38)
[2023-10-18] MEDS ORDERED: ZOLPIDEM 5 MG TAB PO PRN (13:38)
[2023-10-18] MEDS ORDERED: MAG HYDROX/AL HYDROX/SIMETH 30 ML CUP PO PRN (13:38)
--- NOTE | 2023-10-18 13:48 | P.CARDCATH ---
Date of Procedure: 10/18/23 Description of Procedure: Cardiac Catheterization: The patient is an 78-year-old male with a known history of CAD, status post angioplasty of the proximal left circumflex, hypertension and hyperlipidemia who presented with symptoms of chest discomfort. He had an abnormal MPI. He had no evidence of myocardial infarction on presentation. Recommendations were made regarding cardiac catheterization, the risks and the complications were discussed with the patient who is in full understanding and agreement. Procedure Description: Patient was brought to [facility]lab [facility] in fasting semi-sedated state after receiving Fentanyl and Benadryl achieiving moderate conscious sedated state. Using Xylocaine Anesthesia and modified Seldinger technique, a 6-Mexican sheath was introduced in the right radial artery . Subsequently, selective coronary angiography was performed using a 5-Mexican 3.5 bend Abhijit catheter. Multiple views of the coronary artery including hemiaxial views were obtained. The 5 Mexican pigtail catheter was used to cross the aortic valve and LVEDP was calculated. PCI: After removing the catheters a 6 Mexican EBU 3.75 guiding catheter was introduced and after cannulating the left main and Omni Doppler flow wire was positioned in the LAD. iFR across the proximal mid lesion was performed and was calculated at 1.00 subsequently the IFR was calculated across the mid distal lesion and was 0.82. At that point a 2.5 x 12 mm NC trek balloon was advanced and 2 inflation in the mid segment at 8 messi were done. Attempt to advance a [place] eye IVUS was unsuccessful proximally because of the severe calcification. The catheter was removed and a 3.0 x 18 mm Xience marsha point was deployed across the mid distal lesion at 16 messi. After removing the balloon IFR was remeasured at 0.97 across the distal lesion and remeasured across the proximal mid lesion and was normal as well. After removing the wire images were obtained and revealed stable successful stenting. Following that, catheter and sheath were removed. Hemostasis was obtained with deployment of vascular band . There was no i mmediate complication. Patient was returned to room in stable condition. Of note, the patient received a total of 8000 units of intravenous heparin as well as intra-arterial verapamil. He received an oral loading dose of clopidogrel. His ACT was followed. He had no significant chest discomfort or EKG changes with the inflations. Findings: Fluoroscopy: Severe calcifications of all the coronary arteries was noted Left main: This is a large size vessel, bifurcating into LAD and left circumflex, left main has 10% plaque distally with no high-grade stenosis. LAD: This is a large size vessel, giving rise to 3 diagonal branch. The vessel reaches to the apex with a wraparound apex segment. In the proximal mid segment at the takeoff of the first 2 diagonal branch there is a tubular lesion of 50 to 60% plaque. In the midsegment at the takeoff of the third diagonal branch there is a 70% lesion, the rest of the vessel has no high-grade stenosis l Left circumflex: This is a nondominant vessel, large in caliber giving rise to a large obtuse marginal branch. The proximal left circumflex has a 30% to 40% plaque. The proximal segment of the obtuse marginal branch has a 50% plaque at the site of the prior angioplasty. The rest of the vessel has no high-grade stenosis. RCA: This is a large dominant vessel, bifurcating into PDA and PLV. The mid RCA has a tubular lesion of 30%. Prior to the bifurcation of the PDA and the PLV there is a 40 to 50% plaque. Left Ventriculogram: Not performed Hemodynamics: There was no gradient across the aortic valve, LVEDP was 16-22 mmHg Conclusion: 1. Calcified coronary arteries 2. Hemodynamically significant mid distal LAD lesion with nonhemodynamically significant proximal mid LAD lesion by IFR 3. Moderate disease at the site of the prior stenting of the OM 4. Mild disease in the RCA 5. Successful stenting of the mid distal LAD with a reduction of stenosis from 70% to less than 5% Recommendations: The patient will continue on aspirin and Plavix without any interruption for 6 months in addition to aggressive coronary risks modification including maintaining LDL below 70 mg/dL. The findings and the recommendations were discussed with the patient and the family and they were in full understanding and agreement. Duration of sedation is 49 minutes.
[2023-10-18] MEDS: SODIUM CHLORIDE 0.9% 1,000 ML in EMPTY BAG 1 BAG IV SCH (17:04)
[2023-10-18] MEDS: ACETAMINOPHEN TAB 325 MG TAB PO PRN (20:00)
[2023-10-19] MEDS ORDERED: HEPARIN SODIUM,PORCINE (1 ML) 2,500 UNIT in SODIUM CHLORIDE 0.9% 250 ML IRRIGATION PRN (07:00)
[2023-10-19] MEDS ORDERED: HEPARIN SODIUM,PORCINE 10,000 UNIT in SODIUM CHLORIDE 0.9% 1,000 ML IRRIGATION PRN (07:00)
[2023-10-19 07:12] LABS: African American GFR (CKD) >90 (>60 ml/min/1.73 sqM); Anion Gap 10 mmol/L; Blood Urea Nitrogen 21 mg/dL (9-20); Calcium 9.4 mg/dL (8.4-10.2); Carbon Dioxide 26 mmol/L (22-30); Chloride 104 mmol/L (98-107); Glucose 100 mg/dL (74-99); Non-African American GFR(CKD) 82 (>60 ml/min/1.73 sqM); Potassium 4.1 mmol/L (3.5-5.1); Sodium 140 mmol/L (137-145)
[2023-10-19] MEDS: CLOPIDOGREL 75 MG TAB PO SCH (07:49)
[2023-10-19] MEDS: ATORVASTATIN 80 MG TAB PO SCH (07:50)
[2023-10-19 08:18] VITALS: BP 167/81; PULSE 59; RESP 17; TEMP 98.1
--- NOTE | 2023-10-19 09:24 | P.PN ---
Subjective Progress Note Date: 10/19/23 Consult reason: chest pain History of present illness: History of present illness: This is an 78-year-old male patient of Dr. Burkett with past medical history of hypertension, dyslipidemia, remote history of tobacco use, coronary artery disease, peripheral artery disease, venous insufficiency. We have been asked to evaluate the patient for chest pain. Patient was recently in the office on 10/[address] Burkett at that time it was a follow-up from a hospital visit at which time he presented for chest pain. Patient was discharged from the [facility] at that time on Ranexa and Imdur. Patient was set up for Lexiscan stress test yesterday which he completed. Patient was feeling fine until about 4 hours after the test he was developing chest pain. He does relate that he did not take his medications prior to the stress test and were taken later in the day. He states he also had some shortness of breath and felt flushed during the test. He did not have any chest pain while he was under testing. He states his blood pressure was high in the day running at 170. He now does not have any chest pain. He feels tired. EKG sinus rhythm with first-degree AV block. Telemetry sinus rhythm bradycardic in the 50s and 60s with PVCs. Chest x-ray: No acute process WBC 3.5, hemoglobin 12.9, platelet count 151. INR 2.0. Electrolytes are normal. BUN 29 creatinine 0.89. Troponin negative x 2. Triglycerides 85, cholesterol 123, LDL 63, HDL 42. Liver function test are normal. Magnesium 2. Home cardiac medications: Aspirin 81 mg daily, Imdur 30 mg daily, losartan hydrochlorothiazide 50-12.5 mg 1 daily, Ranexa 500 mg every 12 hours, Crestor 40 mg daily. Echocardiogram performed 10/02/2023 reveals EF of 40 to 45%, technically difficult study for interpretation. Poorly visualized intracardiac valves. Lexiscan Cardiolite stress test performed 11/11/2022 revealed nondiagnostic electrocardiographic stress testing. Abnormal myocardial perfusion imaging with fixed inferior and inferior apical wall and hypokinesis of the apex suggestive of prior VA involving the inferior apical wall and soft tissue attenuation in the inferior wall. No evidence of stress-induced ischemia. 10/18 Yesterday, patient underwent cardiac catheterization with Dr. Hodge which revealed calcified coronary arteries. Hemodynamically significant mid distal LAD lesion with 9 hemodynamically significant proximal mid LAD lesion by IFR. Moderate disease at the site of the prior stenting of the OM. Mild disease in the RCA. Patient underwent successful stenting of the mid distal LAD with reduction of stenosis from 70 to 5%. Patient states he is chest pain-free. No shortness of breath. Wrist has a good pulse with no sign of hematoma. Blood pressure this morning prior to medications 167/81, heart rate 59, pulse ox 93% on 2 L nasal cannula. Physical examination: Gen: This is an 86-year-old male resting in bed in no acute distress VS: reviewed HEENT: Head is atraumatic, normocephalic. Pupils equal, round. Sclerae is anicteric. LUNGS: Clear to auscultation. No wheezes or rhonchi. No intercostal retractions. HEART: Irregular rate and rhythm. 2/6 systolic ejection murmur at the base. EXTREMITIES: No pedal edema. No calf tenderness. NEUROLOGICAL: Patient is awake, alert and oriented x3. Assessment: Chest pain, secondary to coronary artery disease status post stent of the LAD History of coronary artery disease Chronic angina Cardiomyopathy with EF of 40 to 45% Valvular heart disease with mild AR, mild MR, mild TR Hypertension Dyslipidemia Peripheral artery disease Venous insufficiency Remote history of tobacco use Plan: Continue patient's home cardiac medications New prescriptions have been sent to his pharmacy for Plavix and aspirin and a atorvastatin 80 mg No BB due to bradycardia Patient is cleared for discharge from cardiology and may follow-up with Dr. Burkett in 1 week in the office. Nurse practitioner note has been reviewed, I agree with documented findings and plan of care. Patient was seen and examined. Objective - Vital Signs Vital signs: Vital Signs Temp 97.9 F 10/19/23 02:00 Pulse 52 L 10/19/23 02:00 Resp 20 10/19/23 02:00 BP 136/80 10/19/23 02:00 Pulse Ox 92 L 10/19/23 02:00 FiO2 Intake & Output 10/18/23 10/19/23 10/19/23 18:59 06:59 18:59 Intake Total 300 Balance 300 Intake: IV 300 Other: Voiding Method Toilet Toilet # Voids 3 1 - Labs CBC & Chem 7: 10/17/23 21:40 10/19/23 06:03
[2023-10-19 12:15] VITALS: BMI 45.1
--- NOTE | 2023-10-22 11:05 | P.DS ---
Providers Date of admission: 10/19/23 07:17 Expected date of discharge: 10/19/23 Attending physician: Norberto Dubois Consults: 10/17/23 23:12 Consult Physician Routine Consulting Provider: Awais Drake Consult Reason/Comments: chest pain Do you want consulting provider notified?: Yes 10/18/23 13:38 Consult Physician Routine Consulting Provider: [facility] Consult Reason/Comments: Post Interventional Patient Do you want consulting provider notified?: Already Contacted Primary care physician: Rg Linton [facility] Course: Final diagnosis Chest pain . Ruled out ACS. Patient had stress test at [facility] office. Status postcardiac catheterization with stenting to the mid distal LAD Coronary artery disease no prior history of PCI Cardiomyopathy ejection fraction 40 to 45% Valvular heart disease with mild MR, TR and AR. Controlled hypertension History of diabetes type 2 improved after bariatric surgery Hyperlipidemia Peripheral vascular disease Chronic venous insufficiency Prior history of smoking Morbid obesity with BMI 45.2 Obstructive sleep apnea not on CPAP currently Discharge disposition Patient is being discharged in a stable condition with guarded prognosis to home. Patient will follow-up with Dr. Rg Linton in the outpatient setting upon discharge. Patient is to continue with aspirin and Plavix indefinitely for 6 follow-up with cardiology. Total time taken is greater than 35 minutes. Hospital course This is a 78-year-old male who was recently admitted with chest pain. Patient evaluated by cardiology underwent cardiac catheterization status post stenting to the mid distal LAD. Patient to continue with maximizing medical management and close outpatient follow-up with cardiology. Patient reports to feeling im proved and would like to go home. Patient has been cleared by cardiology. Please refer to cardiology notes for further HPI. Patient has been instructed to continue with aspirin and Plavix for 6 months. Currently no reports of chest pain, shortness of breath, or palpitations. Patient is afebrile. No reports of nausea or vomiting and patient is tolerating diet. Patient will be discharged home today with guarded prognosis. Physical exam: Gen: This is a 78-year-old male who is awake, alert and oriented x 3, well- developed, well-nourished, morbidly obese HEENT: Head is atraumatic, normocephalic. Pupils equal, round. Sclerae is anicteric. NECK: Supple. No JVD. No lymphadenopathy. No thyromegaly. LUNGS: Diminished breath sounds bilaterally otherwise clear to auscultation. No wheezes or rhonchi. No intercostal retractions. HEART: Regular rate and rhythm. No murmur. ABDOMEN: Soft. Obese. Bowel sounds are present. No masses. No tenderness. EXTREMITIES: No pedal edema. No calf tenderness. NEUROLOGICAL: Patient is awake, alert and oriented x3. Cranial nerves 2 through 12 are grossly intact. Please refer to medication reconciliation sheet for a list of medications. The impression and plan of care has been dictated by Cher Ochoa, Nurse Practitioner as directed. Dr. Emir MD I have performed a history and examination and MDM of this patient, discussed t he same with the dictator, and agree with the dictator's assessment and plan as written ,documented as a scribe. Based on total visit time, I have performed more than 50% of the visit. Patient Condition at Discharge: Stable Plan - Discharge Summary Discharge Rx Participant: No New Discharge Prescriptions: New Atorvastatin [Lipitor] 80 mg PO DAILY #90 tab Nitroglycerin Sl Tabs [Nitrostat] 0.4 mg SUBLINGUAL Q5M PRN #25 tab PRN Reason: Chest Pain Clopidogrel [Plavix] 75 mg PO DAILY #90 tab Continue Multivitamins, Thera [Multivitamin (formulary)] 1 tab PO DAILY Calcium Carbonate [Calcium] 600 mg PO DAILY Aspirin 81 mg PO DAILY chew Triamcinolone 0.1% Cream [Kenalog 0.1% Cream] 1 applicatio TOPICAL BID Meloxicam [Mobic] 15 mg PO DAILY Clotrimazole Cream [Lotrimin Cream] 1 applic TOPICAL BID Turmeric Root Extract [Turmeric] 500 mg PO DAILY Loratadine [Claritin] 10 mg PO DAILY #30 tab Isosorbide Mononitrate ER [Imdur] 30 mg PO DAILY #30 tab HYDROcodone/APAP 7.5-325MG [[place] 7.5-325] 1 tab PO TID PRN PRN Reason: Pain Ranolazine [Ranexa] 500 mg PO Q12HR 30 Days #60 tab Acetaminophen Tab [Tylenol] 650 mg PO Q6HR PRN tab PRN Reason: Fever And/ Or Pain Losartan-Hctz 50-12.5 mg [Hyzaar 50-12.5] 1 tab PO DAILY #30 tablet Discontinued Rosuvastatin Calcium [Crestor] 40 mg PO DAILY Discharge Medication List Calcium Carbonate [Calcium] 600 mg PO DAILY 03/28/18 [History] Multivitamins, Thera [Multivitamin (formulary)] 1 tab PO DAILY 03/28/18 [History] Aspirin 81 mg PO DAILY chew 03/31/18 [Rx] Meloxicam [Mobic] 15 mg PO DAILY 02/14/19 [History] Triamcinolone 0.1% Cream [Kenalog 0.1% Cream] 1 applicatio TOPICAL BID 02/14/19 [History] Clotrimazole Cream [Lotrimin Cream] 1 applic TOPICAL BID 10/01/23 [History] HYDROcodone/APAP 7.5-325MG [[place] 7.5-325] 1 tab PO TID PRN 10/01/23 [History] Turmeric Root Extract [Turmeric] 500 mg PO DAILY 10/01/23 [History] Acetaminophen Tab [Tylenol] 650 mg PO Q6HR PRN tab 10/03/23 [Rx] Isosorbide Mononitrate ER [Imdur] 30 mg PO DAILY #30 tab 10/03/23 [Rx] Loratadine [Claritin] 10 mg PO DAILY #30 tab 10/03/23 [Rx] Losartan-Hctz 50-12.5 mg [Hyzaar 50-12.5] 1 tab PO DAILY #30 tablet 10/03/23 [Rx] Ranolazine [Ranexa] 500 mg PO Q12HR 30 Days #60 tab 10/03/23 [Rx] Atorvastatin [Lipitor] 80 mg PO DAILY #90 tab 10/19/23 [Rx] Clopidogrel [Plavix] 75 mg PO DAILY #90 tab 10/19/23 [Rx] Nitroglycerin Sl Tabs [Nitrostat] 0.4 mg SUBLINGUAL Q5M PRN #25 tab 10/19/23 [Rx] Follow up Appointment(s)/Referral(s): René Burkett MD [STAFF PHYSICIAN] - 10/27/23 10:00 am Rg Linton MD [Primary Care Provider] - 1-2 days Patient Instructions/Handouts: *Surgery [facility] - After Heart Catheterization - [employer] Instructions, Heart Catheterization (GEN) Activity/Diet/Wound Care/Special Instructions: Activity limited until follow-up Follow-up with primary care provider on discharge Continue taking medications as prescribed Follow-up with cardiology outpatient in 1 to 2 weeks Discharge Disposition: HOME SELF-CARE
== END 2023-10-19 13:50 | disposition home or self-care (01) | DRG 322 ==
LOC: SUPCPDRO 21:09 → EC 21:09 → 6NMEDSUR 23:14 → OBSVTOIN 10-19 07:17
PROVIDERS: ADMIT Hospitalist; ATTEND Hospitalist
PROC: 4A023N7 Measurement of Cardiac Sampling and Pressure, Left Heart, Percutaneous Approach (ICD-10-PCS; principal; 2023-10-18 11:55)
PROC: 027034Z Dilation of Coronary Artery, One Artery with Drug-eluting Intraluminal Device, Percutaneous Approach (ICD-10-PCS; 2023-10-18 11:55)
PROC: B2111ZZ Fluoroscopy of Multiple Coronary Arteries using Low Osmolar Contrast (ICD-10-PCS; 2023-10-18 11:55)
DX: I25.118 Atherosclerotic heart disease of native coronary artery with other forms of angina pectoris (principal); Z68.42 Body mass index [BMI] 45.0-49.9, adult; I42.9 Cardiomyopathy, unspecified; E11.51 Type 2 diabetes mellitus with diabetic peripheral angiopathy without gangrene; E66.01 Morbid (severe) obesity due to excess calories; I08.3 Combined rheumatic disorders of mitral, aortic and tricuspid valves; I10 Essential (primary) hypertension; E78.5 Hyperlipidemia, unspecified; I87.2 Venous insufficiency (chronic) (peripheral); G47.33 Obstructive sleep apnea (adult) (pediatric); I45.10 Unspecified right bundle-branch block; I44.0 Atrioventricular block, first degree; I49.3 Ventricular premature depolarization; Z96.641 Presence of right artificial hip joint; Z96.652 Presence of left artificial knee joint; Z96.611 Presence of right artificial shoulder joint; Z87.891 Personal history of nicotine dependence; Z82.49 Family history of ischemic heart disease and other diseases of the circulatory system; Z79.1 Long term (current) use of non-steroidal anti-inflammatories (NSAID); Z79.899 Other long term (current) drug therapy; Z79.82 Long term (current) use of aspirin; Z88.8 Allergy status to other drugs, medicaments and biological substances; Z98.84 Bariatric surgery status; I25.2 Old myocardial infarction; Z86.19 Personal history of other infectious and parasitic diseases
CPT/HCPCS: 36415; 71046; 80048; 80053; 80061; 83735; 84484; 85025; 85610; 85730; 92978; 93005; 93458; 93799; 94760; 96374; 99285

== ENCOUNTER → 2023-11-21 | Outpatient (CLI) | payer MEDICARE, OTHER ==
--- NOTE | 2023-11-21 09:00 | P.HPBAR ---
Bariatric H&P - History & Physicial H&P Date: 11/21/23 History & Physicial: Visit/CC: Patient initial contact: Initial weight: Initial weight in pounds: Height: Initial BMI: Last weight: Current weight: Current weight in pounds: Current BMI: [place] body weight (based on NIH guidelines): Excess body weight loss: The patient is a 78 year-old M who presents for Bariatric Assessment.This is a 78-year-old male who has previous history patient has complaints of dysphagia and food being stuck in his lower esophagus. Patient was recently started on Protonix by his PCP. Patient states he has had a slight improvement in his symptoms. He is undergone recent cardiac stent placement. He is also on Plavix. Past Medical History Past Medical History: Coronary Artery Disease (CAD), Diabetes Mellitus, Eye Disorder, Hyperlipidemia, Hypertension, Osteoarthritis (OA), Sleep Apnea/CPAP/BIPAP Additional Past Medical History / Comment(s): tammie 2002, in past was treated for diabetres but after bariatric sx lost 100# no longer needed insuling and only checks bs occ. no longer needs cpap machine since wt loss. ddd pt stated he had his back stretched by jayson wilson at [facility] in [place]. has the start of macular degeneration-has'nt progressed inpast 3 years. has abrasion lt lower leg. History of Any Multi-Drug Resistant Organisms: None Reported Past Surgical History: Bariatric Surgery, Orthopedic Surgery Additional Past Surgical History / Comment(s): bilcarpel tunnel release,gastric sleeve, alice cataracts, rt foot reconstruction d/t being flat footed. lt knee replacment, rt shoulder replacment, rt hip replacement, lt shoulder rebuilt Past Anesthesia/Blood Transfusion Reactions: No Reported Reaction Past Psychological History: No Psychological Hx Reported Smoking Status: Former smoker Past Alcohol Use History: None Reported Past Drug Use History: None Reported - Past Family History Mother Family Medical History: Dementia Additional Family Medical History / Comment(s): at age 94 -dementia Father Family Medical History: Diabetes Mellitus, Myocardial Infarction ([place]) Additional Family Medical History / Comment(s): at age 69 from [place]. Brother(s) Family Medical History: Diabetes Mellitus Sister(s) Family Medical History: Cancer Surgical - Exam - General well developed, well nourished, no distress - Eyes PERRL - ENT normal pinna - Neck no masses - Respiratory normal expansion - Cardiovascular Rhythm: regular - Abdomen Abdomen: soft, non tender Bariatric Assessment & Plan Plan: Dysphagia. Patient cannot undergo EGD currently. He does have cardiac stent placement 2 weeks ago. Currently on blood thinners. Patient be scheduled for esophagram upper GI. He'll follow-up next week. Bariatric Checklist Checklist: Plan: Checklist: EGD: 1. Hiatal hernia: 2. H. Pylori: HgbA1c: Vitamin D: Smoking: Former smoker Primary care physician referral: Psychiatry clearance: Cardiology clearance: Sleep study: Diet journal: VTE risk score: VTE risk level: Rehab needs at discharge:
[2023-11-21 10:38] VITALS: BP 110/59; PULSE 60; RESP 14; TEMP 97.6
--- NOTE | 2023-11-21 11:57 | FL ---
SINGLE CONTRAST BARIUM SWALLOW: CLINICAL HISTORY: 78-year-old male R13.10 DYSPHAGIA, K21.9 GERD . TECHNIQUE: Single contrast exam performed with thin barium. Total fluoroscopy time 1 minute and 44 seconds. Total images: 28. Total DAP: 15 mGycm2. FINDINGS: The patient swallowed oral contrast without difficulty or delay. Moderate tertiary peristaltic contr actions are demonstrated with some delay in clearance of contrast from the esophagus. There is normal course and caliber of the esophagus. No abnormal narrowing. Allowing for single contrast technique, no evident mucosal lesion or suspicious filling defect is seen. Normal flow of contrast across the GE junction. In the upper abdomen, we note postoperative changes o f sleeve gastrectomy. No sizable hiatal hernia seen. IMPRESSION: 1. Moderate esophageal dysmotility but without any stricture or obstruction. 2. Previous sleeve gastrectomy.
== END ==
LOC: BARWHC3 08:15
PROVIDERS: ATTEND Surgery
DX: R13.10 Dysphagia, unspecified (principal); K21.9 Gastro-esophageal reflux disease without esophagitis; K22.4 Dyskinesia of esophagus; I10 Essential (primary) hypertension; I25.10 Atherosclerotic heart disease of native coronary artery without angina pectoris; Z98.84 Bariatric surgery status; Z95.5 Presence of coronary angioplasty implant and graft; Z79.01 Long term (current) use of anticoagulants; Z87.891 Personal history of nicotine dependence; Z79.02 Long term (current) use of antithrombotics/antiplatelets; Z88.8 Allergy status to other drugs, medicaments and biological substances; Z79.899 Other long term (current) drug therapy
CPT/HCPCS: 74220; G0463; 99211

== ENCOUNTER → 2023-11-28 | Outpatient (CLI) | payer MEDICARE, OTHER ==
[2023-11-28 13:06] VITALS: BP 146/74; PULSE 50; RESP 14; TEMP 97.9
== END ==
LOC: BARWHC3 09:07
PROVIDERS: ATTEND Surgery
DX: E66.01 Morbid (severe) obesity due to excess calories (principal); Z88.8 Allergy status to other drugs, medicaments and biological substances; Z87.891 Personal history of nicotine dependence
CPT/HCPCS: 99211

== ENCOUNTER 2024-02-14 07:36 | Day surgery (SDC) | payer MEDICARE, OTHER ==
[2024-02-09 11:29] VITALS: BMI 43.5
[2024-02-14 08:35] VITALS: TEMP 96.8
[2024-02-14] MEDS: LACTATED RINGERS 1,000 ML IV SCH (08:38)
[2024-02-14] MEDS: LIDOCAINE 1% (10MG/ML) FOR IV START INTRADERMA PRN (08:39)
[2024-02-14] MEDS: IV FLUID CONTINUATION 1,000 ML IV ONE (08:39)
[2024-02-14 08:52] LABS: Glucose,Whole Blood 109 mg/dL (70-110)
[2024-02-14] MEDS ORDERED: LIDOCAINE 1% INJ 10MG/ML (20 ML MDV) ONE (09:31)
[2024-02-14] MEDS ORDERED: PROPOFOL 10 MG/ML 20 ML VIAL IV ONE (09:31)
--- NOTE | 2024-02-14 09:44 | P.PCN ---
Date of Procedure: 02/14/24 Procedure(s) Performed: BRIEF HISTORY: Patient is a 78-year-old, pleasant, white male scheduled for an upper endoscopy as a part evaluation of intermittent dysphagia to solids for the last 6 months duration. . PROCEDURE PERFORMED: Esophagogastroduodenoscopy with biopsy and dilation. PREOPERATIVE DIAGNOSIS: Intermittent dysphagia to solids. IV sedation per anesthesia. PROCEDURE: After informed consent was obtained, the patient was brought into the endoscopy unit. IV sedation was administered by Anesthesia under continuous monitoring. Initially the Olympus GIF-140 video endoscope was inserted into the mouth. Esophagus intubated without any difficulty. It was gradually advanced into the stomach and duodenum and carefully examined. The bulb and the second part of the duodenum appeared normal. The scope at this time was withdrawn to the stomach, adequately insufflated with air, and upon careful examination, mucosa of the antrum, body, cardia and the fundus appeared normal. The scope was then withdrawn into the esophagus. The GE junction was located at 39 cm from the incisors. There was a distal esophageal widely patent Schatzki's ring identified that was dilated using 20 mm TTS balloon for 30 seconds. There were no erosions or ulcerations seen. In the proximal esophagus there was small whitish plaques identified and biopsies were done from the stated above the Melonie esophagitis and the patient tolerated the procedure well. IMPRESSION: 1. Distal esophageal Schatzki's ring s/p balloon dilation using 20 mm TTS balloon as described above. 2. Small whitish plaques in the proximal esophagus status post biopsies to rule out Melonie esophagitis. RECOMMENDATIONS: The findings of this examination were discussed with the patient as well as his family. He was advised to follow-up with the biopsy results recommended clear liquid diet for 2 hours. Follow-up in the office as needed.
[2024-02-14 10:11] VITALS: RESP 16
[2024-02-14 10:46] VITALS: BP 128/67; PULSE 65
== END 2024-02-14 10:49 | disposition home or self-care (01) ==
LOC: ORWHC2ENDO 07:36
PROVIDERS: ATTEND Internal Medicine Gastroenterology
DX: K20.90 Esophagitis, unspecified without bleeding (principal); I11.0 Hypertensive heart disease with heart failure; E78.5 Hyperlipidemia, unspecified; E11.9 Type 2 diabetes mellitus without complications; G47.33 Obstructive sleep apnea (adult) (pediatric); Z88.8 Allergy status to other drugs, medicaments and biological substances; Z79.899 Other long term (current) drug therapy; Z79.84 Long term (current) use of oral hypoglycemic drugs
CPT/HCPCS: 88305; 43239; 43249; J2001; J2704; C1726